=== PATIENT | female | born 1995 | race African-American/Black ===

== ENCOUNTER 2018-03-06 06:06 | Emergency (ER) | payer BC, OTHER ==
[2018-03-06 07:27] LABS: Absolute Lymphocytes (CBC) 2.3 K/uL (0.7-4.9); Absolute Monocytes 0.4 K/uL (0.1-1.3); Absolute Neutrophil 5.1 K/uL (1.8-8.0); Basophils % 0.4 % (0-1.3); Bicarbonate 25 mEq/L (21-31); Eosinophils % 1.9 % (0-4.4); Glucose Level 116 mg/dL (65-120); Hematocrit 36.4 % (36.0-45.0); Lipase 24 U/L (22-51); Lymphocytes % 28.7 % (15.3-44.8); MCV 80.5 fL (80-100); MPV 8.4 fL (7.6-11.3); Monocytes % 5.1 % (3.3-12.3); Potassium 3.6 mEq/L (3.6-5.0); RBC Red Blood Cell Count 4.53 M/uL (3.86-4.86); Sodium Level 135 mEq/L (135-145)
[2018-03-06 07:30] LABS: ALT/SGPT 15 IU/L (10-60); AST/SGOT 18 IU/L (10-42); Albumin 3.9 g/dL (3.2-5.5); Alkaline Phosphatase 69 IU/L (42-121); BUN Blood Urea Nitrogen 6 mg/dL (6-20); Bilirubin Total 0.3 mg/dL (0.3-1.2); Protein, Total 7.5 g/dL (6.0-8.3)
--- NOTE | 2018-03-06 07:58 | EKG ---
Test Date: 2018-03-06 Test Time: 07:39:20 American History Teacher: MESERET MEASUREMENT RESULTS: Intervals: Rate: 67 ME: 146 QRSD: 78 QT: 414 QTc: 437 [place]: P: 7 ME: 146 QRS: 47 T: 11 INTERPRETIVE STATEMENTS: Sinus rhythm with marked sinus arrhythmia Otherwise normal ECG No previous ECG available for comparison Electronically Signed On 03-06-18 07:57:58 CDT by Johnny Villanueva
--- NOTE | 2018-03-06 08:54 | RAD REPORT ---
EXAM DESCRIPTION: RAD - Chest Single View - 03/06/2018 6:53 am CLINICAL HISTORY: Chest pain. COMPARISON: None. FINDINGS: Portable technique limits examination quality. The lungs are grossly clear. The heart is normal in size. No displaced fractures. IMPRESSION: No acute intrathoracic process suspected.
--- NOTE | 2018-03-06 09:06 | EDPHYS ---
Physician Documentation [facility] Name: Pablito Irwin Age: 22 yrs Sex: Female : 1995 Arrival Date: 03/06/2018 Time: 06:10 Bed 15 Private MD: ED Physician Duane Morgan HPI: 03/06 06:54 This 22 yrs old Black Female presents to ER via Ambulatory with complaints of Chest pm1 Pain. 06:54 The patient or guardian reports chest pain that is located primarily in the substernal pm1 area. The pain does not radiate. Associated signs and symptoms: Pertinent negatives: cough, nausea, palpitations, shortness of breath, vomiting. Duration: The patient or guardian reports a single episode, that is now resolved. Modifying factors: the symptoms are aggravated by deep breath, emotionally stressful situations. Severity of pain: in the emergency department the pain has resolved. Patient had an argument with her sister and it caused her chest pain. Chest pain increased with deep breathing and palpation. Chest pain is now resolved. Patient with abdominal pain on and off for the past three weeks. Patient without current abdominal pain. No nausea, vomiting, diarrhea, or fever. 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 - Social history:: Smoking status: Patient/guardian denies using tobacco. ROS: 06:54 Constitutional: Negative for fever, chills, and weight loss, Eyes: Negative for injury, pm1 pain, redness, and discharge, ENT: Negative for injury, pain, and discharge, Neck: Negative for injury, pain, and swelling, Respiratory: Negative for shortness of breath, cough, wheezing, and pleuritic chest pain. 06:54 Back: Negative for injury and pain, : Negative for injury, bleeding, discharge, and swelling, MS/Extremity: Negative for injury and deformity, Skin: Negative for injury, rash, and discoloration, Neuro: Negative for headache, weakness, numbness, tingling, and seizure. 06:54 Cardiovascular: Positive for chest pain, Negative for edema, orthopnea, palpitations, paroxysmal nocturnal dyspnea. 06:54 Abdomen/GI: Positive for Abdominal pain on and off for the past three weeks that is not present now, Negative for nausea, vomiting, and diarrhea. Exam: 06:54 Constitutional: This is a well developed, well nourished patient who is awake, alert, pm1 and in no acute distress. Head/Face: Normocephalic, atraumatic. Eyes: Pupils equal round and reactive to light, extra-ocular motions intact. Lids and lashes normal. Conjunctiva and sclera are non-icteric and not injected. Cornea within normal limits. Periorbital areas with no swelling, redness, or edema. ENT: Nares patent. No nasal discharge, no septal abnormalities noted. Tympanic membranes are normal and external auditory canals are clear. Oropharynx with no redness, swelling, or masses, exudates, or evidence of obstruction, uvula midline. Mucous membranes moist. Neck: Trachea midline, no thyromegaly or masses palpated, and no cervical lymphadenopathy. Supple, full range of motion without nuchal rigidity, or vertebral point tenderness. No Meningismus. Chest/axilla: Normal chest wall appearance and motion. Nontender with no deformity. No lesions are appreciated. Cardiovascular: Regular rate and rhythm with a normal S1 and S2. No gallops, murmurs, or rubs. Normal PMI, no JVD. No pulse deficits. Respiratory: Lungs have equal breath sounds bilaterally, clear to auscultation and percussion. No rales, rhonchi or wheezes noted. No increased work of breathing, no retractions or nasal flaring. Abdomen/GI: Soft, non-tender, with normal bowel sounds. No distension or tympany. No guarding or rebound. No evidence of tenderness throughout. Back: No spinal tenderness. No costovertebral tenderness. Full range of motion. Skin: Warm, dry with normal turgor. Normal color with no rashes, no lesions, and no evidence of cellulitis. MS/ Extremity: Pulses equal, no cyanosis. Neurovascular intact. Full, normal range of motion. 06:54 Neuro: Orientation: is normal, Motor: moves all fours, Sensation: is normal, Gait: is steady, at a normal pace, without difficulty. Vital Signs: 06:29 BP 123 / 80; Pulse 86; Resp 18 S; Temp 98(O); Pulse Ox 99% on R/A; Weight 97.52 kg (R); bb Height 5 ft. 11 in. (180.34 cm) (R); Pain 8/10; 06:46 BP 138 / 78; Pulse 88; Resp 18; Pulse Ox 100% ; wh 09:34 BP 128 / 75; Pulse 86; Resp 18; Pulse Ox 100% on R/A; hj 06:29 Body Mass Index 29.99 (97.52 kg, 180.34 cm) bb MDM: 06:24 Patient medically screened. pm1 07:01 Data reviewed: vital signs. Data interpreted: Pulse oximetry: on room air is 100 %. pm1 Interpretation: normal. 09:05 Counseling: I had a detailed discussion with the patient and/or guardian regarding: the pm1 historical points, exam findings, and any diagnostic results supporting the discharge/admit diagnosis, lab results, radiology results, the need for outpatient follow up, to return to the emergency department if symptoms worsen or persist or if there are any questions or concerns that arise at home. 03/06 06:39 Order name: CBC with Diff; Complete Time: 08:31 pm03/06 06:39 Order name: Troponin (emerg Dept Use Only); Complete Time: 08:31 pm03/06 06:39 Order name: CMP; Complete Time: 08:31 pm03/06 06:40 Order name: Lipase; Complete Time: 08:31 pm1 03/06 06:55 Order name: Urine Dipstick--Ancillary (enter results) oe 03/06 06:56 Order name: Urine Dipstick-Ancillary EDFL 03/06 06:39 Order name: Urine Test (obtain specimen); Complete Time: 06:53 pm03/06 06:39 Order name: XRAY Chest (1 view); Complete Time: 09:04 pm03/06 06:39 Order name: EKG; Complete Time: 06:39 pm03/06 06:39 Order name: Cardiac monitoring; Complete Time: 06:54 pm03/06 06:39 Order name: EKG - Nurse/Tech; Complete Time: 06:57 pm1 03/06 06:39 Order name: IV Saline Lock; Complete Time: 06:54 pm03/06 06:39 Order name: Labs collected and sent; Complete Time: 06:57 pm1 03/06 06:56 Order name: Urine --Ancillary (enter results) oe 03/06 06:39 Order name: O2 Per Protocol; Complete Time: 06:54 pm1 03/06 06:39 Order name: O2 Sat Monitoring; Complete Time: 06:54 pm1 03/06 06:39 Order name: Urine Dipstick-Ancillary (obtain specimen); Complete Time: 06:53 pm1 Administered Medications: No medications were administered Disposition: 03/06/18 09:05 Discharged to Home. Impression: Chest pain, unspecified. - Condition is Stable. - Discharge Instructions: Nonspecific Chest Pain. - Medication Reconciliation Form, Thank You Letter form. - Follow up: Emergency Department; When: As needed; Reason: Worsening of condition. Follow up: Private Physician; When: 2 - 3 days; Reason: Recheck today's complaints, Continuance of care, Re-evaluation by your physician. - Problem is new. - Symptoms are resolved. Addendum: 03/11/2018 06:21 Co-signature as Attending Physician, Duane Morgan MD. g s Signatures: Dispatcher [employer] EDDaniella Wells RN RN Valentín Traore RN RN hj Seun Amin, PRICE CHECKER PRICE CHECKER pm1 Penelope Bautista Gregory, MD MD
--- NOTE | 2018-03-06 09:06 | ER ---
Nurse's Notes [facility] Name: Pablito Irwin Age: 22 yrs Sex: Female : 1995 Arrival Date: 03/06/2018 Time: 06:10 Bed 15 Private MD: Diagnosis: Chest pain, unspecified Presentation: 03/06 06:27 Presenting complaint: Patient states: she has had abdominal pain x 3 weeks did have bb diarrhea but not now, denies vomiting, cough, congestion states her feet have been swelling off and on x 3 weeks and she has frequent headaches. Transition of care: patient was not received from another setting of care. Onset of symptoms is unknown. Care prior to arrival: None. 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 - Social history:: Smoking status: Patient/guardian denies using tobacco. Screenin:44 Abuse screen: Denies threats or abuse. Denies injuries from another. Nutritional wh screening: No deficits noted. Tuberculosis screening: No symptoms or risk factors identified. Fall Risk None identified. Assessment: 06:41 General: Appears in no apparent distress. comfortable, Behavior is calm, cooperative, wh appropriate for age. Pain: Complains of pain in chest pain that started a few days ago and stomach pain that started a few weeks ago Pain does not radiate. Pain currently is 8 out of 10 on a pain scale. Neuro: Level of Consciousness is awake, alert, obeys commands, Oriented to person, place, time, situation. Cardiovascular: Reports chest pain, since a few days ago on and off Heart tones S1 S2 Capillary refill < 3 seconds. Respiratory: Reports shortness of breath Airway is patent Respiratory effort is even, unlabored, Respiratory pattern is regular, symmetrical, Breath sounds are clear bilaterally. GI: Abdomen is round non-distended, Bowel sounds present X 4 quads. Abd is soft and non tender X 4 quads. Reports upper abdominal pain, since a couple of weeks ago. : No signs and/or symptoms were reported regarding the genitourinary system. EENT: No signs and/or symptoms were reported regarding the EENT system. Derm: Skin is intact, is healthy with good turgor, Skin is pink, warm \T\ dry. normal. Musculoskeletal: Range of motion: intact in all extremities. 07:10 General: Appears in no apparent distress. comfortable, Behavior is calm, cooperative, hj appropriate for age. Pain: Complains of pain in chest Pain does not radiate. Pain currently is 8 out of 10 on a pain scale. Neuro: Level of Consciousness is awake, alert, obeys commands, Oriented to person, place, time, situation. Cardiovascular: Heart tones S1 S2 present Capillary refill is > 3 seconds Patient's skin is warm and dry. Respiratory: Reports shortness of breath Airway is patent Respiratory effort is even, unlabored, Respiratory pattern is regular, symmetrical, Breath sounds are clear. GI: Abdomen is non-distended, Bowel sounds present X 4 quads. Abd is soft and non tender Reports upper abdominal pain. : No signs and/or symptoms were reported regarding the genitourinary system. EENT: No signs and/or symptoms were reported regarding the EENT system. Derm: No signs and/or symptoms reported regarding the dermatologic system. Musculoskeletal: No signs and/or symptoms reported regarding the musculoskeletal system. Vital Signs: 06:29 BP 123 / 80; Pulse 86; Resp 18 S; Temp 98(O); Pulse Ox 99% on R/A; Weight 97.52 kg (R); bb Height 5 ft. 11 in. (180.34 cm) (R); Pain 8/10; 06:46 BP 138 / 78; Pulse 88; Resp 18; Pulse Ox 100% ; wh 09:34 BP 128 / 75; Pulse 86; Resp 18; Pulse Ox 100% on R/A; hj 06:29 Body Mass Index 29.99 (97.52 kg, 180.34 cm) bb ED Course: 06:10 Patient arrived in ED. al2 06:21 Seun Amin NP is PHCP. pm1 06:21 Duane Morgan MD is Attending Physician. pm1 06:29 Triage completed. bb 06:29 Arm band placed on Patient placed in an exam room, on a stretcher, on pulse oximetry. bb Family accompanied patient. 06:40 Penelope Bautista is Primary Nurse. 06:44 Patient has correct armband on for positive identification. Bed in low position. Call light in reach. Side rails up X 1. radiation monitor on. Pulse ox on. NIBP on. 06:53 X-ray completed. Portable x-ray completed in exam room. Patient tolerated procedure jb2 well. 06:53 XRAY Chest (1 view) In Process Unspecified. EDMS 06:57 Inserted saline lock: 22 gauge in right antecubital area, using aseptic technique. Blood collected. 07:45 EKG done, by flight data technician. reviewed by Babak Winter MD. tc 09:32 No provider procedures requiring assistance completed. IV discontinued, intact, hj bleeding controlled, No redness/swelling at site. Pressure dressing applied. Administered Medications: No medications were administered Outcome: 09:05 Discharge ordered by . pm1 09:34 Discharged to home ambulatory. hj 09:34 Condition: stable 09:34 Discharge instructions given to patient, Instructed on discharge instructions, follow up and referral plans. Demonstrated understanding of instructions, follow-up care. 09:35 Patient left the ED. Signatures: Dispatcher [employer] EDMO Guy Dial2 Daniella Contreras, RN RN Patsy Bates, neurology epilepsy physician EKG Ttc Valentín Dalton RN RN hj Seun Amin, SHIPPING LEAD SHIPPING LEAD pm1 Penelope Bautista Dyana Castaneda2
[2018-03-06 10:44] LABS: Urine Blood NEGATIVE (NEG); Urine Glucose NEGATIVE (NEG); Urine Protein NEGATIVE (NEG); Urine Specific Gravity >1.030 (1.005-1.030)
[2018-03-06 10:44] LABS: Urine Specific Gravity >1.030 (1.005-1.030)
== END 2018-03-06 09:35 | disposition home or self-care (01) ==
LOC: ER 06:06
DX: R07.9 Chest pain, unspecified (principal)
CPT/HCPCS: 36415; 71045; 80053; 81003; 81025; 83690; 84484; 85025; 93005; 99284

== ENCOUNTER 2018-04-16 19:14 | Emergency (ER) | payer BC ==
[2018-04-16] MEDS ORDERED: IBUPROFEN 200 MG TAB PO ONE (19:53)
--- NOTE | 2018-04-16 20:34 | ER ---
Nurse's Notes [facility] Name: Pablito Irwin Age: 23 yrs Sex: Female : 1995 Arrival Date: 04/16/2018 Time: 19:16 Bed 9 Private MD: Diagnosis: Pain in left shoulder Presentation: 04/16 19:19 Presenting complaint: Patient states: Sunday I was reaching for something and I just aj1 got this pain in my shoulder and then today when I was laying in bed I picked my daughter up and I had a sharp pain and its just gotten worse and worse after that. Limited ROM to left shoulder. 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 Transition of care: patient was not received from another setting of care. Onset of symptoms was April 14, 2018. Risk Assessment: Do you want to hurt yourself or someone else? Patient reports no desire to harm self or others. Initial Sepsis Screen: Does the patient meet any 2 criteria? No. Patient's initial sepsis screen is negative. Does the patient have a suspected source of infection? No. Patient's initial sepsis screen is negative. Care prior to arrival: None. 19:19 Method Of Arrival: Ambulatory [facility] 19:19 Acuity: ADONIS 4 aj1 Triage Assessment: 19:21 General: Appears in no apparent distress. uncomfortable, Behavior is calm, cooperative, aj1 appropriate for age. Pain: Complains of pain in anterior aspect of left shoulder and posterior aspect of left shoulder Pain does not radiate. Pain currently is 8 out of 10 on a pain scale. Quality of pain is described as sharp, Pain began 2-3 days ago. Is continuous, Alleviated by nothing. Aggravated by increased activity, repositioning. Musculoskeletal: Capillary refill < 3 seconds, in left fingers. Range of motion: intact in left shoulder. 20:00 Neuro: Level of Consciousness is alert, obeys commands, Oriented to person, place, rk2 time, situation. 20:00 Respiratory: Airway is patent Respiratory effort is even, unlabored, Respiratory rk2 pattern is regular, symmetrical. 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 - Social history:: Smoking status: Patient/guardian denies using tobacco. - Ebola Screening: : No symptoms or risks identified at this time. - Family history:: not pertinent. Screenin:00 Abuse screen: Denies threats or abuse. rk2 20:00 Nutritional screening: No deficits noted. Tuberculosis screening: No symptoms or risk rk2 factors identified. Fall Risk None identified. Vital Signs: 19:21 BP 123 / 75; Pulse 110; Resp 20; Temp 98.0; Pulse Ox 100% on R/A; Weight 97.52 kg (R); aj1 Height 5 ft. 11 in. (180.34 cm) (R); Pain 8/10; 19:21 Body Mass Index 29.99 (97.52 kg, 180.34 cm) aj1 ED Course: 19:16 Patient arrived in ED. am2 19:21 Triage completed. aj1 19:21 Arm band placed on Patient placed in an exam room. aj1 19:27 Armando Flores MD is Attending Physician. [facility] 19:32 Giulia Call, GAY is Primary Nurse. rk2 20:00 Patient has correct armband on for positive identification. Bed in low position. Call rk2 light in reach. 20:23 Shoulder Left (2 View) XRAY Sent. rk2 20:28 X-ray completed. Portable x-ray completed in exam room. Patient tolerated procedure kc2 well. 20:30 Shoulder Left (2 View) XRAY In Process Unspecified. EDMS 20:33 Venu Smith MD is Referral Physician. [facility] 20:54 No provider procedures requiring assistance completed. Patient did not have IV access rk2 during this emergency room visit. Administered Medications: 19:58 Drug: Motrin 600 mg Route: PO; rk2 20:52 Follow up: Response: No adverse reaction rk2 Outcome: 20:33 Discharge ordered by . erika 20:54 Discharged to home ambulatory. rk2 20:54 Condition: good 20:54 Discharge instructions given to patient, Prescriptions given X 2. 20:55 Patient left the ED. rk2 Signatures: Dispatcher [employer] EDME Martha Arriaga RN RN aj1 Armando Flores MD MD cha Carr, Kelsie 2 Keena Valadez am2 Giulia Call, RN RN rk2
--- NOTE | 2018-04-16 20:34 | EDPHYS ---
Physician Documentation [facility] Name: Pablito Irwin Age: 23 yrs Sex: Female : 1995 Arrival Date: 04/16/2018 Time: 19:16 Bed 9 Private MD: ED Physician Armando Flores HPI: 04/16 19:47 This 23 yrs old Black Female presents to ER via Ambulatory with complaints of Shoulder erika Pain. 19:47 The patient or guardian complains of decreased range of motion, pain. left shoulder. erika Context: resulted from an unknown reason, The patient experiences decreased range of motion. Onset: The symptoms/episode began/occurred 3 day(s) ago. Modifying factors: the symptoms are alleviated by remaining still, The symptoms are aggravated by movement, rotation of arm. Associated signs and symptoms: The patient has no apparent associated signs or symptoms. Severity of symptoms: At their worst the symptoms were mild, moderate, in the emergency department the symptoms are unchanged. The patient has not experienced similar symptoms in the past. 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 - Social history:: Smoking status: Patient/guardian denies using tobacco. - Ebola Screening: : No symptoms or risks identified at this time. - Family history:: not pertinent. ROS: 19:47 Constitutional: Negative for fever, chills, and weight loss, Eyes: Negative for injury, erika pain, redness, and discharge, ENT: Negative for injury, pain, and discharge, Neck: Negative for injury, pain, and swelling, Cardiovascular: Negative for chest pain, palpitations, and edema, Respiratory: Negative for shortness of breath, cough, wheezing, and pleuritic chest pain, Abdomen/GI: Negative for abdominal pain, nausea, vomiting, diarrhea, and constipation, Back: Negative for injury and pain, : Negative for injury, bleeding, discharge, and swelling, Skin: Negative for injury, rash, and discoloration, Neuro: Negative for headache, weakness, numbness, tingling, and seizure, Psych: Negative for depression, anxiety, suicide ideation, homicidal ideation, and hallucinations, Allergy/Immunology: Negative for hives, rash, and allergies, Endocrine: Negative for neck swelling, polydipsia, polyuria, polyphagia, and marked weight changes, Hematologic/Lymphatic: Negative for swollen nodes, abnormal bleeding, and unusual bruising. 19:47 MS/extremity: Positive for decreased range of motion, pain, tenderness, of the anterior aspect of left shoulder and posterior aspect of left shoulder. Exam: 19:47 Constitutional: This is a well developed, well nourished patient who is awake, alert, erika and in no acute distress. Head/Face: Normocephalic, atraumatic. Eyes: Pupils equal round and reactive to light, extra-ocular motions intact. Lids and lashes normal. Conjunctiva and sclera are non-icteric and not injected. Cornea within normal limits. Periorbital areas with no swelling, redness, or edema. ENT: Nares patent. No nasal discharge, no septal abnormalities noted. Tympanic membranes are normal and external auditory canals are clear. Oropharynx with no redness, swelling, or masses, exudates, or evidence of obstruction, uvula midline. Mucous membranes moist. Neck: Trachea midline, no thyromegaly or masses palpated, and no cervical lymphadenopathy. Supple, full range of motion without nuchal rigidity, or vertebral point tenderness. No Meningismus. Chest/axilla: Normal chest wall appearance and motion. Nontender with no deformity. No lesions are appreciated. Respiratory: Lungs have equal breath sounds bilaterally, clear to auscultation and percussion. No rales, rhonchi or wheezes noted. No increased work of breathing, no retractions or nasal flaring. Abdomen/GI: Soft, non-tender, with normal bowel sounds. No distension or tympany. No guarding or rebound. No evidence of tenderness throughout. Back: No spinal tenderness. No costovertebral tenderness. Full range of motion. Female : Normal external genitalia. Skin: Warm, dry with normal turgor. Normal color with no rashes, no lesions, and no evidence of cellulitis. Neuro: Awake and alert, GCS 15, oriented to person, place, time, and situation. Cranial nerves II-XII grossly intact. Motor strength 5/5 in all extremities. Sensory grossly intact. Cerebellar exam normal. Normal gait. 19:47 Cardiovascular: Rate: tachycardic, Rhythm: regular, Pulses: Pulses are 4+ in bilateral radial, brachial, femoral, popliteal, posterior tibial and and dorsalis pedis arteries.. Heart sounds: normal, Edema: is not appreciated, JVD: is not appreciated. Vital Signs: 19:21 BP 123 / 75; Pulse 110; Resp 20; Temp 98.0; Pulse Ox 100% on R/A; Weight 97.52 kg (R); aj1 Height 5 ft. 11 in. (180.34 cm) (R); Pain 8/10; 19:21 Body Mass Index 29.99 (97.52 kg, 180.34 cm) aj1 MDM: 19:27 Patient medically screened. [facility] 19:47 Data reviewed: vital signs, nurses notes, radiologic studies. [facility] 04/16 20:10 Order name: Urine Dipstick--Ancillary (enter results) [facility] 04/16 20:10 Order name: Urine --Ancillary (enter results) [facility] 04/16 19:46 Order name: Urine Dipstick-Ancillary (obtain specimen); Complete Time: 20:03 [facility] 04/16 19:46 Order name: Urine Test (obtain specimen); Complete Time: 20:03 [facility] 04/16 19:46 Order name: Shoulder Left (2 View) XRAY [facility] 04/16 19:47 Order name: Sling; Complete Time: 20:21 [facility] 04/16 19:47 Order name: Ice pack; Complete Time: 19:58 [facility] Administered Medications: 19:58 Drug: Motrin 600 mg Route: PO; rk2 20:52 Follow up: Response: No adverse reaction rk2 Disposition: 04/16/18 20:33 Discharged to Home. Impression: Pain in left shoulder. - Condition is Stable. - Discharge Instructions: Shoulder Pain, Shoulder Pain, [id number]. - Prescriptions for Naprosyn 500 mg Oral Tablet - take 1 tablet by ORAL route 2 times per day take with food; 20 tablet. Tylenol- Codeine #3 300-30 mg Oral Tablet - take 2 tablet by ORAL route every 6 hours As needed; 30 tablet. - Medication Reconciliation Form, Thank You Letter, Antibiotic Education, Prescription Opioid Use form. - Follow up: Private Physician; When: 5 - 6 days; Reason: Recheck today's complaints, Continuance of care, Re-evaluation by your physician. Follow up: Dr. Venu Smith; When: 2 - 3 days; Reason: Recheck today's complaints, Re-evaluation by your physician. - Problem is new. - Symptoms have improved. Signatures: Dispatcher [employer] EDMartha Jaramillo RN RN aj1 Armando Flores MD MD cha Kidder, Rhonda, RN RN rk2 Corrections: (The following items were deleted from the chart) 20:55 20:33 04/16/2018 20:33 Discharged to Home. Impression: Pain in left shoulder. Condition rk2 is Stable. Discharge Instructions: Shoulder Pain, Shoulder Pain, [id number]. Prescriptions for Naprosyn 500 mg Oral Tablet - take 1 tablet by ORAL route 2 times per day take with food; 20 tablet, Tylenol-Codeine #3 300-30 mg Oral Tablet - take 2 tablet by ORAL route every 6 hours As needed; 30 tablet. and Forms are Medication Reconciliation Form, Thank You Letter, Antibiotic Education, Prescription Opioid Use. Follow up: Private Physician; When: 5 - 6 days; Reason: Recheck today's complaints, Continuance of care, Re-evaluation by your physician. Follow up: Dr. Venu Smith; When: 2 - 3 days; Reason: Recheck today's complaints, Re-evaluation by your physician. Problem is new. Symptoms have improved. erika
--- NOTE | 2018-04-16 20:47 | RAD REPORT ---
EXAM DESCRIPTION: RAD - Shoulder Left 2 View - 04/16/2018 8:34 pm CLINICAL HISTORY: Left shoulder pain FINDINGS: No fracture or dislocation is seen. No bone or joint abnormality seen
[2018-04-16 22:23] LABS: Urine Blood NEGATIVE (NEG); Urine Glucose NEGATIVE (NEG); Urine Protein 1+ (NEG); Urine pH 7.5 (5.0-7.0)
== END 2018-04-16 20:55 | disposition home or self-care (01) ==
LOC: ER 19:14
DX: M25.512 Pain in left shoulder (principal)
CPT/HCPCS: 81003; 81025; 99283

== ENCOUNTER 2018-06-25 00:55 | Emergency (ER) | payer BC, OTHER, SELFPAY ==
--- NOTE | 2018-06-25 01:05 | EDPHYS ---
Physician Documentation [facility] Name: Pablito Irwin Age: 23 yrs Sex: Female : 1995 Arrival Date: 06/25/2018 Time: 00:55 Bed Waiting Private MD: ED Physician Babak Winter HPI: 06/25 01:30 This 23 yrs old Black Female presents to ER via Ambulatory with complaints of jr8 Toothache, Facial Pain. 01:30 The patient presents with pain. The problem is located in the right jaw. Onset: The jr8 symptoms/episode began/occurred acutely, 2 week(s) ago. Duration: The symptoms are continuous. Modifying factors: The symptoms are alleviated by nothing, the symptoms are aggravated by air, chewing, talking. Associated signs and symptoms: The patient has no apparent associated signs or symptoms. Severity of symptoms: At their worst the symptoms were moderate, in the emergency department the symptoms are unchanged. The patient has not experienced similar symptoms in the past. The patient has not recently seen a physician. 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 - Social history:: Smoking status: Patient/guardian denies using tobacco. - Ebola Screening: : No symptoms or risks identified at this time. ROS: 01:30 Eyes: Negative for injury, pain, redness, and discharge, Neck: Negative for injury, jr8 pain, and swelling, Cardiovascular: Negative for chest pain, palpitations, and edema, Respiratory: Negative for shortness of breath, cough, wheezing, and pleuritic chest pain, Abdomen/GI: Negative for abdominal pain, nausea, vomiting, diarrhea, and constipation, Back: Negative for injury and pain, MS/Extremity: Negative for injury and deformity, Skin: Negative for injury, rash, and discoloration, Neuro: Negative for headache, weakness, numbness, tingling, and seizure. 01:30 ENT: Positive for dental pain, Negative for drainage from ear(s), ear pain, tinnitus, nasal discharge, rhinorrhea, sinus congestion, sinus pain, sore throat, difficulty swallowing, difficulty handling secretions, hoarseness. Exam: 01:30 Eyes: Pupils equal round and reactive to light, extra-ocular motions intact. Lids and jr8 lashes normal. Conjunctiva and sclera are non-icteric and not injected. Cornea within normal limits. Periorbital areas with no swelling, redness, or edema. Neck: Trachea midline, no thyromegaly or masses palpated, and no cervical lymphadenopathy. Supple, full range of motion without nuchal rigidity, or vertebral point tenderness. No Meningismus. Cardiovascular: Regular rate and rhythm with a normal S1 and S2. No gallops, murmurs, or rubs. Normal PMI, no JVD. No pulse deficits. Respiratory: Lungs have equal breath sounds bilaterally, clear to auscultation and percussion. No rales, rhonchi or wheezes noted. No increased work of breathing, no retractions or nasal flaring. Abdomen/GI: Soft, non-tender, with normal bowel sounds. No distension or tympany. No guarding or rebound. No evidence of tenderness throughout. Back: No spinal tenderness. No costovertebral tenderness. Full range of motion. Skin: Warm, dry with normal turgor. Normal color with no rashes, no lesions, and no evidence of cellulitis. MS/ Extremity: Pulses equal, no cyanosis. Neurovascular intact. Full, normal range of motion. Neuro: Awake and alert, GCS 15, oriented to person, place, time, and situation. Cranial nerves II-XII grossly intact. Motor strength 5/5 in all extremities. Sensory grossly intact. Cerebellar exam normal. Normal gait. 01:30 ENT: Exam is negative for earache, ear discharge, hemotympanum, TM abnormalities, sinus tenderness, enlarged tonsils, pharyngitis, dysphagia, exudate, Dental exam: dental caries, that is moderate, specifically in the lower right second molar (#31), pain, that is moderate, specifically in the lower right second molar (#31). Vital Signs: 01:07 BP 112 / 81; Pulse 92; Resp 16 S; Temp 98.7(O); Pulse Ox 98% on R/A; Weight 93.44 kg bb (R); Height 5 ft. 11 in. (180.34 cm) (R); Pain 9/10; 01:07 Body Mass Index 28.73 (93.44 kg, 180.34 cm) bb MDM: 01:04 Patient medically screened. jr8 01:04 Data reviewed: vital signs, nurses notes, and as a result, I will discharge patient. jr8 Data interpreted: Pulse oximetry: on room air is 100 %. Interpretation: normal. Counseling: I had a detailed discussion with the patient and/or guardian regarding: the historical points, exam findings, and any diagnostic results supporting the discharge/admit diagnosis, the need for outpatient follow up, a dentist, to return to the emergency department if symptoms worsen or persist or if there are any questions or concerns that arise at home. Administered Medications: No medications were administered Disposition: 20:31 Co-signature as Attending Physician, Babak Winter MD I agree with the assessment and wv plan of care. Disposition: 06/25/18 01:05 Discharged to Home. Impression: Dental caries, Dentalgia . - Condition is Stable. - Prescriptions for Clindamycin HCl 300 mg Oral Capsule - take 1 capsule by ORAL route every 6 hours for 10 days; 40 capsule. Ibuprofen 800 mg Oral Tablet - take 1 tablet by ORAL route every 12 hours As needed take with food; 20 tablet. Tylenol- Codeine #3 300-30 mg Oral Tablet - take 2 tablets by ORAL route every 6 hours As needed; 12 tablet. - Medication Reconciliation Form, Thank You Letter, Antibiotic Education, Prescription Opioid Use form. - Follow up: Private Physician; When: 5 - 6 days; Reason: Recheck today's complaints, Continuance of care, Re-evaluation by your physician. - Problem is new. - Symptoms have improved. Signatures: Daniella Contreras RN RN bb Aditya Louis PA PA jr8 Babak Winter MD MD wv Corrections: (The following items were deleted from the chart) 01:14 01:05 06/25/2018 01:05 Discharged to Home. Impression: Dental caries; Dentalgia . bb Condition is Stable. Forms are Medication Reconciliation Form, Thank You Letter, Antibiotic Education, Prescription Opioid Use. Follow up: Private Physician; When: 5 - 6 days; Reason: Recheck today's complaints, Continuance of care, Re-evaluation by your physician. Problem is new. Symptoms have improved. jr8
--- NOTE | 2018-06-25 01:14 | ER ---
Nurse's Notes [facility] Name: Pablito Irwin Age: 23 yrs Sex: Female : 1995 Arrival Date: 06/25/2018 Time: 00:55 Bed Waiting Private MD: Diagnosis: Dental caries;Dentalgia Presentation: 06/25 01:08 Presenting complaint: Patient states: she has been having a toothache which started bb several months ago but has worsened over the last two weeks pt unable to sleep tonight. Transition of care: patient was not received from another setting of care. Onset of symptoms is unknown. Risk Assessment: Do you want to hurt yourself or someone else? Patient reports no desire to harm self or others. Initial Sepsis Screen: Does the patient meet any 2 criteria? No. Patient's initial sepsis screen is negative. Does the patient have a suspected source of infection? No. Patient's initial sepsis screen is negative. Care prior to arrival: None. 01:08 Method Of Arrival: Ambulatory bb 01:08 Acuity: ADONIS 5 bb Triage Assessment: 01:11 General: Appears in no apparent distress. uncomfortable, Behavior is calm, cooperative. bb Pain: Complains of pain in right jaw Pain currently is 9 out of 10 on a pain scale. EENT: Reports pain in right jaw. Neuro: Level of Consciousness is awake, alert, obeys commands, Oriented to person, place, time, situation. Cardiovascular: No deficits noted. Respiratory: Respiratory effort is even, unlabored. GI: No signs and/or symptoms were reported involving the gastrointestinal system. Derm: No deficits noted. No signs and/or symptoms reported regarding the dermatologic system. Musculoskeletal: Circulation, motion, and sensation intact. 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 - Social history:: Smoking status: Patient/guardian denies using tobacco. - Ebola Screening: : No symptoms or risks identified at this time. Screenin:13 Abuse screen: Denies threats or abuse. Nutritional screening: No deficits noted. bb Tuberculosis screening: No symptoms or risk factors identified. Fall Risk None identified. Assessment: 01:13 Reassessment: pt discharged from triage. bb Vital Signs: 01:07 BP 112 / 81; Pulse 92; Resp 16 S; Temp 98.7(O); Pulse Ox 98% on R/A; Weight 93.44 kg bb (R); Height 5 ft. 11 in. (180.34 cm) (R); Pain 9/10; 01:07 Body Mass Index 28.73 (93.44 kg, 180.34 cm) bb ED Course: 00:55 Patient arrived in ED. ds1 01:04 Aditya Louis PA is PHCP. jr8 01:04 Babak Winter MD is Attending Physician. jr8 01:09 Triage completed. bb 01:11 Arm band placed on Miguel BARNEY in triage for pt evaluation and recommendations pt to be bb given RXs and discharged home pt verbalized understanding of and agrees to plan of care.. 01:13 Patient has correct armband on for positive identification. bb 01:13 No provider procedures requiring assistance completed. Patient did not have IV access bb during this emergency room visit. Administered Medications: No medications were administered Outcome: 01:05 Discharge ordered by . jr8 01:14 Discharged to home ambulatory. bb 01:14 Condition: stable 01:14 Discharge instructions given to patient, Instructed on discharge instructions, follow up and referral plans. medication usage, Demonstrated understanding of instructions, follow-up care, medications, Prescriptions given X 3. 01:14 Patient left the ED. bb Signatures: Wilma Bangura ds1 Daniella Contreras, RN RN bb Aditya Louis PA PA jr8
== END 2018-06-25 01:14 | disposition home or self-care (01) ==
LOC: ER 00:55
DX: K02.9 Dental caries, unspecified (principal)
CPT/HCPCS: 99282

== ENCOUNTER 2019-05-10 17:52 | Emergency (ER) | payer SELFPAY ==
--- OUTSIDE RECORDS SUMMARY | 2019-05-10 17:55 | XMS REPORT ---
:1995 [facility] Address [address] [place] [address] Care Team Providers Name Role Phone Unavailable Unavailable Unavailable Problems This patient has no known problems. Allergies, Adverse Reactions, Alerts This patient has no known allergies or adverse reactions. Medications This patient has no known medications.
--- NOTE | 2019-05-10 18:55 | EDPHYS ---
Physician Documentation [facility] Name: Pablito Irwin Age: 24 yrs Sex: Female : 1995 Arrival Date: 05/10/2019 Time: 17:55 Bed 23 Private MD: Unknown, Unknown ED Physician Duane Morgan HPI: 05/10 18:51 This 24 yrs old Black Female presents to ER via Carried with complaints of Wrist Pain. snw 18:51 The patient or guardian reports decreased range of motion, pain. The complaints affect snw the left wrist diffusely. Context: The problem was sustained at work, resulted from lifting or pulling. Onset: The symptoms/episode began/occurred suddenly, yesterday. Associated signs and symptoms: Pertinent positives: edema, tenderness. Compartment Syndrome negative for numbness. The patient has not experienced similar symptoms in the past. It is unknown whether or not the patient has recently seen a physician. 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 - Social history:: Smoking status: Patient/guardian denies using tobacco. - Ebola Screening: : No symptoms or risks identified at this time. ROS: 18:51 Constitutional: Negative for fever, chills, and weight loss, Eyes: Negative for injury, snw pain, redness, and discharge, ENT: Negative for injury, pain, and discharge, Neck: Negative for injury, pain, and swelling, Cardiovascular: Negative for chest pain, palpitations, and edema, Respiratory: Negative for shortness of breath, cough, wheezing, and pleuritic chest pain, Abdomen/GI: Negative for abdominal pain, nausea, vomiting, diarrhea, and constipation, Back: Negative for injury and pain, : Negative for injury, bleeding, discharge, and swelling, Skin: Negative for injury, rash, and discoloration, Neuro: Negative for headache, weakness, numbness, tingling, and seizure. 18:51 MS/extremity: Positive for injury or acute deformity, pain, swelling, tenderness, of the dorsal aspect of left wrist. Exam: 18:41 Constitutional: This is a well developed, well nourished patient who is awake, alert, snw and in no acute distress. Head/Face: Normocephalic, atraumatic. Eyes: Pupils equal round and reactive to light, extra-ocular motions intact. Lids and lashes normal. Conjunctiva and sclera are non-icteric and not injected. Cornea within normal limits. Periorbital areas with no swelling, redness, or edema. ENT: Nares patent. No nasal discharge, no septal abnormalities noted. Tympanic membranes are normal and external auditory canals are clear. Oropharynx with no redness, swelling, or masses, exudates, or evidence of obstruction, uvula midline. Mucous membranes moist. Neck: Trachea midline, no thyromegaly or masses palpated, and no cervical lymphadenopathy. Supple, full range of motion without nuchal rigidity, or vertebral point tenderness. No Meningismus. Chest/axilla: Normal chest wall appearance and motion. Nontender with no deformity. No lesions are appreciated. Cardiovascular: Regular rate and rhythm with a normal S1 and S2. No gallops, murmurs, or rubs. Normal PMI, no JVD. No pulse deficits. Respiratory: Lungs have equal breath sounds bilaterally, clear to auscultation and percussion. No rales, rhonchi or wheezes noted. No increased work of breathing, no retractions or nasal flaring. Abdomen/GI: Soft, non-tender, with normal bowel sounds. No distension or tympany. No guarding or rebound. No evidence of tenderness throughout. Back: No spinal tenderness. No costovertebral tenderness. Full range of motion. Skin: Warm, dry with normal turgor. Normal color with no rashes, no lesions, and no evidence of cellulitis. Neuro: Awake and alert, GCS 15, oriented to person, place, time, and situation. Cranial nerves II-XII grossly intact. Motor strength 5/5 in all extremities. Sensory grossly intact. Cerebellar exam normal. Normal gait. Psych: Awake, alert, with orientation to person, place and time. Behavior, mood, and affect are within normal limits. 18:41 Musculoskeletal/extremity: Extremities: grossly normal except: noted in the dorsal left wrist with edema, tenderness with movement, pressure: ROM: intact in all extremities, Circulation is intact in all extremities. Sensation intact. Vital Signs: 17:58 Resp 16; Temp 97.3; Weight 104.33 kg; Height 5 ft. 4 in. (162.56 cm); la1 17:58 BP 130 / 73; Pulse 105; la1 19:30 BP 128 / 70; Pulse 100; Resp 18; Temp 97.5; Pulse Ox 100% on R/A; Pain 2/10; mg2 17:58 Body Mass Index 39.48 (104.33 kg, 162.56 cm) la1 MDM: 18:08 Patient medically screened. snw 18:55 Data reviewed: vital signs, nurses notes. Data interpreted: Pulse oximetry: on room air snw is 100 %. Interpretation: normal. Counseling: I had a detailed discussion with the patient and/or guardian regarding: the historical points, exam findings, and any diagnostic results supporting the discharge/admit diagnosis, the need for outpatient follow up, to return to the emergency department if symptoms worsen or persist or if there are any questions or concerns that arise at home. Special discussion: Based on the history and exam findings, there is no indication for further emergent testing or inpatient evaluation. I discussed with the patient/guardian the need to see the orthopedic surgeon for further evaluation of the symptoms. I discussed with the patient/guardian the need to see the primary care provider for further evaluation of the symptoms. 05/10 18:02 Order name: Wrist Left (3 View) XRAY; Complete Time: 19:02 snw 05/10 19:12 Order name: Wrist Splint; Complete Time: 19:29 snw Administered Medications: 19:30 Drug: TORadol 30 mg Route: IM; Site: left gluteus; mg2 19:30 Follow up: Response: No adverse reaction; Medication administered at discharge. mg2 Disposition: 05/11 12:51 Co-signature as Attending Physician, Duane Morgan MD. gs Disposition: 05/10/19 18:54 Discharged to Home. Impression: Pain in left wrist, Ganglion, left wrist. - Condition is Stable. - Discharge Instructions: Ganglion Cyst, Musculoskeletal Pain, Wrist Pain, Wrist Splint, Cryotherapy, Heat Therapy. - Prescriptions for Diclofenac Sodium 75 mg Oral Tablet Sustained Release - take 1 tablet by ORAL route 2 times per day; 30 tablet. - Medication Reconciliation Form, Thank You Letter, Antibiotic Education, Prescription Opioid Use form. - Follow up: Private Physician; When: 2 - 3 days; Reason: Recheck today's complaints, Continuance of care, Re-evaluation by your physician. Follow up: Emergency Department; When: As needed; Reason: Worsening of condition. Signatures: Dispatcher [employer] EDMS Celine Nieto, SPORTS MARKETING COORDINATOR-C SPORTS MARKETING COORDINATOR-Csnw Delroy Corrales RN RN la1 Duane Morgan MD MD gs Howie Lagos, GAY RN mg2 Corrections: (The following items were deleted from the chart) 05/10 19:32 18:54 05/10/2019 18:54 Discharged to Home. Impression: Pain in left wrist; Ganglion, mg2 left wrist. Condition is Stable. Forms are Medication Reconciliation Form, Thank You Letter, Antibiotic Education, Prescription Opioid Use. Follow up: Private Physician; When: 2 - 3 days; Reason: Recheck today's complaints, Continuance of care, Re-evaluation by your physician. Follow up: Emergency Department; When: As needed; Reason: Worsening of condition. snw
--- NOTE | 2019-05-10 18:55 | ER ---
Nurse's Notes [facility] Name: Pablito Irwin Age: 24 yrs Sex: Female : 1995 Arrival Date: 05/10/2019 Time: 17:55 Bed 23 Private MD: Unknown, Unknown Diagnosis: Pain in left wrist;Ganglion, left wrist Presentation: 05/10 17:57 Presenting complaint: Patient states: I picked up something at work on Sunday and my la1 left wrist has been hurting since then. Transition of care: patient was not received from another setting of care. Onset of symptoms was May 10, 2019. Risk Assessment: Do you want to hurt yourself or someone else? Patient reports no desire to harm self or others. Initial Sepsis Screen: Does the patient meet any 2 criteria? No. Patient's initial sepsis screen is negative. Does the patient have a suspected source of infection? No. Patient's initial sepsis screen is negative. Care prior to arrival: None. 17:57 Method Of Arrival: Carried la1 17:57 Acuity: ADONIS 4 la1 [place]: 19:31 lmp unknown mg2 Historical: - Allergies: 17:56 No Known Allergies; la1 - PMHx: 17:56 None; la1 - Immunization history:: Adult Immunizations up to date. - Social history:: Smoking status: Patient/guardian denies using tobacco. - Ebola Screening: : No symptoms or risks identified at this time. Screenin:59 Abuse screen: Denies threats or abuse. Nutritional screening: No deficits noted. la1 Tuberculosis screening: No symptoms or risk factors identified. Fall Risk None identified. Assessment: 17:58 General: Appears in no apparent distress. Behavior is calm, cooperative. Pain: la1 Complains of pain in palmar aspect of left wrist. Neuro: Level of Consciousness is awake, alert, obeys commands, Oriented to person, place, time, situation. Cardiovascular: Capillary refill < 3 seconds Patient's skin is warm and dry. Respiratory: Airway is patent Respiratory effort is even, unlabored. GI: No signs and/or symptoms were reported involving the gastrointestinal system. : No signs and/or symptoms were reported regarding the genitourinary system. Musculoskeletal: Circulation, motion, and sensation intact. Capillary refill < 3 seconds, is brisk, in bilateral fingers. Range of motion: limited in left wrist. Vital Signs: 17:58 Resp 16; Temp 97.3; Weight 104.33 kg; Height 5 ft. 4 in. (162.56 cm); la1 17:58 BP 130 / 73; Pulse 105; la1 19:30 BP 128 / 70; Pulse 100; Resp 18; Temp 97.5; Pulse Ox 100% on R/A; Pain 2/10; mg2 17:58 Body Mass Index 39.48 (104.33 kg, 162.56 cm) la1 ED Course: 17:55 Patient arrived in ED. ag5 17:56 Unknown, Unknown is Private Physician. ag5 17:57 Triage completed. la1 17:57 Arm band placed on left wrist. la1 17:59 Call light in reach. la1 17:59 No provider procedures requiring assistance completed. la1 18:02 Celine Nieto FNP-C is [facility]. snw 18:02 Duane Morgan MD is Attending Physician. snw 18:24 Wrist Left (3 View) XRAY In Process Unspecified. EDMS 18:48 Howie Lagos, RN is Primary Nurse. mg2 19:30 Patient did not have IV access during this emergency room visit. mg2 Administered Medications: 19:30 Drug: TORadol 30 mg Route: IM; Site: left gluteus; mg2 19:30 Follow up: Response: No adverse reaction; Medication administered at discharge. mg2 Outcome: 18:54 Discharge ordered by . snw 19:31 Discharged to home ambulatory. mg2 19:31 Condition: stable 19:31 Discharge instructions given to patient, Instructed on discharge instructions, follow up and referral plans. medication usage, Demonstrated understanding of instructions, follow-up care, medications, Prescriptions given X 1. 19:32 Patient left the ED. mg2 Signatures: Dispatcher [employer] EDMS Celine Nieto FNP-C SPORTS PSYCHOLOGIST-CsnDelroy Bunn RN RN la Howie Lagos RN RN mg2 Christin nIgram ag5
--- NOTE | 2019-05-10 18:56 | RAD REPORT ---
EXAM DESCRIPTION: RAD - Wrist Left 3 View - 05/10/2019 6:25 pm CLINICAL HISTORY: PAIN Pain COMPARISON: <Comparisons> FINDINGS: No fracture or dislocation seen. No foreign body or other soft tissue abnormality. IMPRESSION: Negative examination.
[2019-05-10] MEDS ORDERED: KETOROLAC 30 MG/ML INJ ONE (19:35)
== END 2019-05-10 19:32 | disposition home or self-care (01) ==
LOC: ER 17:52
DX: M67.432 Ganglion, left wrist (principal)
CPT/HCPCS: 96372; 99283

== ENCOUNTER 2019-05-18 17:19 | Emergency (ER) | payer SELFPAY ==
--- OUTSIDE RECORDS SUMMARY | 2019-05-18 17:21 | XMS REPORT ---
:1995 [facility] Address [address] [place] [address] Care Team Providers Name Role Phone Unavailable Unavailable Unavailable Problems This patient has no known problems. Allergies, Adverse Reactions, Alerts This patient has no known allergies or adverse reactions. Medications This patient has no known medications.
[2019-05-18] MEDS ORDERED: NA CHLORIDE 0.9% 1,000 ML ONE (18:21)
[2019-05-18] MEDS ORDERED: ACETAMINOPHEN 325 MG TABLET ONE (18:21)
[2019-05-18 18:29] LABS: Absolute Lymphocytes (CBC) 1.3 K/uL (0.7-4.9); Basophils % 0.2 % (0-1.3); Eosinophils % 0.2 % (0-4.4); Hematocrit 35.8 % (36.0-45.0); Lymphocytes % 10.5 % (15.3-44.8); MPV 8.5 fL (7.6-11.3); Monocytes % 5.4 % (3.3-12.3); RBC Red Blood Cell Count 4.29 M/uL (3.86-4.86)
[2019-05-18 18:42] LABS: ALT/SGPT 15 U/L (12-78); AST/SGOT 12 U/L (15-37); Albumin 3.5 g/dL (3.4-5.0); Alkaline Phosphatase 66 U/L (45-117); BUN Blood Urea Nitrogen 6 mg/dL (7-18); Bicarbonate 24 mmol/L (21-32); Bilirubin Total 0.4 mg/dL (0.2-1.0); Glucose Level 90 mg/dL (74-106); Potassium 3.8 mmol/L (3.5-5.1); Protein, Total 7.4 g/dL (6.4-8.2); Sodium Level 140 mmol/L (136-145); Troponin (Emerg Dept Use Only) < 0.02 ng/mL (0.0-0.045)
[2019-05-18 19:22] LABS: Urine Amorphous Sediment 1+ /HPF (NONE SEEN); Urine Bacteria 20-50 /HPF (<20); Urine Culture Reflex Order REFLEXED; Urine Mucus 1+ /HPF (NONE SEEN); Urine RBC <5 /HPF (NONE SEEN)
[2019-05-18 19:24] LABS: Urine Blood NEGATIVE (NEG); Urine Glucose NEGATIVE (NEG); Urine Protein NEGATIVE (NEG)
--- NOTE | 2019-05-18 19:51 | ER ---
Nurse's Notes [facility] Name: Pablito Irwin Age: 24 yrs Sex: Female : 1995 Arrival Date: 05/18/2019 Time: 17:22 Bed 28 Private MD: Diagnosis: Streptococcal pharyngitis;Urinary tract infection, site not specified Presentation: 05/18 17:27 Presenting complaint: Patient states: sore throat and mid-sternal chest pain. Pt denies aa5 cough. Transition of care: patient was not received from another setting of care. Onset of symptoms was April 2019. Risk Assessment: Do you want to hurt yourself or someone else? Patient reports no desire to harm self or others. Care prior to arrival: None. 17:27 Acuity: ADONIS 3 aa5 17:27 Method Of Arrival: Ambulatory aa5 18:20 Initial Sepsis Screen: Does the patient meet any 2 criteria? Temp <36.0*C (96.8*F)) or ls4 > 38.3*C (100.9*F). HR > 90 bpm. Yes Does the patient have a suspected source of infection? No. Patient's initial sepsis screen is negative. Triage Assessment: 18:19 General: Appears in no apparent distress. comfortable, Behavior is calm, cooperative. ls4 Pain: Complains of pain in uvula, left aspect of posterior pharynx and right aspect of posterior pharynx Pain currently is 9 out of 10 on a pain scale. Quality of pain is described as burning, tender. Neuro: No deficits noted. Cardiovascular: Reports chest pain, Denies diaphoresis, fatigue, lightheadedness, nausea, palpitations, shortness of breath, syncope, vomiting, Capillary refill < 3 seconds Patient's skin is warm and dry. Rhythm is regular. Respiratory: Airway is patent Respiratory effort is even, unlabored, Respiratory pattern is regular, Breath sounds are clear bilaterally. GI: No signs and/or symptoms were reported involving the gastrointestinal system. : No signs and/or symptoms were reported regarding the genitourinary system. Derm: No deficits noted. Musculoskeletal: No deficits noted. 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 - Social history:: Smoking status: Patient/guardian denies using tobacco. - Ebola Screening: : No symptoms or risks identified at this time. Screenin:18 Abuse screen: Denies threats or abuse. Denies injuries from another. Nutritional ls4 screening: No deficits noted. Tuberculosis screening: No symptoms or risk factors identified. Fall Risk None identified. Assessment: 18:22 Pain: Pain does not radiate. Pain began 1 day ago. ls4 19:38 Reassessment: Patient and/or family updated on plan of care and expected duration. Pain ls4 level reassessed. Patient is alert, oriented x 3, equal unlabored respirations, skin warm/dry/pink. Patient states symptoms have improved. 20:26 Reassessment: Patient and/or family updated on plan of care and expected duration. Pain ls4 level reassessed. Patient is alert, oriented x 3, equal unlabored respirations, skin warm/dry/pink. Patient states feeling better. Vital Signs: 17:28 BP 128 / 74; Pulse 117; Resp 18 S; Temp 102.6(O); Pulse Ox 100% on R/A; Weight 104.33 aa5 kg (R); Height 5 ft. 11 in. (180.34 cm) (R); Pain 9/10; 19:06 BP 100 / 69 RA (auto/lg); Pulse 97; Temp 101.2(O); Pulse Ox 88% on R/A; jp3 19:37 BP 104 / 75; Pulse 99; Resp 22; Temp 101.2; Pulse Ox 99% on R/A; Pain 6/10; ls4 20:27 BP 102 / 78; Pulse 98; Resp 20; Temp 100.2; Pulse Ox 99% on R/A; Pain 5/10; ls4 17:28 Body Mass Index 32.08 (104.33 kg, 180.34 cm) aa5 ED Course: 17:22 Patient arrived in ED. mr 17:27 Arm band placed on. aa5 17:28 [facility]. [facility] 17:34 Shlomo Gray PA is PHCP. [facility] 17:34 Armando Flores MD is Attending Physician. [facility] 17:39 Mayi Fabian, RN is Primary Nurse. ls4 17:50 EKG done, by ED staff, reviewed by Shlomo BARNEY. jp3 18:18 Patient has correct armband on for positive identification. Placed in gown. Bed in low ls4 position. Call light in reach. Side rails up X 1. Pulse ox on. NIBP on. child monitor on. Pillow given. Verbal reassurance given. 18:18 No provider procedures requiring assistance completed. Initial lab(s) drawn, by me, ls4 sent to lab. Inserted saline lock: 20 gauge in left antecubital area, using aseptic technique. Patient maintains SpO2 saturation greater than 95% on room air. 18:49 Chest Single View XRAY In Process Unspecified. EDMS 19:37 Urine Culture Sent. ls4 20:18 IV discontinued, intact, bleeding controlled, No redness/swelling at site. Pressure ls4 dressing applied. Administered Medications: 18:16 Drug: NS 0.9% 1000 ml Route: IV; Rate: 1 bolus; Site: left antecubital; ls4 19:16 Follow up: IV Status: Completed infusion; IV Intake: 1000ml ls4 18:16 Drug: Tylenol 650 mg Route: PO; ls4 19:02 Follow up: Response: No adverse reaction; Marked relief of symptoms ls4 19:38 Drug: Rocephin - (cefTRIAXone) 1 grams Route: IVPB; Infused Over: 10 mins; Site: left ls4 antecubital; 19:48 Follow up: Response: No adverse reaction; IV Status: Completed infusion; IV Intake: [id number] 19:45 Drug: Decadron - Dexamethasone 10 mg Route: IVP; Site: left antecubital; ls4 20:10 Follow up: Response: No adverse reaction; Marked relief of symptoms ls4 Intake: 19:16 IV: 1000ml; Total: 1000ml. ls4 19:48 IV: 10ml; Total: 1010ml. ls4 Outcome: 19:50 Discharge ordered by MD. gonzalez 20:27 Discharged to home ambulatory. ls4 20:27 Condition: stable 20:27 Discharge instructions given to patient, Instructed on discharge instructions, follow up and referral plans. medication usage, Demonstrated understanding of instructions, follow-up care, medications, Prescriptions given X 1. 20:28 Patient left the ED. ls4 Signatures: Dispatcher [employer] EDMS Marina Shlomo, PA PA jmm Hughes, Marya mr LakeSelam morrell, RN RN aa5 Julian Heath jp3 Mayi Fabian RN RN ls4 Corrections: (The following items were deleted from the chart) 19:45 19:38 Rocephin - (cefTRIAXone) 1 grams IVPB in left antecubital over 30 mins ls4 ls4
--- NOTE | 2019-05-18 19:51 | EDPHYS ---
Physician Documentation [facility] Name: Pablito Irwin Age: 24 yrs Sex: Female : 1995 Arrival Date: 05/18/2019 Time: 17:22 Bed 28 Private MD: ED Physician Armando Flores HPI: 05/18 17:45 This 24 yrs old Black Female presents to ER via Ambulatory with complaints of Chest jmm Pain, Sore Throat. 17:45 The patient presents with sore throat. Onset: The symptoms/episode began/occurred last jmm night. Modifying factors: The symptoms are alleviated by nothing, the symptoms are aggravated by nothing. Associated signs and symptoms: Pertinent positives: chest pain, fever, Sore throat Pertinent negatives shortness of breath. This is a 24 year old female with no chronic medical conditions that presents to the ED with complaints of sore throat and chest pain beginning last night. Patient denies cough or shortness of breath. . 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 - Social history:: Smoking status: Patient/guardian denies using tobacco. - Ebola Screening: : No symptoms or risks identified at this time. ROS: 17:45 Constitutional: Positive for fever. jmm 17:45 ENT: Positive for sore throat. 17:45 Cardiovascular: Positive for chest pain. 17:45 Neuro: Positive for headache. 17:45 All other systems are negative. Exam: 17:45 Constitutional: This is a well developed, well nourished patient who is awake, alert, jmm and in no acute distress. Head/Face: atraumatic. Eyes: EOMI, no conjunctival erythema appreciated 17:45 Respiratory: Normal respirations, no respiratory distress appreciated Abdomen/GI: Non distended, soft Back: Normal ROM Skin: General appearance color normal MS/ Extremity: Moves all extremities, no obvious deformities appreciated, no edema noted to the lower extremities Neuro: Awake and alert, normal gait Psych: Behavior is normal, Mood is normal, Patient is cooperative and pleasant 17:45 ENT: Posterior pharynx: Uvula: midline, erythema, that is moderate, peritonsillar mass, is not appreciated. 17:45 Neck: ROM/movement: is normal. 17:45 Cardiovascular: Rate: tachycardic, Rhythm: regular, Pulses: no pulse deficits are appreciated. 17:45 ECG was reviewed by the Attending Physician. Vital Signs: 17:28 BP 128 / 74; Pulse 117; Resp 18 S; Temp 102.6(O); Pulse Ox 100% on R/A; Weight 104.33 aa5 kg (R); Height 5 ft. 11 in. (180.34 cm) (R); Pain 9/10; 19:06 BP 100 / 69 RA (auto/lg); Pulse 97; Temp 101.2(O); Pulse Ox 88% on R/A; jp3 19:37 BP 104 / 75; Pulse 99; Resp 22; Temp 101.2; Pulse Ox 99% on R/A; Pain 6/10; ls4 20:27 BP 102 / 78; Pulse 98; Resp 20; Temp 100.2; Pulse Ox 99% on R/A; Pain 5/10; ls4 17:28 Body Mass Index 32.08 (104.33 kg, 180.34 cm) aa5 MDM: 17:45 Patient medically screened. [facility] 19:34 Data reviewed: vital signs, nurses notes. Counseling: I had a detailed discussion with [facility] the patient and/or guardian regarding: the historical points, exam findings, and any diagnostic results supporting the discharge/admit diagnosis, lab results, radiology results, the need for outpatient follow up, to return to the emergency department if symptoms worsen or persist or if there are any questions or concerns that arise at home. 19:34 ED course: Decreased pain in the ED. Wells score = 1.5. Patient is advised to follow up jm with pcp and otherwise given strict return precautions. Patient understood and agrees with the plan of care. . 05/18 17:53 Order name: Strep; Complete Time: 18:37 [facility] 05/18 17:53 Order name: CBC with Diff; Complete Time: 18:36 [facility] 05/18 17:53 Order name: CMP; Complete Time: 18:43 [facility] 05/18 17:53 Order name: Troponin (emerg Dept Use Only); Complete Time: 18:43 [facility] 05/18 18:41 Order name: Urine Microscopic Only; Complete Time: 19:23 [facility] 05/18 18:53 Order name: Urine Dipstick--Ancillary (enter results); Complete Time: 19:25 05/18 17:53 Order name: Saline Lock; Complete Time: 18:17 [facility] 05/18 17:53 Order name: Urine Dipstick-Ancillary (obtain specimen); Complete Time: 19:01 [facility] 05/18 17:53 Order name: Chest Single View XRAY [facility] 05/18 19:24 Order name: Urine Culture EDMS EC:45 Rate is 107 beats/min. Rhythm is regular. QRS Bivalve is Normal. HI interval is normal. [facility] QRS interval is normal. QT interval is normal. No Q waves. T waves are Normal. No ST changes noted. Administered Medications: 18:16 Drug: NS 0.9% 1000 ml Route: IV; Rate: 1 bolus; Site: left antecubital; ls4 19:16 Follow up: IV Status: Completed infusion; IV Intake: 1000ml ls4 18:16 Drug: Tylenol 650 mg Route: PO; ls4 19:02 Follow up: Response: No adverse reaction; Marked relief of symptoms ls4 19:38 Drug: Rocephin - (cefTRIAXone) 1 grams Route: IVPB; Infused Over: 10 mins; Site: left ls4 antecubital; 19:48 Follow up: Response: No adverse reaction; IV Status: Completed infusion; IV Intake: 70hcis9 19:45 Drug: Decadron - Dexamethasone 10 mg Route: IVP; Site: left antecubital; ls4 20:10 Follow up: Response: No adverse reaction; Marked relief of symptoms ls4 Disposition: 05/19 09:59 Co-signature as Attending Physician, Armando Flores MD I agree with the assessment and erika plan of care. Disposition: 05/18/19 19:50 Discharged to Home. Impression: Streptococcal pharyngitis, Urinary tract infection, site not specified. - Condition is Stable. - Discharge Instructions: Strep Throat, Urinary Tract Infection, Adult. - Prescriptions for cefdinir 300 mg Oral capsule - take 1 capsule by ORAL route every 12 hours for 10 days; 20 capsule. - Medication Reconciliation Form, Thank You Letter, Antibiotic Education, Prescription Opioid Use, Work release form form. - Follow up: Private Physician; When: 2 - 3 days; Reason: Recheck today's complaints, Continuance of care, Re-evaluation by your physician. Signatures: Dispatcher [employer] EDArmando Arteaga MD MD cha Mickail, Joel, PA PA jmm Calderon, Audri, RN RN aa5 Mayi Fabian RN RN ls4 Corrections: (The following items were deleted from the chart) 05/18 20:28 19:50 05/18/2019 19:50 Discharged to Home. Impression: Streptococcal pharyngitis; ls4 Urinary tract infection, site not specified. Condition is Stable. Forms are Medication Reconciliation Form, Thank You Letter, Antibiotic Education, Prescription Opioid Use. Follow up: Private Physician; When: 2 - 3 days; Reason: Recheck today's complaints, Continuance of care, Re-evaluation by your physician. carlos
[2019-05-18] MEDS ORDERED: DEXAMETHASONE 10 MG/ML VIAL ONE (19:55)
[2019-05-18] MEDS ORDERED: CEFTRIAXONE/SWI 1gm 1 GM/10 ML SYR ONE (19:55)
--- NOTE | 2019-05-18 21:02 | RAD REPORT ---
EXAM DESCRIPTION: RAD - Chest Single View - 05/18/2019 6:49 pm CLINICAL HISTORY: Chest pain COMPARISON: February 2018 TECHNIQUE: AP portable chest image was obtained 1843 hours . FINDINGS: Lungs are clear. Heart and vasculature are normal. No measurable pleural effusion and no p neumothorax. No acute bony abnormality seen. No acute aortic findings suspected. IMPRESSION: No acute cardiopulmonary process.
--- NOTE | 2019-05-20 14:54 | EKG ---
Test Date: 2019-05-18 Test Time: 17:47:12 Wire Inserter: FILOMENA MEASUREMENT RESULTS: Intervals: Rate: 107 RI: 146 QRSD: 70 QT: 328 QTc: 437 [place]: P: 22 RI: 146 QRS: 25 T: 4 INTERPRETIVE STATEMENTS: Sinus tachycardia Otherwise normal ECG Compared to ECG 03/06/2018 07:39:20 Sinus rhythm no longer present Sinus arrhythmia no longer present Electronically Signed On 05-20-19 14:47:54 CDT by Rivera Chino
== END 2019-05-18 20:28 | disposition home or self-care (01) ==
LOC: ER 17:19
DX: J02.0 Streptococcal pharyngitis (principal); N39.0 Urinary tract infection, site not specified
CPT/HCPCS: 36415; 71045; 80053; 81003; 81015; 84484; 85025; 87081; 87086; 87088; 93005; 96361; 96374; 96375; 99285; J0696; J1100; J7030

== ENCOUNTER 2019-09-22 23:26 | Emergency (ER) | payer SELFPAY ==
[2019-09-22] MEDS ORDERED: NA CHLORIDE 0.9% 1,000 ML ONE (23:51)
[2019-09-23 00:07] LABS: Urine Blood NEGATIVE (NEG); Urine Glucose NEGATIVE (NEG); Urine Protein TRACE (NEG); Urine Specific Gravity >1.030 (1.005-1.030)
[2019-09-23 00:29] LABS: Absolute Lymphocytes (CBC) 1.3 K/uL (0.7-4.9); Basophils % 0.4 % (0-1.3); Hematocrit 37.6 % (36.0-45.0); Lymphocytes % 23.3 % (15.3-44.8); MPV 7.8 fL (7.6-11.3); RBC Red Blood Cell Count 4.54 M/uL (3.86-4.86)
[2019-09-23 00:39] LABS: Potassium 3.5 mmol/L (3.5-5.1)
[2019-09-23] MEDS ORDERED: ACETAMINOPHEN 500 MG TAB ONE (00:58)
[2019-09-23] MEDS ORDERED: dexAMETHasone 10 MG/ML VIAL ONE (01:11)
[2019-09-23] MEDS ORDERED: CEFTRIAXONE/SWI 1gm 1 GM/10 ML SYR ONE (01:11)
--- NOTE | 2019-09-23 01:25 | ER ---
Nurse's Notes [facility] Name: Pablito Irwin Age: 24 yrs Sex: Female : 1995 Arrival Date: 09/22/2019 Time: 23:27 Bed 17 Private MD: Diagnosis: Streptococcal tonsillitis Presentation: 09/22 23:38 Presenting complaint: Patient states: fever, sore throat \T\ chills x 3 days. Transition aa1 of care: patient was not received from another setting of care. Onset of symptoms was September 20, 2019. Risk Assessment: Do you want to hurt yourself or someone else? Patient reports no desire to harm self or others. Initial Sepsis Screen: Does the patient meet any 2 criteria? Temp <36.0*C (96.8*F)) or > 38.3*C (100.9*F). HR > 90 bpm. Yes Does the patient have a suspected source of infection? No. Patient's initial sepsis screen is negative. Care prior to arrival: None. 23:38 Method Of Arrival: Ambulatory aa1 23:38 Acuity: ADONIS 4 aa1 Triage Assessment: 23:39 General: Appears in no apparent distress. uncomfortable, Behavior is calm, cooperative, aa1 appropriate for age. 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 - Social history:: Smoking status: Patient/guardian denies using tobacco. - Ebola Screening: : Patient denies exposure to infectious person Patient denies travel to an Ebola-affected area in the 21 days before illness onset. Screenin:43 Abuse screen: Denies threats or abuse. Denies injuries from another. Nutritional wh screening: No deficits noted. Tuberculosis screening: No symptoms or risk factors identified. Fall Risk None identified. Assessment: 23:47 General: Appears in no apparent distress. Behavior is calm, cooperative, appropriate wh for age. Pain: Complains of pain in Throat Pain does not radiate. Pain currently is 5 out of 10 on a pain scale. Quality of pain is described as aching, Pain began 2-3 days ago. Neuro: Level of Consciousness is awake, alert, obeys commands, Oriented to person, place, time, situation, Appropriate for age. Cardiovascular: Heart tones S1 S2. Respiratory: Airway is patent Respiratory effort is even, unlabored, Respiratory pattern is regular, symmetrical. GI: Abdomen is flat, non-distended. : No signs and/or symptoms were reported regarding the genitourinary system. EENT: Throat is pink. Derm: Skin is intact, is healthy with good turgor, Skin is pink, warm \T\ dry. normal. Musculoskeletal: Circulation, motion, and sensation intact. 09/23 01:00 Reassessment: Patient appears in no apparent distress at this time. No changes from previously documented assessment. Patient and/or family updated on plan of care and expected duration. Pain level reassessed. Patient is alert, oriented x 3, equal unlabored respirations, skin warm/dry/pink. 01:46 Reassessment: Patient appears in no apparent distress at this time. No changes from previously documented assessment. Patient and/or family updated on plan of care and expected duration. Pain level reassessed. Patient is alert, oriented x 3, equal unlabored respirations, skin warm/dry/pink. Patient states feeling better. Patient states symptoms have improved. Vital Signs: 09/22 23:39 BP 129 / 88; Pulse 106; Resp 18; Temp 102.5(O); Pulse Ox 100% on R/A; Weight 89.81 kg; aa1 Height 5 ft. 11 in. (180.34 cm); Pain 8/10; 09/23 01:00 BP 121 / 52; Pulse 96; Resp 18; Temp 101; Pulse Ox 100% ; wh 01:46 BP 124 / 74; Pulse 94; Resp 18; Temp 100.4; Pulse Ox 99% on R/A; 09/22 23:39 Body Mass Index 27.62 (89.81 kg, 180.34 cm) aa1 ED Course: 09/22 23:27 Patient arrived in ED. ds1 23:34 Armando Murillo PA is PHCP. cp 23:34 Chalo Hdez MD is Attending Physician. cp 23:35 Peneloep Bautista is Primary Nurse. wh 23:39 Triage completed. aa1 23:39 Arm band placed on right wrist. Patient placed in an exam room, on a stretcher. aa1 23:47 Patient has correct armband on for positive identification. Bed in low position. Call light in reach. Side rails up X 1. Pulse ox on. NIBP on. 23:50 Inserted saline lock: 20 gauge in right antecubital area, using aseptic technique. Blood collected. By [facility] tech. 09/23 01:47 No provider procedures requiring assistance completed. IV discontinued, intact, bleeding controlled, No redness/swelling at site. Administered Medications: 00:09 Drug: NS 0.9% 1000 ml Route: IV; Rate: 1 bolus; Site: right antecubital; 01:00 Follow up: Response: No adverse reaction; IV Status: Completed infusion 01:00 Drug: Tylenol 1000 mg Route: PO; 01:49 Follow up: Response: No adverse reaction; Temperature is decreased 01:14 Drug: Decadron - Dexamethasone 10 mg Route: IVP; Site: right antecubital; 01:49 Follow up: Response: No adverse reaction 01:16 Drug: Rocephin 1 grams Route: IV; Rate: calculated rate; Site: right antecubital; 01:49 Follow up: Response: No adverse reaction; IV Status: Completed infusion 01:46 Drug: Motrin 600 mg Route: PO; 01:49 Follow up: Response: No adverse reaction Outcome: 01:24 Discharge ordered by . prasanna 01:48 Discharged to home ambulatory. 01:48 Condition: stable 01:48 Discharge instructions given to patient, Instructed on discharge instructions, follow up and referral plans. medication usage, POC Strep Tonsillitis Demonstrated understanding of instructions, follow-up care, medications, POC Prescriptions given X 2. 01:49 Patient left the ED. Signatures: Coleen Shoemaker RN RN aa1 Wilma Bangura ds1 Armando Murillo PA PA cp Habalo, Winsy
--- NOTE | 2019-09-23 01:25 | EDPHYS ---
Physician Documentation [facility] Name: Pablito Irwin Age: 24 yrs Sex: Female : 1995 Arrival Date: 09/22/2019 Time: 23:27 Bed 17 Private MD: ED Physician Chalo Hdez HPI: 09/22 23:50 This 24 yrs old Black Female presents to ER via Ambulatory with complaints of Cough, cp Unable to swallow. 23:50 The patient presents with sore throat, dysphagia, of both solids and liquids. cp 23:50 The patient describes throat pain as constant. Onset: The symptoms/episode cp began/occurred 3 day(s) ago. Severity of symptoms: in the emergency department the symptoms are unchanged, despite home interventions. Associated signs and symptoms: Pertinent positives: dysphagia, fever, Sore throat slight cough, Pertinent negatives diarrhea, flu-like symptoms, headache, vomiting, neck pain, neck stiffness. 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 - Social history:: Smoking status: Patient/guardian denies using tobacco. - Ebola Screening: : Patient denies exposure to infectious person Patient denies travel to an Ebola-affected area in the 21 days before illness onset. ROS: 23:55 Eyes: Negative for injury, pain, redness, and discharge. cp 23:55 Constitutional: Positive for chills, fever, Negative for body aches, poor PO intake. 23:55 ENT: Positive for difficulty swallowing, sore throat, Negative for drainage from ear(s), ear pain, difficulty handling secretions. 23:55 Respiratory: Negative for cough, shortness of breath, wheezing. 23:55 Abdomen/GI: Negative for vomiting, diarrhea, constipation. 23:55 Skin: Negative for rash. 23:55 Neuro: Negative for headache, weakness. 23:55 All other systems are negative. Exam: 09/23 00:05 Constitutional: The patient appears in no acute distress, alert, awake, non-toxic, well cp developed, well nourished. 00:05 Head/Face: Normocephalic, atraumatic. cp 00:05 Eyes: Periorbital structures: appear normal, Conjunctiva: normal, no exudate, no injection, Lids and lashes: appear normal, bilaterally. 00:05 ENT: External ear(s): are unremarkable, Ear canal(s): are normal, clear, TM's: bulging, is not appreciated, bilaterally, dullness, bilaterally, erythema, is not appreciated, bilaterally, Nose: is normal, Mouth: Lips: moist, Oral mucosa: moist, abscess, is not appreciated, Posterior pharynx: Airway: no evidence of obstruction, patent, Tonsils: bilaterally enlarged, with erythema, Uvula: midline, erythema, that is moderate, exudate, is not appreciated. 00:05 Neck: ROM/movement: is normal, is supple, without pain, no range of motions limitations, no meningismus, no nuchal rigidity. 00:05 Chest/axilla: Inspection: normal, Palpation: is normal, no crepitus, no tenderness. 00:05 Cardiovascular: Rate: tachycardic, Rhythm: regular. 00:05 Respiratory: the patient does not display signs of respiratory distress, Respirations: normal, no use of accessory muscles, no retractions, no splinting, no tachypnea, labored breathing, is not present, Breath sounds: are clear throughout, no decreased breath sounds, no stridor, no wheezing. 00:05 Abdomen/GI: Inspection: abdomen appears normal, Palpation: abdomen is soft and non-tender, in all quadrants. 00:05 Back: pain, is absent, ROM is normal. 00:05 Skin: no rash present. 00:05 Neuro: Orientation: to person, place \T\ time. Mentation: is normal, Motor: moves all fours, strength is normal. Vital Signs: 09/22 23:39 BP 129 / 88; Pulse 106; Resp 18; Temp 102.5(O); Pulse Ox 100% on R/A; Weight 89.81 kg; aa1 Height 5 ft. 11 in. (180.34 cm); Pain 8/10; 09/23 01:00 BP 121 / 52; Pulse 96; Resp 18; Temp 101; Pulse Ox 100% ; wh 01:46 BP 124 / 74; Pulse 94; Resp 18; Temp 100.4; Pulse Ox 99% on R/A; wh 09/22 23:39 Body Mass Index 27.62 (89.81 kg, 180.34 cm) aa1 MDM: 09/22 23:39 Patient medically screened. cp 09/23 00:00 Differential diagnosis: apthous stomatitis, epiglottitis, tiffany-mcnally virus, group A cp strep tonsillitis, marielos's angina, peritonsillar abscess pharyngitis, retropharyngeal abcess. 01:24 Data reviewed: vital signs, nurses notes, lab test result(s). cp 01:24 Counseling: I had a detailed discussion with the patient and/or guardian regarding: the cp historical points, exam findings, and any diagnostic results supporting the discharge/admit diagnosis, lab results, the need for outpatient follow up, a family practitioner, to return to the emergency department if symptoms worsen or persist or if there are any questions or concerns that arise at home. Response to treatment: the patient's symptoms have markedly improved after treatment, patient is well hydrated. and as a result, I will discharge patient. 09/22 23:44 Order name: CBC with Diff; Complete Time: 00:46 cp 09/22 23:44 Order name: BMP; Complete Time: 00:46 cp 09/23 00:46 Interpretation: Normal except: GFR 82; CA 8.0. cp 09/22 23:44 Order name: Strep; Complete Time: 01:05 cp 09/23 01:05 Interpretation: Abnormal: GP A STREP SC \T\nbsp; GROUP A STREP SCREEN-- \T\nbsp; \T\nbsp; cp POSITIVE. 09/22 23:44 Order name: Influenza Screen (a \T\ B) cp 09/22 23:44 Order name: [place] Screen Profile; Complete Time: 00:46 cp 09/23 00:03 Order name: Urine Dipstick--Ancillary (enter results) 2 09/23 00:03 Order name: Urine --Ancillary (enter results) 2 09/23 00:07 Order name: Urine --Ancillary; Complete Time: 00:46 EDMS 09/23 00:07 Order name: Urine Dipstick-Ancillary; Complete Time: 00:46 EDMS 09/22 23:44 Order name: Urine Dipstick-Ancillary (obtain specimen); Complete Time: 00:01 cp 09/22 23:44 Order name: Urine Test (obtain specimen); Complete Time: 00: cp 09/22 23:44 Order name: IV; Complete Time: 00: cp 09/23 01:06 Order name: PO challenge; Complete Time: 01:16 cp Administered Medications: 00:09 Drug: NS 0.9% 1000 ml Route: IV; Rate: 1 bolus; Site: right antecubital; 01:00 Follow up: Response: No adverse reaction; IV Status: Completed infusion 01:00 Drug: Tylenol 1000 mg Route: PO; :49 Follow up: Response: No adverse reaction; Temperature is decreased 01:14 Drug: Decadron - Dexamethasone 10 mg Route: IVP; Site: right antecubital; :49 Follow up: Response: No adverse reaction 01:16 Drug: Rocephin 1 grams Route: IV; Rate: calculated rate; Site: right antecubital; :49 Follow up: Response: No adverse reaction; IV Status: Completed infusion :46 Drug: Motrin 600 mg Route: PO; :49 Follow up: Response: No adverse reaction Disposition: 05:54 Co-signature as Attending Physician, Chalo Hdez MD I agree with the assessment and tw4 plan of care. Disposition: 09/23/19 01:24 Discharged to Home. Impression: Streptococcal tonsillitis. - Condition is Stable. - Discharge Instructions: Tonsillitis. - Prescriptions for Augmentin 875- 125 mg Oral Tablet - take 1 tablet by ORAL route every 12 hours for 10 days; 20 tablet. Ibuprofen 800 mg Oral Tablet - take 1 tablet by ORAL route every 8 hours As needed take with food; 30 tablet. - Medication Reconciliation Form, Thank You Letter, Antibiotic Education, Prescription Opioid Use form. - Follow up: Private Physician; When: 2 - 3 days; Reason: Worsening of condition. - Problem is new. - Symptoms have improved. Signatures: Dispatcher [employer] Coleen Monsalve RN RN aa1 Armando Murillo PA PA cp Habalo, Winsy wh Wadley, Terrence, MD MD tw4 Corrections: (The following items were deleted from the chart) 00:46 00:46 Normal except: GFR 82. cp cp 01:49 01:24 09/23/2019 01:24 Discharged to Home. Impression: Streptococcal tonsillitis. wh Condition is Stable. Forms are Medication Reconciliation Form, Thank You Letter, Antibiotic Education, Prescription Opioid Use. Follow up: Private Physician; When: 2 - 3 days; Reason: Worsening of condition. Problem is new. Symptoms have improved. cp
[2019-09-23] MEDS ORDERED: IBUPROFEN 400 MG TAB ONE (01:43)
[2019-09-23] MEDS ORDERED: IBUPROFEN 200 MG TAB PO ONE (01:43)
[2019-09-23 02:05] VITALS: BP 124/74; TEMP 100.4; O2SAT 99
== END 2019-09-23 01:49 | disposition home or self-care (01) ==
LOC: ER 23:26
DX: J03.00 Acute streptococcal tonsillitis, unspecified (principal)
CPT/HCPCS: 36415; 80048; 81003; 81025; 85025; 86308; 87081; 87804; 96361; 96365; 96375; 99284; J0696; J1100; J7030

== ENCOUNTER 2020-02-03 18:30 | Emergency (ER) | payer BC, SELFPAY ==
--- OUTSIDE RECORDS SUMMARY | 2020-02-03 18:32 | XMS REPORT ---
:1995 [facility] Ronak Quach. [address] [place] [address] Care Team Providers Name Role Phone Unavailable Unavailable Unavailable Problems This patient has no known problems. Allergies, Adverse Reactions, Alerts This patient has no known allergies or adverse reactions. Medications This patient has no known medications.
--- NOTE | 2020-02-03 21:39 | ER ---
Nurse's Notes [facility] Name: Pablito Irwin Age: 24 yrs Sex: Female : 1995 Arrival Date: 02/03/2020 Time: 18:33 Bed 5 Private MD: Diagnosis: Acute upper respiratory infection, unspecified Presentation: 02/02 18:35 Chief complaint: Patient states: sore throat x 2 days. Coronavirus screen: The patient ss has NOT traveled to a country currently being monitored by the [facility] within the last 14 days. Proceed with normal triage procedures. Ebola Screen: Patient denies exposure to infectious person. Patient denies travel to an Ebola-affected area in the 21 days before illness onset. Initial Sepsis Screen: Does the patient meet any 2 criteria? No. Patient's initial sepsis screen is negative. Does the patient have a suspected source of infection? No. Patient's initial sepsis screen is negative. Risk Assessment: Do you want to hurt yourself or someone else? Patient reports no desire to harm self or others. 18:35 Method Of Arrival: Ambulatory ss 18:35 Acuity: ADONIS 4 ss Historical: - Allergies: 18:43 No Known Allergies; ss - Home Meds: 18:43 None [Active]; ss - PMHx: 18:43 None; ss - PSHx: 18:43 None; ss - Immunization history:: Adult Immunizations up to date. - Social history:: Smoking status: Patient denies any tobacco usage or history of. Screenin:33 Abuse screen: Denies threats or abuse. Nutritional screening: No deficits noted. ea Tuberculosis screening: No symptoms or risk factors identified. Fall Risk None identified. Assessment: 20:39 General: Appears uncomfortable, Behavior is appropriate for age. Pain: Complains of ea pain in sore throat. Neuro: Level of Consciousness is awake, alert, obeys commands, Oriented to person, place, time, situation. Cardiovascular: Patient's skin is warm and dry. Respiratory: Airway is patent Respiratory effort is even, unlabored, Parent/caregiver reports the patient having cough that is. EENT: Throat is reddened. Derm: Skin is pink, warm \T\ dry. 21:54 Reassessment: Patient and/or family updated on plan of care and expected duration. Pain ea level reassessed. Patient is alert, oriented x 3, equal unlabored respirations, skin warm/dry/pink. Discharge instruction given to patient, verbalized the understanding of instruction. pt left ED ambulatory accompanied by family. Pt tolerating well. Vital Signs: 18:35 BP 127 / 82; Pulse 103; Resp 15; Temp 98.1(TE); Pulse Ox 100% on R/A; Weight 102.06 kg; ss Height 5 ft. 11 in. (180.34 cm); Pain 8/10; 21:12 BP 104 / 78; Pulse 89; Resp 18; Temp 98.6; Pulse Ox 98% ; ea 18:35 Body Mass Index 31.38 (102.06 kg, 180.34 cm) ED Course: 18:33 Patient arrived in ED. ag5 18:42 Triage completed. ss 18:43 Arm band placed on right wrist. 20:18 Armando Murillo PA is PHCP. cp 20:18 Armando Flores MD is Attending Physician. prasanna 20:33 Sena Hodges, RN is Primary Nurse. ea 20:40 Patient has correct armband on for positive identification. Bed in low position. Call ea light in reach. Side rails up X 1. 21:55 No provider procedures requiring assistance completed. Patient did not have IV access ea during this emergency room visit. Administered Medications: No medications were administered Outcome: 21:38 Discharge ordered by . cp 21:55 Discharged to home ambulatory, with family. ea 21:55 Condition: stable 21:55 Discharge instructions given to patient, Instructed on discharge instructions, follow up and referral plans. medication usage, Demonstrated understanding of instructions, follow-up care, medications, Prescriptions given X 1. 21:55 Patient left the ED. ea Signatures: Tiara Jesus, RN RN Armando Murillo PA PA cp Antunez, Elena, GAY RN Christin Colin ag5
--- NOTE | 2020-02-03 21:39 | EDPHYS ---
Physician Documentation [facility] Name: Pablito Irwin Age: 24 yrs Sex: Female : 1995 Arrival Date: 02/03/2020 Time: 18:33 Bed 5 Private MD: ED Physician Armando Flores HPI: 02/02 20:40 This 24 yrs old Black Female presents to ER via Ambulatory with complaints of Sore cp Throat. 20:40 The patient presents with sore throat. Onset: The symptoms/episode began/occurred 2 cp day(s) ago. Associated signs and symptoms: Pertinent positives: cough, fever, Pertinent negatives diarrhea, dysphagia, vomiting. Historical: - Allergies: 18:43 No Known Allergies; ss - Home Meds: 18:43 None [Active]; ss - PMHx: 18:43 None; ss - PSHx: 18:43 None; ss - Immunization history:: Adult Immunizations up to date. - Social history:: Smoking status: Patient denies any tobacco usage or history of. ROS: 20:45 Constitutional: Negative for body aches, chills, fever, poor PO intake. cp 20:45 Eyes: Negative for injury, pain, redness, and discharge. cp 20:45 ENT: Positive for sore throat, Negative for drainage from ear(s), ear pain, difficulty cp swallowing, difficulty handling secretions. 20:45 Neck: Negative for pain with movement, pain at rest, stiffness. 20:45 Cardiovascular: Negative for chest pain, edema, palpitations. 20:45 Respiratory: Positive for cough, Negative for shortness of breath, wheezing. 20:45 Abdomen/GI: Negative for abdominal pain, nausea, vomiting, and diarrhea. 20:45 Skin: Negative for rash. 20:45 Neuro: Negative for altered mental status, headache. 20:45 All other systems are negative. cp Exam: 20:50 Constitutional: The patient appears in no acute distress, alert, awake, non-toxic, well cp developed, well nourished. 20:50 Head/Face: Normocephalic, atraumatic. cp 20:50 Eyes: Periorbital structures: appear normal, Conjunctiva: normal, no exudate, no injection, Lids and lashes: appear normal, bilaterally. 20:50 ENT: External ear(s): are unremarkable, Ear canal(s): are normal, clear, TM's: bulging, is not appreciated, bilaterally, dullness, bilaterally, erythema, is not appreciated, bilaterally, Nose: is normal, Mouth: Lips: moist, Oral mucosa: moist, Posterior pharynx: Airway: no evidence of obstruction, patent, Tonsils: no enlargement, no exudate, Uvula: midline, swelling, is not appreciated, erythema, is not appreciated, exudate, is not appreciated. 20:50 Neck: ROM/movement: Meningeal signs: are not present, Lymph nodes: no appreciated lymphadenopathy. 20:50 Chest/axilla: Inspection: normal. 20:50 Cardiovascular: Rate: tachycardic. 20:50 Respiratory: the patient does not display signs of respiratory distress, Respirations: normal, no use of accessory muscles, no retractions, labored breathing, is not present, Breath sounds: are clear throughout, no decreased breath sounds, no stridor, no wheezing. 20:50 Abdomen/GI: Exam negative for discomfort, distension, guarding, Inspection: abdomen appears normal. 20:50 Skin: no rash present. cp Vital Signs: 18:35 BP 127 / 82; Pulse 103; Resp 15; Temp 98.1(TE); Pulse Ox 100% on R/A; Weight 102.06 kg; ss Height 5 ft. 11 in. (180.34 cm); Pain 8/10; 21:12 BP 104 / 78; Pulse 89; Resp 18; Temp 98.6; Pulse Ox 98% ; ea 18:35 Body Mass Index 31.38 (102.06 kg, 180.34 cm) MDM: 20:29 Patient medically screened. erika 21:00 Differential diagnosis: group A strep tonsillitis, laryngitis, peritonsillar abscess cp pharyngitis, retropharyngeal abcess tonsillitis, upper respiratory infection, uvulitis, influenza. 21:37 Data reviewed: vital signs, nurses notes, lab test result(s), and as a result, I will cp discharge patient. 21:37 Counseling: I had a detailed discussion with the patient and/or guardian regarding: the cp historical points, exam findings, and any diagnostic results supporting the discharge/admit diagnosis, lab results, to return to the emergency department if symptoms worsen or persist or if there are any questions or concerns that arise at home. 02/02 18:45 Order name: Strep ss 02/02 19:39 Order name: Throat Culture EDOH 02/02 20:37 Order name: Influenza Screen (a \T\ B) cp Administered Medications: No medications were administered Disposition: 02/03 12:43 Co-signature as Attending Physician, Armando Flores MD I agree with the assessment and erika plan of care. Disposition: 02/03/20 21:38 Discharged to Home. Impression: Acute upper respiratory infection, unspecified. - Condition is Stable. - Discharge Instructions: Upper Respiratory Infection, Adult. - Prescriptions for Tessalon Perles 100 mg Oral Capsule - take 2 capsule by ORAL route every 8 hours As needed; 30 capsule. - Medication Reconciliation Form, Thank You Letter, Antibiotic Education, Prescription Opioid Use, Work release form form. - Follow up: Private Physician; When: 2 - 3 days; Reason: Worsening of condition. - Problem is new. - Symptoms are unchanged. Signatures: Dispatcher [employer] [facility] Armando Flores MD MD cha Smirch, Shelby, RN RN Armando Wu PA PA cp Antunez, Elena, RN RN matthew Corrections: (The following items were deleted from the chart) 02/02 21:55 21:38 02/03/2020 21:38 Discharged to Home. Impression: Acute upper respiratory ea infection, unspecified. Condition is Stable. Forms are Medication Reconciliation Form, Thank You Letter, Antibiotic Education, Prescription Opioid Use. Follow up: Private Physician; When: 2 - 3 days; Reason: Worsening of condition. Problem is new. Symptoms are unchanged. cp 02/03 03:20 02/02 20:25 Constitutional: Negative for body aches, chills, fever, poor PO intake, cp cp 02/03 03:20 02/02 20:25 Eyes: Negative for injury, pain, redness, and discharge, cp cp 02/03 03:20 02/02 20:25 ENT: Positive for sore throat, Negative for drainage from ear(s), ear pain, cp difficulty swallowing, difficulty handling secretions, cp 02/03 03:20 02/02 20:25 Respiratory: Positive for cough, Negative for wheezing, cp cp 02/03 03:20 02/02 20:25 Abdomen/GI: Negative for abdominal pain, vomiting, diarrhea, constipation, cp cp 02/03 03:02/02 20:25 Cardiovascular: Negative for chest pain, cp cp 02/03 03:02/02 20:25 Skin: Negative for rash, cp cp 02/03 20:25 Neuro: Negative for altered mental status, headache, cp cp 02/03 03:02/02 20:25 All other systems are negative, cp cp 02/03 15:26 03 20:00 Differential diagnosis: group A strep tonsillitis, influenza, peritonsillar cp abscess pharyngitis, retropharyngeal abcess cp
[2020-02-03 22:33] VITALS: BP 104/78; TEMP 98.6; O2SAT 98
== END 2020-02-03 21:55 | disposition home or self-care (01) ==
LOC: ER 18:30
DX: J06.9 Acute upper respiratory infection, unspecified (principal)
CPT/HCPCS: 87070; 87081; 87804; 99282

== ENCOUNTER 2020-03-16 21:56 | Emergency (ER) | payer BC ==
--- OUTSIDE RECORDS SUMMARY | 2020-03-16 21:58 | XMS REPORT ---
:1995 Author Organization [facility] t Address [address] [place] [address] Care Team Providers Name Role Phone Unavailable Unavailable Unavailable Problems This patient has no known problems. Allergies, Adverse Reactions, Alerts This patient has no known allergies or adverse reactions. Medications This patient has no known medications.
--- NOTE | 2020-03-16 22:44 | RAD REPORT ---
EXAM DESCRIPTION: RAD - Wrist Left 3 View - 03/16/2020 10:39 pm CLINICAL HISTORY: PAIN Pain COMPARISON: Wrist Left 3 View dated 05/10/2019 FINDINGS: No fracture or dislocation seen. No foreign body or other soft tissue abnormality. IMPRESSION: Negative examination.
--- NOTE | 2020-03-16 23:00 | EDPHYS ---
Physician Documentation [facility] Name: Pablito Irwin Age: 25 yrs Sex: Female : 1995 Arrival Date: 03/16/2020 Time: 21:58 Bed 6 Private MD: ED Physician Corinne Rodriguez HPI: 03/16 22:57 This 25 yrs old Black Female presents to ER via Ambulatory with complaints of Wrist ma2 Injury. 22:57 The patient or guardian reports pain. Onset: The symptoms/episode began/occurred ma2 gradually, 3 week(s) ago. Associated signs and symptoms: Pertinent negatives: nausea, vomiting. The patient has experienced similar episodes in the past. 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 - Social history:: Smoking status: Patient denies any tobacco usage or history of. Patient/guardian denies using alcohol, street drugs, The patient lives alone, with family. - Family history:: not pertinent. ROS: 22:57 Constitutional: Negative for fever, chills, and weight loss. ma2 22:57 All other systems are negative. Exam: 22:57 Hand exam: is negative for abrasion, decreased range of motion, edema, Finklestein's, ma2 perfusion abnormalities, pulse abnormalities, puncture, tenderness. 22:57 Skin: Exam negative for abscess, cyanosis, flushing, poor turgor. 22:57 Constitutional: This is a well developed, well nourished patient who is awake, alert, and in no acute distress. Cardiovascular: Regular rate and rhythm with a normal S1 and S2. No gallops, murmurs, or rubs. Normal PMI, no JVD. No pulse deficits. Respiratory: Lungs have equal breath sounds bilaterally, clear to auscultation and percussion. No rales, rhonchi or wheezes noted. No increased work of breathing, no retractions or nasal flaring. Abdomen/GI: Soft, non-tender, with normal bowel sounds. No distension or tympany. No guarding or rebound. No evidence of tenderness throughout. Back: No spinal tenderness. No costovertebral tenderness. Full range of motion. Skin: Warm, dry with normal turgor. Normal color with no rashes, no lesions, and no evidence of cellulitis. MS/ Extremity: Pulses equal, no cyanosis. Neurovascular intact. Full, normal range of motion. Neuro: Awake and alert, GCS 15, oriented to person, place, time, and situation. Cranial nerves II-XII grossly intact. Motor strength 5/5 in all extremities. Sensory grossly intact. Cerebellar exam normal. Normal gait. Vital Signs: 22:10 BP 112 / 76; Pulse 89; Resp 17 S; Temp 98.2(TE); Pulse Ox 100% on R/A; Weight 94.8 kg jd3 (R); Height 5 ft. 11 in. (180.34 cm) (R); Pain 9/10; 22:10 Body Mass Index 29.15 (94.80 kg, 180.34 cm) jd3 MDM: 22:16 Patient medically screened. ma2 22:57 Differential diagnosis: dislocation, closed fracture, contusion, tendonitis. Data ma2 reviewed: vital signs, nurses notes. Counseling: I had a detailed discussion with the patient and/or guardian regarding: the historical points, exam findings, and any diagnostic results supporting the discharge/admit diagnosis, the presence of at least one elevated blood pressure reading (>120/80) during this emergency department visit, the need for outpatient follow up. Response to treatment: There is no appreciated change of the patient's symptoms at this time, she declined pain rx . 03/16 22:17 Order name: Wrist Left (3 View) XRAY ma2 Administered Medications: No medications were administered Disposition: 03/16/20 22:59 Discharged to Home. Impression: Sprain of other part of left wrist and hand. - Condition is Stable. - Discharge Instructions: Wrist Sprain. - Prescriptions for Diclofenac Sodium 75 mg Oral Tablet Sustained Release - take 1 tablet by ORAL route 2 times per day; 30 tablet. - Work release form, Medication Reconciliation Form, Thank You Letter, Antibiotic Education, Prescription Opioid Use form. - Follow up: Private Physician; When: Tomorrow; Reason: If symptoms return, Continuance of care. Signatures: Dispatcher [employer] EDMS Luis May RN RN Antonio Schuler RN RN jd3 Corinne Rodriguez MD MD ma2 Corrections: (The following items were deleted from the chart) 23:11 22:59 03/16/2020 22:59 Discharged to Home. Impression: Sprain of other part of left sg wrist and hand. Condition is Stable. Forms are Medication Reconciliation Form, Thank You Letter, Antibiotic Education, Prescription Opioid Use. Follow up: Private Physician; When: Tomorrow; Reason: If symptoms return, Continuance of care. ma2
--- NOTE | 2020-03-16 23:00 | ER ---
Nurse's Notes [facility] Name: Pablito Irwin Age: 25 yrs Sex: Female : 1995 Arrival Date: 03/16/2020 Time: 21:58 Bed 6 Private MD: Diagnosis: Sprain of other part of left wrist and hand Presentation: 03/16 22:07 Chief complaint: Patient states: "I hurt my left wrist about a couple of weeks ago and jd3 it really is hurting today. I hurt it with lifting a heavy object at work with just that hand. since then it has been sore, but today I used that hand and wrist to get up off the ground and it started to hurt more.". Coronavirus screen: Proceed with normal triage. Ebola Screen: Patient negative for fever greater than or equal to 101.5 degrees Fahrenheit, and additional compatible Ebola Virus Disease symptoms. Initial Sepsis Screen: Does the patient meet any 2 criteria? No. Patient's initial sepsis screen is negative. Does the patient have a suspected source of infection? No. Patient's initial sepsis screen is negative. Risk Assessment: Do you want to hurt yourself or someone else? Patient reports no desire to harm self or others. Onset of symptoms was March 05, 2020. 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 - Social history:: Smoking status: Patient denies any tobacco usage or history of. Patient/guardian denies using alcohol, street drugs, The patient lives alone, with family. - Family history:: not pertinent. Assessment: 22:20 General: Appears in no apparent distress. well groomed, well developed, well nourished, sg Behavior is calm, cooperative, appropriate for age. Pain: Complains of pain in left wrist Quality of pain is described as tender. Neuro: Level of Consciousness is awake, alert, obeys commands, Oriented to person, place, time, Automatic Vulcanizing Lead Operator are equal bilaterally Gait is steady, Speech is normal, Facial symmetry appears normal. Cardiovascular: Capillary refill is brisk in bilateral fingers Patient's skin is warm and dry. Chest pain is denied. Respiratory: Airway is patent Respiratory effort is even, unlabored, Respiratory pattern is regular, symmetrical. GI: No signs and/or symptoms were reported involving the gastrointestinal system. : No signs and/or symptoms were reported regarding the genitourinary system. EENT: No signs and/or symptoms were reported regarding the EENT system. Derm: Skin is pink, warm \\T\\ dry. Musculoskeletal: Circulation, motion, and sensation intact. Range of motion: intact in all extremities, Reports pain in left wrist. 23:10 Reassessment: Patient appears in no apparent distress at this time. pt requesting a sg wrist splint for comfort, notified, V/O received for velcro wrist splint to LUE. Vital Signs: 22:10 BP 112 / 76; Pulse 89; Resp 17 S; Temp 98.2(TE); Pulse Ox 100% on R/A; Weight 94.8 kg jd3 (R); Height 5 ft. 11 in. (180.34 cm) (R); Pain 9/10; 22:10 Body Mass Index 29.15 (94.80 kg, 180.34 cm) jd3 ED Course: 21:58 Patient arrived in ED. cl3 22:02 Corinne Rodriguez MD is Attending Physician. ma2 22:10 Triage completed. jd3 22:11 Arm band placed on. jd3 22:39 Wrist Left (3 View) XRAY In Process Unspecified. EDMS 23:00 Luis May, RN is Primary Nurse. sg 23:10 Patient has correct armband on for positive identification. Pulse ox on. NIBP on. sg 23:10 Velcro wrist splint applied to left wrist. sg 23:10 No provider procedures requiring assistance completed. Patient did not have IV access sg during this emergency room visit. Administered Medications: No medications were administered Outcome: 22:59 Discharge ordered by . ma2 23:10 Discharged to home ambulatory, with family. sg 23:10 Condition: good 23:10 Discharge instructions given to patient, Instructed on discharge instructions, follow up and referral plans. no drinking with medication, no driving heavy equipment, medication usage, safety practices, Demonstrated understanding of instructions, follow-up care, medications, splint care, Prescriptions given X 1. 23:11 Patient left the ED. sg Signatures: Dispatcher [employer] EDLuis Giraldo RN RN sg Davies, Jonathon, RN RN jd3 Corinne Rodriguez MD MD ma2 Pati Streeter3
[2020-03-16 23:16] VITALS: BP 112/76; TEMP 98.2; O2SAT 100
== END 2020-03-16 23:11 | disposition home or self-care (01) ==
LOC: ER 21:56
DX: S63.592A Other specified sprain of left wrist, initial encounter (principal); X50.0XXA Overexertion from strenuous movement or load, initial encounter; Y93.9 Activity, unspecified; Y92.89 Other specified places as the place of occurrence of the external cause; Y99.8 Other external cause status

== ENCOUNTER 2020-05-15 15:32 | Emergency (ER) | payer BC ==
--- OUTSIDE RECORDS SUMMARY | 2020-05-15 15:34 | XMS REPORT | Continuity of Care Document ---
:1995 Author Organization [facility] t Address [address] [place] [address] Care Team Providers Name Role Phone Unavailable Unavailable Unavailable Problems This patient has no known problems. Allergies, Adverse Reactions, Alerts This patient has no known allergies or adverse reactions. Medications This patient has no known medications. Procedures This patient has no known procedures. Results This patient has no known results.
[2020-05-15 16:13] LABS: Absolute Lymphocytes (CBC) 0.5 K/uL (0.7-4.9); RBC Red Blood Cell Count 4.34 M/uL (3.86-4.86)
[2020-05-15 16:15] LABS: Basophils % 0.7 % (0-1.3); Hematocrit 37.5 % (36.0-45.0); MPV 8.3 fL (7.6-11.3)
[2020-05-15 16:26] LABS: ALT/SGPT 66 U/L (12-78); AST/SGOT 56 U/L (15-37); Alkaline Phosphatase 63 U/L (45-117); BUN Blood Urea Nitrogen 4 mg/dL (7-18); Bicarbonate 25 mmol/L (21-32); Bilirubin Direct < 0.1 mg/dL (0-0.2); Bilirubin Total 0.3 mg/dL (0.2-1.0); Glucose Level 92 mg/dL (74-106); Potassium 3.3 mmol/L (3.5-5.1); Protein, Total 7.8 g/dL (6.4-8.2); Sodium Level 138 mmol/L (136-145); Troponin (Emerg Dept Use Only) < 0.02 ng/mL (0.0-0.045)
--- NOTE | 2020-05-15 16:38 | RAD REPORT ---
EXAM DESCRIPTION: RAD - Chest Single View - 05/15/2020 4:19 pm CLINICAL HISTORY: CHEST PAIN COMPARISON: April 2019 TECHNIQUE: AP portable chest image was obtained 05/15/2020 4:19 pm . FINDINGS: No focal lung parenchymal process. Prominent overlying soft tissues accentuate lung markin gs over each base. Heart and vasculature are normal. No measurable pleural effusion and no pneumothor ax. No acute bony abnormality seen. No acute aortic findings suspected. IMPRESSION: No acute cardiopulmonary process. No significant interval change.
[2020-05-15 16:44] LABS: Platelet Estimate ADEQ
[2020-05-15 16:45] LABS: Blood Morphology Comment NOT SEEN (NOT SEEN)
--- NOTE | 2020-05-15 16:54 | EDPHYS ---
Physician Documentation [facility] Name: Pablito Irwin Age: 25 yrs Sex: Female : 1995 Arrival Date: 05/15/2020 Time: 15:38 Bed 8 Private MD: ED Physician Rodriguez Pierce HPI: 05/15 15:50 This 25 yrs old Black Female presents to ER via Ambulatory with complaints of Chest pm1 Pain. 15:50 The patient or guardian reports chest pain that is located primarily in the mid-sternal pm1 area. The pain does not radiate. Associated signs and symptoms: Pertinent positives: cough, Sore throat, diarrhea/soft stool that is her baseline due to dietary fiber intake, Pertinent negatives: abdominal pain, nausea, palpitations, vomiting. The chest pain is described as sharp. Duration: The patient or guardian reports a single episode, that is still ongoing. Modifying factors: the symptoms are aggravated by deep breath. Severity of pain: in the emergency department the pain is actually worse. The patient has not recently seen a physician. Historical: - Allergies: 15:44 No Known Allergies; ll1 - PSHx: 15:44 None; ll1 - Social history:: Smoking status: Patient denies any tobacco usage or history of. Patient uses alcohol, only on a social basis. Patient/guardian denies using street drugs. ROS: 15:50 Eyes: Negative for injury, pain, redness, and discharge. pm1 15:50 Neck: Negative for injury, pain, and swelling. 15:50 Abdomen/GI: Negative for abdominal pain, nausea, vomiting, diarrhea, and constipation, Back: Negative for injury and pain, : Negative for injury, bleeding, discharge, and swelling, MS/Extremity: Negative for injury and deformity, Skin: Negative for injury, rash, and discoloration, Neuro: Negative for headache, weakness, numbness, tingling, and seizure. 15:50 Constitutional: Positive for chills, Negative for fever, poor PO intake. 15:50 ENT: Positive for sore throat, Negative for drainage from ear(s), ear pain, difficulty swallowing, difficulty handling secretions, hoarseness. 15:50 Cardiovascular: Positive for chest pain, Negative for edema, palpitations. 15:50 Respiratory: Positive for cough, Negative for shortness of breath, sputum production, wheezing. Exam: 16:03 Constitutional: This is a well developed, well nourished patient who is awake, alert, pm1 and in no acute distress. Head/Face: Normocephalic, atraumatic. Eyes: Pupils equal round and reactive to light, extra-ocular motions intact. Lids and lashes normal. Conjunctiva and sclera are non-icteric and not injected. Cornea within normal limits. Periorbital areas with no swelling, redness, or edema. 16:03 Neck: Trachea midline, no thyromegaly or masses palpated, and no cervical lymphadenopathy. Supple, full range of motion without nuchal rigidity, or vertebral point tenderness. No Meningismus. 16:03 Cardiovascular: Regular rate and rhythm with a normal S1 and S2. No gallops, murmurs, or rubs. Normal PMI, no JVD. No pulse deficits. Respiratory: Lungs have equal breath sounds bilaterally, clear to auscultation and percussion. No rales, rhonchi or wheezes noted. No increased work of breathing, no retractions or nasal flaring. Abdomen/GI: Soft, non-tender. No guarding or rebound. No evidence of tenderness throughout. Back: No spinal tenderness. No costovertebral tenderness. Full range of motion. Skin: Warm, dry with normal turgor. Normal color with no rashes, no lesions, and no evidence of cellulitis. MS/ Extremity: Pulses equal, no cyanosis. Neurovascular intact. Full, normal range of motion. 16:03 ENT: Mouth: is normal, no abscess, no drooling, no laceration, (-) trismus Posterior pharynx: Tonsils: bilaterally enlarged, with erythema, with exudate, no ulcerations, peritonsillar mass, is not appreciated, pooling of secretions, is not appreciated. 16:03 Chest/axilla: Inspection: normal, Palpation: tenderness, that is mild, of the mid-sternal area, that totally reproduces the patient's complaints. 16:03 Neuro: Exam negative for acute changes, Orientation: is normal, Mentation: is normal, Motor: is normal, moves all fours, Sensation: is normal, no obvious gross deficits. Vital Signs: 15:42 BP 134 / 80; Pulse 90; Resp 18; Temp 98.7; Pulse Ox 99% ; Pain 9/10; ll1 MDM: 15:40 Patient medically screened. pm1 16:40 Data reviewed: vital signs. Data interpreted: Pulse oximetry: on room air is 99 %. pm1 Interpretation: normal. 16:51 ED course: Asked the patient if she would like a COVID19 test. Patient refused. pm1 16:52 Counseling: I had a detailed discussion with the patient and/or guardian regarding: the pm1 historical points, exam findings, and any diagnostic results supporting the discharge/admit diagnosis, lab results, radiology results, the need for outpatient follow up, to return to the emergency department if symptoms worsen or persist or if there are any questions or concerns that arise at home. 05/15 15:48 Order name: Strep; Complete Time: 16:27 pm05/15 15:48 Order name: Flu; Complete Time: 16:27 pm05/15 15:48 Order name: Basic Metabolic Panel; Complete Time: 16:27 pm05/15 15:48 Order name: CBC with Diff; Complete Time: 16:47 pm05/15 15:48 Order name: LFT's; Complete Time: 16:27 pm05/15 15:48 Order name: Troponin (emerg Dept Use Only); Complete Time: 16:27 pm05/15 15:48 Order name: XRAY Chest (1 view); Complete Time: 16:40 pm1 05/15 15:48 Order name: EKG; Complete Time: 15:49 pm1 05/15 15:48 Order name: Cardiac monitoring; Complete Time: 16:03 pm05/15 15:48 Order name: EKG - Nurse/Tech; Complete Time: 16:12 pm05/15 15:48 Order name: IV Saline Lock; Complete Time: 16:12 pm05/15 15:48 Order name: Labs collected and sent; Complete Time: 16:12 pm05/15 16:17 Order name: Manual Differential; Complete Time: 16:47 EDMS 05/15 16:28 Order name: Throat Culture EDMS 05/15 15:48 Order name: O2 Per Protocol; Complete Time: 16:12 pm05/15 15:48 Order name: O2 Sat Monitoring; Complete Time: 16:12 pm1 EC:14 Rate is 91 beats/min. Rhythm is regular, Normal Sinus Rhythm with No ectopy. No Q pm1 waves. T waves are Normal. No ST changes noted. Clinical impression: Normal ECG. Administered Medications: No medications were administered Disposition: 05/16 04:29 Co-signature as Attending Physician, Rodriguez Pierce MD I agree with the assessment and kdr plan of care. Disposition: 05/15/20 16:54 Discharged to Home. Impression: Chest pain, unspecified, Acute pharyngitis. - Condition is Stable. - Discharge Instructions: Nonspecific Chest Pain, Pharyngitis. - Medication Reconciliation Form, Thank You Letter, Antibiotic Education, Prescription Opioid Use form. - Follow up: Emergency Department; When: As needed; Reason: Worsening of condition. Follow up: Private Physician; When: 2 - 3 days; Reason: Recheck today's complaints, Continuance of care, Re-evaluation by your physician. - Problem is new. - Symptoms have improved. Signatures: Dispatcher [employer] EDMS Rodriguez Pierce MD MD [facility] [address] Tiara Jesus RN RN ss Seun Amin, ARACELI MERCHANDISE FOR RES[employer] PURCHASING AGENT pm1 John Streeter RN RN ll1 Corrections: (The following items were deleted from the chart) 05/15 17:20 16:54 05/15/2020 16:54 Discharged to Home. Impression: Chest pain, unspecified; Acute ss pharyngitis. Condition is Stable. Forms are Medication Reconciliation Form, Thank You Letter, Antibiotic Education, Prescription Opioid Use. Follow up: Emergency Department; When: As needed; Reason: Worsening of condition. Follow up: Private Physician; When: 2 - 3 days; Reason: Recheck today's complaints, Continuance of care, Re-evaluation by your physician. Problem is new. Symptoms have improved. pm1
--- NOTE | 2020-05-15 16:54 | ER ---
Nurse's Notes [facility] Name: Pablito Irwin Age: 25 yrs Sex: Female : 1995 Arrival Date: 05/15/2020 Time: 15:38 Bed 8 Private MD: Diagnosis: Chest pain, unspecified;Acute pharyngitis Presentation: 05/15 15:42 Chief complaint: Patient states: Chest pain for 2 days. Throat is sore and voice sounds ll1 scratchy. Diarrhea yesterday, cough started today. Denies fever. Coronavirus screen: Proceed with normal triage. Patient reports a cough. Patient denies shortness of breath or difficulty breathing. Patient denies measured and/or subjective temperature greater than 100.4F prior to today's visit. Patient denies travel on a cruise ship or to a country the [facility] currently lists as an affected area. Patient denies contact with known and/or suspected case of COVID-19. Ebola Screen: Patient denies travel to an Ebola-affected area in the 21 days before illness onset. Initial Sepsis Screen: Does the patient meet any 2 criteria? No. Patient's initial sepsis screen is negative. Risk Assessment: Do you want to hurt yourself or someone else? Patient reports no desire to harm self or others. Onset of symptoms was May 14, 2020. 15:42 Method Of Arrival: Ambulatory ll1 15:42 Acuity: ADONIS 3 ll1 Historical: - Allergies: 15:44 No Known Allergies; ll1 - PSHx: 15:44 None; ll1 - Social history:: Smoking status: Patient denies any tobacco usage or history of. Patient uses alcohol, only on a social basis. Patient/guardian denies using street drugs. Screenin:00 Abuse screen: Denies threats or abuse. Nutritional screening: No deficits noted. em Tuberculosis screening: No symptoms or risk factors identified. Fall Risk None identified. Assessment: 16:00 General: Appears in no apparent distress. comfortable, Behavior is calm, cooperative, em appropriate for age. Pain: Complains of pain in mid-sternal area Pain does not radiate. Pain currently is 9 out of 10 on a pain scale. Pain began 1 day ago. Neuro: Level of Consciousness is awake, alert, obeys commands, Oriented to person, place, time, situation, Appropriate for age. Cardiovascular: Reports chest pain, Capillary refill < 3 seconds Patient's skin is warm and dry. Respiratory: Reports cough that is productive, Airway is patent Respiratory effort is even, unlabored, Respiratory pattern is regular, symmetrical. GI: Abdomen is flat. Derm: Skin is intact, is healthy with good turgor, Skin is pink, warm \T\ dry. Musculoskeletal: Capillary refill < 3 seconds, Range of motion: intact in all extremities. Vital Signs: 15:42 BP 134 / 80; Pulse 90; Resp 18; Temp 98.7; Pulse Ox 99% ; Pain 9/10; ll1 ED Course: 15:38 Patient arrived in ED. fj1 15:39 Seun Amin NP is PHCP. pm1 15:39 Rodriguez Pierce MD is Attending Physician. pm1 15:44 Triage completed. ll1 15:45 Arm band placed on Patient placed in an exam room, on a stretcher. ll1 15:58 Initial lab(s) drawn, by ga, sent to lab. EKG done, by ED staff, reviewed by Seun Amin BRIM WELT SEWING MACHINE OPERATOR X-ray(s) taken. Inserted saline lock: 20 gauge in right antecubital area, using aseptic technique. Blood collected. Patient maintains SpO2 saturation greater than 95% on room air. 15:58 Flu and/or RSV swab sent to lab. Strep swab sent to lab. jp3 16:01 Jerad Alicia, RN is Primary Nurse. 16:11 Bed in low position. Call light in reach. Side rails up X 1. Warm blanket given. Verbal jp3 reassurance given. Pulse ox on. NIBP on. 16:19 XRAY Chest (1 view) In Process Unspecified. EDUT 17:19 No provider procedures requiring assistance completed. IV discontinued, intact, ss bleeding controlled, No redness/swelling at site. Pressure dressing applied. Administered Medications: No medications were administered Outcome: 16:54 Discharge ordered by . pm1 17:19 Discharged to home ambulatory. 17:19 Condition: good 17:19 Discharge instructions given to patient, Instructed on discharge instructions, follow up and referral plans. Demonstrated understanding of instructions, follow-up care, medications. 17:20 Patient left the ED. ss Signatures: Dispatcher [employer] EDUT Jerad Alicia, RN RN em Tiara Jesus RN RN ss Seun Amin, BRIM WELT SEWING MACHINE OPERATOR BRIM WELT SEWING MACHINE OPERATOR pm1 Julian Heath jp3 Ariel Winkler fj1 John Streeter, RN RN ll1
[2020-05-15 17:28] VITALS: BP 134/80; TEMP 98.7; O2SAT 99
--- NOTE | 2020-05-16 06:22 | EKG ---
Test Date: 2020-05-15 Test Time: 16:08:04 Utility Bagger: FILOMENA MEASUREMENT RESULTS: Intervals: Rate: 91 IN: 150 QRSD: 78 QT: 366 QTc: 450 [facility]: P: 46 IN: 150 QRS: 68 T: 28 INTERPRETIVE STATEMENTS: Normal sinus rhythm Normal ECG Compared to ECG 05/18/2019 17:47:12 Sinus tachycardia no longer present Electronically Signed On 05-16-20 06:20:22 CDT by Rivera Chino
== END 2020-05-15 17:20 | disposition home or self-care (01) ==
LOC: ER 15:32
DX: J02.9 Acute pharyngitis, unspecified (principal); R05 Cough
CPT/HCPCS: 36415; 71045; 80048; 80076; 84484; 85025; 87070; 87081; 87804; 93005; 99284

== ENCOUNTER 2020-05-23 13:47 | Emergency (ER) | payer BC ==
--- OUTSIDE RECORDS SUMMARY | 2020-05-23 14:00 | XMS REPORT | Continuity of Care Document ---
:1995 Author Organization [facility] t Address [address] [place] [address] Care Team Providers Name Role Phone Unavailable Unavailable Unavailable Problems This patient has no known problems. Allergies, Adverse Reactions, Alerts This patient has no known allergies or adverse reactions. Medications This patient has no known medications. Procedures This patient has no known procedures. Results This patient has no known results.
--- NOTE | 2020-05-23 17:12 | EDPHYS ---
Physician Documentation [facility] Name: Pablito Irwin Age: 25 yrs Sex: Female : 1995 Arrival Date: 05/23/2020 Time: 13:49 Bed 13 Private MD: ED Physician Slade Augustine HPI: 05/23 17:11 This 25 yrs old Black Female presents to ER via Ambulatory with complaints of Sore pm1 Throat, Fever. 17:11 The patient presents with sore throat. The patient describes throat pain as scratchy. pm1 17:11 Onset: The symptoms/episode began/occurred 1 week(s) ago. Severity of symptoms: in the pm1 emergency department the symptoms are actually worse. Modifying factors: the symptoms are aggravated by foods, Food makes her nauseated. No voimting but makes her have poor appetite, The patient has had contact with sick daughter, she tested negative for covid yesterday. Associated signs and symptoms: Pertinent positives: chills, cough, fever, nausea, Pertinent negatives chest pain, dysphagia, earache, shortness of breath, vomiting. The patient has not experienced similar symptoms in the past. The patient has not recently seen a physician. 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 - Social history:: Smoking status: Patient denies any tobacco usage or history of. ROS: 17:11 Eyes: Negative for injury, pain, redness, and discharge. pm1 17:11 Neck: Negative for injury, pain, and swelling, Cardiovascular: Negative for chest pain, palpitations, and edema. 17:11 Back: Negative for injury and pain, : Negative for injury, bleeding, discharge, and swelling, MS/Extremity: Negative for injury and deformity, Skin: Negative for injury, rash, and discoloration, Neuro: Negative for headache, weakness, numbness, tingling, and seizure. 17:11 Constitutional: Positive for body aches, chills, fever. 17:11 Constitutional: Negative for poor PO intake. 17:11 ENT: Positive for rhinorrhea, sore throat, Negative for drainage from ear(s), ear pain, difficulty swallowing, difficulty handling secretions, hoarseness. 17:11 Respiratory: Positive for cough, Negative for shortness of breath, sputum production, wheezing. 17:11 Abdomen/GI: Positive for nausea, Negative for vomiting, diarrhea, constipation. Exam: 17:11 Constitutional: This is a well developed, well nourished patient who is awake, alert, pm1 and in no acute distress. Head/Face: Normocephalic, atraumatic. Eyes: Pupils equal round and reactive to light, extra-ocular motions intact. Lids and lashes normal. Conjunctiva and sclera are non-icteric and not injected. Cornea within normal limits. Periorbital areas with no swelling, redness, or edema. 17:11 Neck: Trachea midline, no thyromegaly or masses palpated, and no cervical lymphadenopathy. Supple, full range of motion without nuchal rigidity, or vertebral point tenderness. No Meningismus. Chest/axilla: Normal chest wall appearance and motion. Nontender with no deformity. No lesions are appreciated. Cardiovascular: Regular rate and rhythm with a normal S1 and S2. No gallops, murmurs, or rubs. Normal PMI, no JVD. No pulse deficits. Respiratory: Lungs have equal breath sounds bilaterally, clear to auscultation and percussion. No rales, rhonchi or wheezes noted. No increased work of breathing, no retractions or nasal flaring. Abdomen/GI: Soft, non-tender, with normal bowel sounds. No distension or tympany. No guarding or rebound. No evidence of tenderness throughout. Back: No spinal tenderness. No costovertebral tenderness. Full range of motion. Skin: Warm, dry with normal turgor. Normal color with no rashes, no lesions, and no evidence of cellulitis. MS/ Extremity: Pulses equal, no cyanosis. Neurovascular intact. Full, normal range of motion. 17:11 ENT: External ear(s): are unremarkable, Ear canal(s): are normal, TM's: are normal, Posterior pharynx: Tonsils: bilaterally enlarged, with erythema, no exudate, no ulcerations, erythema, that is mild, peritonsillar mass, is not appreciated. 17:11 Neuro: Exam negative for acute changes, Orientation: is normal, Mentation: is normal, Motor: is normal, moves all fours, Sensation: is normal, no obvious gross deficits. Vital Signs: 14:11 BP 103 / 74; Pulse 74; Resp 19; Temp 98.8; Pulse Ox 97% ; Weight 99.79 kg; Height 5 ft. jl7 11 in. (180.34 cm); Pain 9/10; 17:40 BP 108 / 64; Pulse 72; Resp 18; Temp 98.4(O); Pulse Ox 99% on R/A; Pain 0/10; ls4 14:11 Body Mass Index 30.68 (99.79 kg, 180.34 cm) jl7 17:40 FLACC ls4 MDM: 14:35 Patient medically screened. pm1 17:11 Data reviewed: vital signs. Data interpreted: Pulse oximetry: on room air is 97 %. pm1 Interpretation: normal. Counseling: I had a detailed discussion with the patient and/or guardian regarding: the historical points, exam findings, and any diagnostic results supporting the discharge/admit diagnosis, lab results, the need for outpatient follow up, to return to the emergency department if symptoms worsen or persist or if there are any questions or concerns that arise at home. 05/23 14:36 Order name: COVID-19 pm1 05/23 14:36 Order name: Flu; Complete Time: 17:00 pm1 05/23 14:36 Order name: Strep; Complete Time: 17:00 pm1 05/23 14:36 Order name: [facility] 05/23 17:01 Order name: Throat Culture [facility] 05/23 14:36 Order name: Droplet/Contact Precautions; Complete Time: 14:50 pm1 05/23 14:36 Order name: Labs collected and sent; Complete Time: 14:50 pm1 05/23 14:36 Order name: O2 Per Protocol; Complete Time: 14:50 pm1 Administered Medications: No medications were administered Disposition: 18:19 Co-signature as Attending Physician, Slade Augustine MD. rn Disposition: 05/23/20 17:11 Discharged to Home. Impression: Acute upper respiratory infection, unspecified. - Condition is Stable. - Discharge Instructions: Antibiotic Resistance, Upper Respiratory Infection, Adult, COVID-19. - Prescriptions for Zofran ODT 4 mg Oral tablet,disintegrating - place 1 tablet by TRANSLINGUAL route every 8 hours As needed; 12 tablet. Guaifenesin AC 10- 100 mg/5 mL Oral Liquid - take 10 milliliter by ORAL route every 4 hours As needed; 240 milliliter. - Work release form, Medication Reconciliation Form, Thank You Letter, Antibiotic Education, Prescription Opioid Use form. - Follow up: Emergency Department; When: As needed; Reason: Worsening of condition. Follow up: Private Physician; When: 2 - 3 days; Reason: Recheck today's complaints, Continuance of care, Re-evaluation by your physician. - Problem is new. - Symptoms have improved. Signatures: Dispatcher [employer] EDMS Slade Augustine MD MD rn Seun Amin NP LIP CUTTER pm1 Juan Santacruz RN RN jl7 Mayi Fabian RN RN ls4 Corrections: (The following items were deleted from the chart) 17:48 17:11 05/23/2020 17:11 Discharged to Home. Impression: Acute upper respiratory ls4 infection, unspecified. Condition is Stable. Forms are Medication Reconciliation Form, Thank You Letter, Antibiotic Education, Prescription Opioid Use. Follow up: Emergency Department; When: As needed; Reason: Worsening of condition. Follow up: Private Physician; When: 2 - 3 days; Reason: Recheck today's complaints, Continuance of care, Re-evaluation by your physician. Problem is new. Symptoms have improved. pm1
--- NOTE | 2020-05-23 17:12 | ER ---
Nurse's Notes [facility] Name: Pablito Irwin Age: 25 yrs Sex: Female : 1995 Arrival Date: 05/23/2020 Time: 13:49 Bed 13 Private MD: Diagnosis: Acute upper respiratory infection, unspecified Presentation: 05/23 14:11 Chief complaint: Patient states: Sore throat x 1 week, cough, body aches and chills, jl7 loss of taste and smell x 2 days, temp of 101 yesterday. Coronavirus screen: Surgical mask placed on patient. Patient moved to private room, placed in contact and droplet isolation with eye protection until further assessment. Patient reports a cough. Patient denies shortness of breath or difficulty breathing. Patient reports a measured and/or subjective temperature greater than 100.4F. Patient denies travel on a cruise ship or to a country the [facility] [place] 2[place] currently lists as an affected area. Patient denies contact with known and/or suspected case of COVID-19. Ebola Screen: No symptoms or risks identified at this time. Initial Sepsis Screen: Does the patient meet any 2 criteria? No. Patient's initial sepsis screen is negative. Does the patient have a suspected source of infection? No. Patient's initial sepsis screen is negative. Risk Assessment: Do you want to hurt yourself or someone else? Patient reports no desire to harm self or others. Onset of symptoms was May 15, 2020. Care prior to arrival: None. 14:11 Method Of Arrival: Ambulatory [facility] 14:11 Acuity: ADONIS 3 jl7 Triage Assessment: 14:14 General: Appears in no apparent distress. uncomfortable, Behavior is calm, cooperative, jl7 appropriate for age. Pain: Complains of pain in body aches Pain currently is 9 out of 10 on a pain scale. EENT: Reports pain when swallowing. UNITIZER: 14:14 LMP 05/09/2020 jl7 Historical: - Allergies: 14:14 No Known Allergies; jl7 - Home Meds: 14:14 None [Active]; jl7 - PMHx: 14:14 None; jl7 - PSHx: 14:14 None; jl7 - Immunization history:: Adult Immunizations up to date. - Social history:: Smoking status: Patient denies any tobacco usage or history of. Screenin:20 Abuse screen: Denies threats or abuse. Denies injuries from another. Nutritional ls4 screening: No deficits noted. Tuberculosis screening: No symptoms or risk factors identified. Fall Risk Total Smith Fall Scale indicates. Assessment: 14:23 General: Appears in no apparent distress. comfortable. Respiratory: Airway is patent ls4 Respiratory effort is even, unlabored, Respiratory pattern is regular, Breath sounds are clear bilaterally. EENT:. 14:23 EENT: Throat is clear. ls4 15:30 Reassessment: Patient appears in no apparent distress at this time. Patient and/or ls4 family updated on plan of care and expected duration. Pain level reassessed. Patient is alert, oriented x 3, equal unlabored respirations, skin warm/dry/pink. 16:30 Reassessment: Patient appears in no apparent distress at this time. Patient and/or ls4 family updated on plan of care and expected duration. Pain level reassessed. Patient is alert, oriented x 3, equal unlabored respirations, skin warm/dry/pink. 17:30 Reassessment: Patient appears in no apparent distress at this time. Patient and/or ls4 family updated on plan of care and expected duration. Pain level reassessed. Patient is alert, oriented x 3, equal unlabored respirations, skin warm/dry/pink. Vital Signs: 14:11 BP 103 / 74; Pulse 74; Resp 19; Temp 98.8; Pulse Ox 97% ; Weight 99.79 kg; Height 5 ft. jl7 11 in. (180.34 cm); Pain 9/10; 17:40 BP 108 / 64; Pulse 72; Resp 18; Temp 98.4(O); Pulse Ox 99% on R/A; Pain 0/10; ls4 14:11 Body Mass Index 30.68 (99.79 kg, 180.34 cm) jl7 [facility] Course: 13:49 Patient arrived in ED. as 14:14 Triage completed. jl7 14:14 Arm band placed on. jl7 14:20 Seun Amin NP is PHCP. pm1 14:20 Slade Augustine MD is Attending Physician. pm1 14:20 Mayi Fabian, GAY is Primary Nurse. ls4 14:20 No apparent distress. ls4 14:20 Patient has correct armband on for positive identification. Bed in low position. Call ls4 light in reach. Side rails up X 1. marketing support coordinator on. Pulse ox on. NIBP on. Droplet isolation initiated. 14:20 No provider procedures requiring assistance completed. ls4 14:50 COVID-19 Sent. ls4 17:40 Patient did not have IV access during this emergency room visit. ls4 17:45 Throat Culture Sent. ls4 Administered Medications: No medications were administered Outcome: 17:11 Discharge ordered by MD. pm1 17:40 Discharged to home ambulatory. ls4 17:40 Condition: good 17:40 Discharge instructions given to patient, Instructed on discharge instructions, follow up and referral plans. medication usage, Demonstrated understanding of instructions, follow-up care, medications. 17:42 Patient left the ED. ls4 Addendum: 05/25/2020 19:35 Addendum: Other Dr. Pierce notified patient of COVID positive results by phone. l p1 Signatures: Radha Casey Laura, RN RN lp1 Seun Amin NP FIRER BOILER pm1 Juan Santacruz RN RN jl7 Mayi Fabian RN RN ls4 Corrections: (The following items were deleted from the chart) 05/23 17:49 17:48 Patient left the ED. ls4 ls4
[2020-05-23 17:54] VITALS: BP 103/74; TEMP 98.8; O2SAT 97
== END 2020-05-23 17:48 | disposition home or self-care (01) ==
LOC: ER 13:47
DX: U07.1 COVID-19 (principal); J06.9 Acute upper respiratory infection, unspecified
CPT/HCPCS: 87070; 87081; 87804 ×2; 99285; U0002

== ENCOUNTER 2021-04-04 15:30 | Emergency (ER) | payer BC ==
--- OUTSIDE RECORDS SUMMARY | 2021-04-04 15:32 | XMS REPORT | Continuity of Care Document ---
:1995 Author Organization [facility] t Address [address] [place] [address] Care Team Providers Name Role Phone Shabbir NORTON Attending Clinician Lab, Fam Pob I Attending Clinician Unavailable Problems This patient has no known problems. Allergies, Adverse Reactions, Alerts This patient has no known allergies or adverse reactions. Medications This patient has no known medications. Procedures This patient has no known procedures. Encounters Start End Encounter Admission Attending Care Care Encounter Source Date/Time Date/Time Type Type Clinicians Facility Department ID 2020-06-08 2020-06-08 Telephone DIVINA Shea [id number] 00:00:00 00:00:00 Savitamiroslava MUNOZY [id number] [facility] [id number] 2020-06-06 2020-06-06 Laboratory Lab, [facility] [id number] 09:55:39 10:15:39 Only Fam Pob I Health [id number] [place] [id number] Professdominique [id number] [address] Results This patient has no known results.
[2021-04-04 17:01] LABS: Urine Blood Negative (Negative); Urine Glucose Negative (Negative); Urine Protein Negative (Negative)
[2021-04-04] MEDS ORDERED: NA CHLORIDE 0.9% 1,000 ML ONE (17:06)
[2021-04-04] MEDS ORDERED: MORPHINE 4 MG/ML SYR ONE (17:06)
[2021-04-04] MEDS ORDERED: ONDANSETRON 4 MG/2 ML VIAL ONE (17:06)
[2021-04-04 17:19] LABS: Urine Bacteria <20 /HPF (<20); Urine RBC <5 /HPF (NONE SEEN)
[2021-04-04 17:23] LABS: ALT/SGPT 23 U/L (12-78); AST/SGOT 14 U/L (15-37); Albumin 3.6 g/dL (3.4-5.0); Alkaline Phosphatase 67 U/L (45-117); BUN Blood Urea Nitrogen 8 mg/dL (7-18); Bicarbonate 28 mmol/L (21-32); Bilirubin Direct 0.1 mg/dL (0-0.2); Bilirubin Total 0.4 mg/dL (0.2-1.0); Glucose Level 77 mg/dL (74-106); Lipase 108 U/L (73-393); Potassium 3.9 mmol/L (3.5-5.1); Protein, Total 7.4 g/dL (6.4-8.2); Sodium Level 140 mmol/L (136-145)
[2021-04-04 17:28] LABS: Absolute Lymphocytes (CBC) 2.2 K/uL (0.7-4.9); Basophils % 0.6 % (0-1.3); Hematocrit 37.9 % (36.0-45.0); Lymphocytes % 29.5 % (15.3-44.8)
--- NOTE | 2021-04-04 17:47 | RAD REPORT ---
EXAM DESCRIPTION: CTAbdomen Pelvis W Contrast - 04/04/2021 5:36 pm CLINICAL HISTORY: Abdominal pain. FLANK PAIN COMPARISON: No comparisons TECHNIQUE: Biphasic CT imaging of the abdomen and pelvis was performed with 100 ml non-ionic IV cont rast. All CT scans are performed using dose optimization technique as appropriate and may include automated exposure control or mA/KV adjustment according to patient size. FINDINGS: The lung bases are clear. The liver, spleen, pancreas, adrenal glands and kidneys are within normal limits. No bowel obstruction, free air, free fluid or abscess. Moderate retained stool throughout the colon. The appendix is normal. No evidence of significant lymphadenopathy. Trace pelvic free fluid. No suspicious bony findings. IMPRESSION: No acute intra-abdominal or pelvic finding.
--- NOTE | 2021-04-04 18:14 | ER ---
Nurse's Notes [facility] Name: Pablito Irwin Age: 26 yrs Sex: Female : 1995 Arrival Date: 04/04/2021 Time: 15:35 Bed Treatment Private MD: Diagnosis: Low back pain;Muscle spasm of back Presentation: 04/04 16:01 Chief complaint: Patient states: "I have been having been vomiting, and back/stomach jd3 pain. and blood in my urine for about a week now.". Coronavirus screen: At this time, the client does not indicate any symptoms associated with coronavirus-19. Ebola Screen: Patient negative for fever greater than or equal to 101.5 degrees Fahrenheit, and additional compatible Ebola Virus Disease symptoms. Initial Sepsis Screen: Does the patient meet any 2 criteria? No. Patient's initial sepsis screen is negative. Does the patient have a suspected source of infection? No. Patient's initial sepsis screen is negative. Risk Assessment: Do you want to hurt yourself or someone else? Patient reports no desire to harm self or others. Onset of symptoms was March 28, 2021. 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 - Social history:: Smoking status: Patient denies any tobacco usage or history of. Screenin:18 Abuse screen: Denies threats or abuse. Denies injuries from another. Nutritional ca1 screening: No deficits noted. Tuberculosis screening: No symptoms or risk factors identified. Fall Risk None identified. Assessment: 16:18 General: Appears in no apparent distress. comfortable, Behavior is calm, cooperative, ca1 appropriate for age. Pain: Complains of pain in left lower quadrant Pain radiates to left low back Pain currently is 9 out of 10 on a pain scale. Pain began a week ago. Neuro: Level of Consciousness is awake, alert, obeys commands, Oriented to person, place, time, situation. Cardiovascular: Heart tones S1 S2 present Capillary refill < 3 seconds Patient's skin is warm and dry. GI: Abdomen is round non-distended, Bowel sounds present X 4 quads. Abd is soft X 4 quads Abdomen is tender to palpation in left lower quadrant Reports vomiting. : Reports bloody urine x 1 week. EENT: No signs and/or symptoms were reported regarding the EENT system. Derm: Skin is intact, is healthy with good turgor, Skin is pink, warm \\T\\ dry. Musculoskeletal: Circulation, motion, and sensation intact. Capillary refill < 3 seconds. 17:18 Reassessment: Patient appears in no apparent distress at this time. Patient and/or ca1 family updated on plan of care and expected duration. Pain level reassessed. Patient is alert, oriented x 3, equal unlabored respirations, skin warm/dry/pink. 18:23 Reassessment: Patient appears in no apparent distress at this time. Patient is alert, ca1 oriented x 3, equal unlabored respirations, skin warm/dry/pink. Patient states feeling better. Vital Signs: 16:03 BP 115 / 79; Pulse 61; Resp 16 S; Temp 97.5(TE); Pulse Ox 99% on R/A; Weight 90.72 kg jd3 (R); Height 5 ft. 11 in. (180.34 cm) (R); Pain 9/10; 17:18 BP 110 / 69; Pulse 65; Resp 16 S; Pulse Ox 100% on R/A; ca1 18:23 BP 119 / 76; Pulse 61; Resp 16 S; Pulse Ox 100% on R/A; ca1 16:03 Body Mass Index 27.89 (90.72 kg, 180.34 cm) jd3 ED Course: 15:35 Patient arrived in ED. am2 16:03 Triage completed. jd3 16:04 Arm band placed on. jd3 16:17 Sugar Juarez, GAY is Primary Nurse. ca1 16:18 Patient has correct armband on for positive identification. Bed in low position. Call ca1 light in reach. Side rails up X 1. Pulse ox on. NIBP on. Warm blanket given. 16:26 Seun Amin NP is PHCP. pm1 16:26 Slade Augustine MD is Attending Physician. pm1 16:59 No provider procedures requiring assistance completed. Initial lab(s) drawn, by me, ca1 sent to lab. Inserted saline lock: 20 gauge in left antecubital area, using aseptic technique. Blood collected. 17:36 CT Abd/Pelvis - IV Contrast Only In Process Unspecified. EDMS 18:23 IV discontinued, intact, bleeding controlled, No redness/swelling at site. Pressure ca1 dressing applied. Administered Medications: 16:53 Drug: NS 0.9% 1000 ml Route: IV; Rate: 1000 ml; Site: right antecubital; ca1 17:54 Follow up: Response: No adverse reaction; IV Status: Completed infusion; IV Intake: ca1 1000ml 16:55 Drug: Zofran (Ondansetron) 4 mg Route: IVP; Site: left antecubital; ca1 17:55 Follow up: Response: No adverse reaction; Nausea is decreased ca1 16:57 Drug: morphine 4 mg {Note: rass 0.} Route: IVP; Site: left antecubital; ca1 17:54 Follow up: Response: No adverse reaction; Pain is decreased; RASS: Alert and Calm (0) ca1 Intake: 17:54 IV: 1000ml; Total: 1000ml. ca1 Outcome: 18:13 Discharge ordered by MD. pm1 18:23 Discharged to home ambulatory, with family. ca1 18:23 Condition: stable 18:23 Discharge instructions given to patient, Instructed on discharge instructions, follow up and referral plans. no drinking with medication, no driving heavy equipment, medication usage, Demonstrated understanding of instructions, follow-up care, medications, Prescriptions given X 2. 18:24 Patient left the ED. ca1 Signatures: Dispatcher [employer] EDMS Seun Amin, ARACELI CREATIVE/ART DIRECTOR pm1 Keena Valadez am2 Antonio Laughlin RN RN jd3 Sugar Juarez RN RN ca1
--- NOTE | 2021-04-04 18:14 | EDPHYS ---
Physician Documentation [facility] Name: Pablito Irwin Age: 26 yrs Sex: Female : 1995 Arrival Date: 04/04/2021 Time: 15:35 Bed Treatment Private MD: ED Physician Slade Augustine HPI: 04/04 16:30 This 26 yrs old Black Female presents to ER via Ambulatory with complaints of Abdominal pm1 Pain, Back Pain, blood in urine, Vomiting. 16:30 The patient presents with abdominal pain in the left lower quadrant, Left flank pain. pm1 Onset: The symptoms/episode began/occurred 2 week(s) ago. Associated signs and symptoms: Pertinent positives: nausea and vomiting, hematuria, Pertinent negatives: chest pain, diarrhea, fever, shortness of breath. The symptoms are described as achy, constant. Modifying factors: The symptoms are alleviated by nothing, the symptoms are aggravated by nothing. Severity of pain: in the emergency department the pain is actually worse. The patient has not experienced similar symptoms in the past. The patient has not recently seen a physician. 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 - Social history:: Smoking status: Patient denies any tobacco usage or history of. ROS: 16:30 Constitutional: Negative for fever, chills, and weight loss, Neck: Negative for injury, pm1 pain, and swelling, Cardiovascular: Negative for chest pain, palpitations, and edema, Respiratory: Negative for shortness of breath, cough, wheezing, and pleuritic chest pain. 16:30 MS/Extremity: Negative for injury and deformity, Skin: Negative for injury, rash, and discoloration, Neuro: Negative for headache, weakness, numbness, tingling, and seizure. 16:30 Abdomen/GI: Positive for abdominal pain, nausea and vomiting, of the left lower quadrant, Negative for diarrhea, constipation. 16:30 Back: Positive for flank pain, on the left. 16:30 : Positive for hematuria, Negative for urinary frequency, burning with urination. Exam: 16:30 Constitutional: This is a well developed, well nourished patient who is awake, alert, pm1 and in no acute distress. Head/Face: Normocephalic, atraumatic. Eyes: Pupils equal round and reactive to light, extra-ocular motions intact. Lids and lashes normal. Conjunctiva and sclera are non-icteric and not injected. Cornea within normal limits. Periorbital areas with no swelling, redness, or edema. ENT: Nares patent. No nasal discharge, no septal abnormalities noted. Tympanic membranes are normal and external auditory canals are clear. Oropharynx with no redness, swelling, or masses, exudates, or evidence of obstruction, uvula midline. Mucous membranes moist. Neck: Trachea midline, no thyromegaly or masses palpated, and no cervical lymphadenopathy. Supple, full range of motion without nuchal rigidity, or vertebral point tenderness. No Meningismus. Chest/axilla: Normal chest wall appearance and motion. Nontender with no deformity. No lesions are appreciated. 16:30 Skin: Warm, dry with normal turgor. Normal color with no rashes, no lesions, and no evidence of cellulitis. MS/ Extremity: Pulses equal, no cyanosis. Neurovascular intact. Full, normal range of motion. 16:30 Cardiovascular: Exam negative for acute changes, Rate: normal, Rhythm: regular, Pulses: no pulse deficits are appreciated. 16:30 Respiratory: Exam negative for acute changes, respiratory distress, shortness of breath, Breath sounds: are clear throughout. 16:30 Abdomen/GI: Inspection: abdomen appears normal, Palpation: soft, in all quadrants, mild abdominal tenderness, in the left lower quadrant. 16:30 Back: pain, that is moderate, of the left low back, normal spinal alignment noted. 16:30 Neuro: Exam negative for acute changes, Orientation: is normal, Mentation: is normal, Motor: is normal, moves all fours. Vital Signs: 16:03 BP 115 / 79; Pulse 61; Resp 16 S; Temp 97.5(TE); Pulse Ox 99% on R/A; Weight 90.72 kg jd3 (R); Height 5 ft. 11 in. (180.34 cm) (R); Pain 9/10; 17:18 BP 110 / 69; Pulse 65; Resp 16 S; Pulse Ox 100% on R/A; ca1 18:23 BP 119 / 76; Pulse 61; Resp 16 S; Pulse Ox 100% on R/A; ca1 16:03 Body Mass Index 27.89 (90.72 kg, 180.34 cm) jd3 MDM: 16:33 Data reviewed: vital signs. Data interpreted: Pulse oximetry: on room air is 99 %. pm1 Interpretation: normal. 16:34 Patient medically screened. pm1 18:10 ED course: Patient does not feel that she has a urinary tract infection because her pm1 urine is normally cloudy when she has one. Urine micro and dip are negative. Possibly musculoskeletal due to patient doing gym exercises for her back and buttocks - squats and lifts. Therefore will discharge the patient home with pain medications and recommended rest from the gym at the moment . 04/04 16:30 Order name: Basic Metabolic Panel; Complete Time: 17:41 pm1 04/04 16:30 Order name: CBC with Diff; Complete Time: 17:41 pm1 04/04 16:30 Order name: Hepatic Function; Complete Time: 17:41 pm1 04/04 16:30 Order name: Lipase; Complete Time: 17:41 pm1 04/04 16:30 Order name: Urine Microscopic Only; Complete Time: 17:20 pm1 04/04 17:01 Order name: Urine Dipstick-Ancillary; Complete Time: 17:20 EDMS 04/04 16:30 Order name: IV Saline Lock; Complete Time: 16:59 pm1 04/04 16:30 Order name: Labs collected and sent; Complete Time: 16:59 pm1 04/04 16:30 Order name: Urine Dipstick-Ancillary (obtain specimen); Complete Time: 16:59 pm1 04/04 16:30 Order name: CT Abd/Pelvis - IV Contrast Only; Complete Time: 17:48 pm1 04/04 17:09 Order name: Urine --Ancillary (enter results); Complete Time: 17:20 bd 04/04 16:30 Order name: Urine Test (obtain specimen); Complete Time: 16:58 pm1 Administered Medications: 16:53 Drug: NS 0.9% 1000 ml Route: IV; Rate: 1000 ml; Site: right antecubital; ca1 17:54 Follow up: Response: No adverse reaction; IV Status: Completed infusion; IV Intake: ca1 1000ml 16:55 Drug: Zofran (Ondansetron) 4 mg Route: IVP; Site: left antecubital; ca1 17:55 Follow up: Response: No adverse reaction; Nausea is decreased ca1 16:57 Drug: morphine 4 mg {Note: rass 0.} Route: IVP; Site: left antecubital; ca1 17:54 Follow up: Response: No adverse reaction; Pain is decreased; RASS: Alert and Calm (0) ca1 Disposition: 18:39 Co-signature as Attending Physician, Slade Augustine MD. rn Disposition: 04/04/21 18:13 Discharged to Home. Impression: Low back pain, Muscle spasm of back. - Condition is Stable. - Discharge Instructions: Back Pain, Adult, Muscle Cramps and Spasms, Musculoskeletal Pain. - Prescriptions for Tylenol- Codeine #3 300-30 mg Oral Tablet - take 2 tablets by ORAL route every 4-6 hours As needed; 20 tablet. Cyclobenzaprine 10 mg Oral Tablet - take 1 tablet by ORAL route every 8 hours As needed; 30 tablet. - Medication Reconciliation Form, Thank You Letter, Antibiotic Education, Prescription Opioid Use, Work release form form. - Follow up: Emergency Department; When: As needed; Reason: Worsening of condition. Follow up: Private Physician; When: 2 - 3 days; Reason: Recheck today's complaints, Continuance of care, Re-evaluation by your physician. - Problem is new. - Symptoms have improved. Signatures: Dispatcher [employer] EDSlade Fraga MD MD rn Marinas, Patrick, ARACELI SERVICE SUPERINTENDENT pm1 Antonio Laughlin RN RN jd3 Sugar Juarez RN RN ca1 Corrections: (The following items were deleted from the chart) 18:24 18:13 04/04/2021 18:13 Discharged to Home. Impression: Low back pain; Muscle spasm of ca1 back. Condition is Stable. Forms are Medication Reconciliation Form, Thank You Letter, Antibiotic Education, Prescription Opioid Use. Follow up: Emergency Department; When: As needed; Reason: Worsening of condition. Follow up: Private Physician; When: 2 - 3 days; Reason: Recheck today's complaints, Continuance of care, Re-evaluation by your physician. Problem is new. Symptoms have improved. pm1
[2021-04-04 18:43] VITALS: TEMP 97.5
[2021-04-04 18:45] VITALS: O2SAT 100
[2021-04-04 18:46] VITALS: BP 119/76
== END 2021-04-04 18:24 | disposition home or self-care (01) ==
LOC: ER 15:30
DX: M62.830 Muscle spasm of back (principal); F32.9 Major depressive disorder, single episode, unspecified
CPT/HCPCS: 96361; 85025; 80048; 36415; 81025; 80076; 83690; 74177; 96375; 96374; 99284; Q9967; J7030; J2405; 81003; 81015

== ENCOUNTER 2021-11-28 10:36 | Emergency (ER) | payer BC ==
--- OUTSIDE RECORDS SUMMARY | 2021-11-28 10:39 | XMS REPORT | Continuity of Care Document ---
:1995 Author Organization [facility] t Address [address] [place] [address] Care Team Providers Name Role Phone Only, Db Test Attending Clinician Unavailable Ebrahim OPERATIONS SUPPORT PROFESSIONALS Attending Clinician EBRAHIM Attending Clinician Unavailable Omaghomi [employer] Attending Clinician Lab, Fam Pob I Attending Clinician Unavailable Anene [employer]ESSION[employer] Attending Clinician ANENE Attending Clinician Unavailable Payers Payer Name Policy Type Policy Number Effective Date Expiration Date S emelina [place] [id number] 2017 00:00:00 WOMEN Problems Condition Condition Condition Status Onset Resolution Last Treating Co mments Source Name Details Category Date Date Treatment Clinician Date First First Disease Active Univers degree degree 3 ity of lac[place] of of Medical perineum perineum Branch during during delivery, delivery, Varicella Varicella Disease Active Uni vers vaccinatio vaccinatio 01-24 it y of n status n status 00:00: [place] unknown unknown 00 Medical Branch Measles, Measles, Disease Active Unive rs mumps, mumps, 01-24 ity of rubella rubella 00:00: [place] (MMR) (MMR) 00 Medical vaccinatio vaccinatio Br anch n status n status unknown unknown Anemia Anemia Disease Active Univers 3 ity of 00:00: [place] 00 Medical Branch Group beta Group beta Disease Active Overview : Univers Strep Strep 2-28 Formattin ity of positive positive 00:00: g of this [place] as 00 note Medical might be Branch different from the original. +GBS early in urine from results from [place]- scanned into EMR, will need IP tx Disease Active Univers (normal (normal 2-28 ity of spontaneou spontaneou 00:[place] vaginal s vaginal 00 Medi elana delivery) delivery) Bran ch Normal Normal Disease Active Univers 2-28 ity of (single (single 00:00: [place] liveborn) liveborn) 00 [facility] Branch 39 weeks 39 weeks Disease Active Unive rs gestation gestation 2-27 ity of of of 00:00: [place] 00 [facility] Branch Labor and Labor and Disease Active Uni vers delivery delivery 2-27 ity of indication indication 00:00: [place] for care for care 00 Medica l or or Branch interventi interventi on on Anemia of Anemia of Disease Active Uni vers mother in mother in 2-14 ity of , , 00:00[place] antepartum antepartum 00 Me dical Branch Supervisio Supervisio Disease Active Overview : Univers n of high n of high 1-30 Formattin i ty of risk risk 00:00: g of this [place] , , 00 note Me dical antepartum antepartum might be Branch different from the original. See external records for records Allergies, Adverse Reactions, Alerts Allergy Allergy Status Severity Reaction(s) Onset Inactive Treating Comm ents Source Name Type Date Date Clinician NO KNOWN Drug Active Univers ALLERGIE Class ity of S [facility] Social History Social Habit Start Date Stop Date Quantity Comments Source Exposure to Yes [facility] SARS-CoV-2 (event) Medica l Branch Alcohol intake 2017-01-24 2017-01-24 0 /d [facility] 00:00:00 00:00:00 Medical Branch Tobacco use and 2016-12-25 2016-12-25 Never used [facility] exposure 00:00:00 00:00:00 [facility] Branch Sex Assigned At [birth year] [facility] 00:00:00 00:00:00 Medical Branch Smoking Status Start Date Stop Date Source Never smoker [facility] Medications Ordered Filled Start Stop Current Ordering Indication Dosage Frequency Signature Comments Components Source Medication Medication Date Date Medication? Clinician (SIG) Name Name Yes 1{tbl} Take 1 Unive rs vitamin 3-01 tablet by ity of w/FA tablet 00:00: mouth [place] 00 daily. Medical Branch docusate Yes 240mg Take 1 Univer s calcium 240 3-01 capsule by it y of mg capsule 00:00: mouth [place] 00 daily as Medical needed for Branch Constipati on. ferrous 20170 Yes 325mg Take 1 Univers sulfate 325 3-01 tablet by ity of mg (65 mg 00:00: mouth 2 [place] iron) 00 (two) Medical tablet times Branch daily. ibuprofen 0 Yes 600mg Take 1 Unive rs 600 mg 3-01 tablet by ity of tablet 00:00: mouth [place] 00 every 6 Medical (six) Branch hours as needed for Pain (scale 1-3) or Pain (scale 4-6). Take with food or milk. Yes 1{tbl} Take 1 Unive rs vitamin 3-01 tablet by ity of w/FA tablet 00:00: mouth [place] 00 daily. Medical Branch docusate Yes 240mg Take 1 Univer s calcium 240 3-01 capsule by it y of mg capsule 00:00: mouth once [place] 00 daily as Medical needed for Branch Constipati on. ferrous 0 Yes 325mg Take 1 Univers sulfate 325 3-01 tablet by ity of mg (65 mg 00:00: mouth 2 [place] iron) 00 (two) Medical tablet times Branch daily. ibuprofen 0 Yes 600mg Take 1 Unive rs 600 mg 3-01 tablet by ity of tablet 00:00: mouth [place] 00 every 6 Medical (six) Branch hours as needed for Pain (scale 1-3) or Pain (scale 4-6). Take with food or milk. 2016-0 Yes 1{tbl} Take 1 Unive rs vitamin 3-01 tablet by ity of w/FA tablet 00:00: mouth [place] 00 daily. Medical Branch docusate 0 Yes 240mg Take 1 Univer s calcium 240 3-01 capsule by it y of mg capsule 00:00: mouth once [place] 00 daily as Medical needed for Branch Constipati on. ferrous 2017-0 Yes 325mg Take 1 Univers sulfate 325 3-01 tablet by ity of mg (65 mg 00:00: mouth 2 [place] iron) 00 (two) Medical tablet times Branch daily. ibuprofen Yes 600mg Take 1 Unive rs 600 mg 3 tablet by ity of tablet 00:00: mouth [place] 00 every 6 Medical (six) Branch hours as needed for Pain (scale 1-3) or Pain (scale 4-6). Take with food or milk. Immunizations Ordered Filled Immunization Date Status Comments Sour e Immunization Name Name HPV9 2017-01-24 Completed University of 00:00:00 [facility] HPV9 2017-01-24 Completed University of 00:00:00 [facility] HPV9 2017-01-24 Completed University of 00:00:00 [facility] TDAP 2016-12-25 Completed University of 00:00:00 [facility] TDAP 2016-12-25 Completed University of 00:00:00 [facility] TDAP 2016-12-25 Completed University of 00:00:00 [facility] Influenza Virus 2016-09-26 Completed Universit y of Vaccine 00:00:00 [facility] Influenza Virus 2016-09-26 Completed Universit y of Vaccine 00:00:00 [facility] Influenza Virus 2016-09-26 Completed Universit y of Vaccine 00:00:00 [facility] Procedures This patient has no known procedures. Encounters Start End Encounter Admission Attending Care Care Encounter Source Date/Time Date/Time Type Type Clinicians Facility Department ID 2021-11-27 2021-11-27 Outpatient [facility] [id number] Univers 11:30:00 11:30:00 [id number] ity of [facility] 2021-08-18 2021-08-18 Laboratory Only, Ang Db Test [facility] 1.2.8 [id number] [id number] Univers 13:13:23 13:28:23 Only [facility] [id number] ity [facility] [id number] Tor as Teddy?Blea [phone] Az heladio [address] Medical Office Building 2021-08-18 2021-08-18 Outpatient R [facility] [id number] Univers 13:15:00 13:15:00 100000 ity of [facility] 2021-08-18 2021-08-18 Outpatient R KYRIE [facility] [id number] Univers 13:15:00 13:15:00 [place] ity [facility] 2020-06-08 2020-06-08 Telephone DIVINA Shea [id number] 00:00:00 00:00:00 Alfonzo HARDING [id number] [facility] [id number] [facility] 2020-06-08 2020-06-08 Telephone DIVINA Shea [id number] [facility] 00:00:00 00:00:00 Alfonzo MUNOZY [id number] it y of [facility] [id number] Otr as [phone] [address] 2020-06-06 2020-06-06 Laboratory Lab, [facility] Pob I [facility] 1.2. [id number] [id number] [facility] 09:55:39 10:15:39 Only [facility]ay[facility] [id number] ity of [place] [id number] Tor as Professio [phone] Az dical [address] Office [facility] 2020-06-06 2020-06-06 Laboratory Lab, [facility] [id number] 09:55:39 10:15:39 Only Fam Pob I Health [id number] [place] [id number] Professio [phone] [place] [address] Office [facility] 2020-06-06 2020-06-06 Outpatient R [facility] [id number] Univers 10:00:00 10:00:00 [id number] ity [facility] 2020-06-06 2020-06-06 Outpatient R [facility] [id number] Univers 10:00:00 10:00:00 ity [facility] 2020-05-26 2020-05-26 Outpatient R [facility] [id number] Univers 16:20:00 16:20:00 ity [facility] 2020-05-26 2020-05-26 [facility] [id number] Univers 16:20:00 16:20:00 MAKAYLA ity of [facility] Results This patient has no known results.
[2021-11-28 12:41] LABS: SARS-COV-2 RT PCR NEGATIVE (NEGATIVE)
--- NOTE | 2021-11-28 13:31 | RAD REPORT ---
EXAM DESCRIPTION: RAD - Chest Pa And Lat (2 Views) - 11/28/2021 1:14 pm CLINICAL HISTORY: COUGH Chest pain. COMPARISON: Chest Single View dated 05/15/2020; Chest Single View dated 05/18/2019; Chest Single View dated 03/06/2018 FINDINGS: The lungs are clear. The heart is normal in size. No displaced fractures. IMPRESSION: No acute or concerning finding suspected.
--- NOTE | 2021-11-28 13:33 | ER ---
Nurse's Notes [facility] Name: Pablito Irwin Age: 26 yrs Sex: Female : 1995 Arrival Date: 11/28/2021 Time: 10:42 Bed Waiting Private MD: Diagnosis: Acute upper respiratory infection, unspecified Presentation: 11/28 11:21 Chief complaint: Patient states: TORRES, cough, congestion, vomiting x 5 days. Coronavirus jl7 screen: Vaccine status: Patient reports being unvaccinated. congestion, cough unrelated to allergies, headache, vomiting. Client presents with at least one sign or symptom that may indicate coronavirus-19. Standard/surgical mask placed on the client. Ebola Screen: No symptoms or risks identified at this time. Initial Sepsis Screen: Does the patient meet any 2 criteria? No. Patient's initial sepsis screen is negative. Does the patient have a suspected source of infection? No. Patient's initial sepsis screen is negative. Risk Assessment: Do you want to hurt yourself or someone else? Patient reports no desire to harm self or others. Onset of symptoms was November 23, 2021. Care prior to arrival: None. 11:21 Method Of Arrival: Ambulatory 7 11:21 Acuity: ADONIS 4 jl7 Historical: - Allergies: 11:23 No Known Allergies; jl7 - Home Meds: 11:23 None [Active]; jl7 - PMHx: 11:23 Depression; jl7 - PSHx: 11:23 None; jl7 - Immunization history:: Client reports having NOT received the Covid vaccine. - Social history:: Smoking status: Patient denies any tobacco usage or history of. Vital Signs: 11:21 BP 118 / 80; Pulse 83; Resp 20; Temp 98.5; Pulse Ox 100% on R/A; Weight 91.17 kg; jl7 Height 5 ft. 11 in. (180.34 cm); 11:21 Body Mass Index 28.03 (91.17 kg, 180.34 cm) jl7 ED Course: 10:42 Patient arrived in ED. as 11:13 Lad[facility] Gillis [facility]-C [facility] kb 11:13 Armando Flores MD is Attending Physician. kb 11:23 Triage completed. jl7 11:23 Arm band placed on right wrist. jl7 11:24 COVID swab sent to lab. jl7 13:14 Chest Pa And Lat (2 Views) XRAY In Process Unspecified. EDMS 14:25 Lanie Purdy, RN is Primary Nurse. iw Administered Medications: No medications were administered Outcome: 13:32 Discharge ordered by . kb 14:25 Patient left the ED. iw Signatures: Dispatcher [employer] EDMS Ladonna Gillis, ICE SKATING INSTRUCTOR-C ICE SKATING INSTRUCTOR-Radha Lanier as Lanie Purdy, RN RN iw Juan Santacruz RN RN jl7
--- NOTE | 2021-11-28 13:33 | EDPHYS ---
Physician Documentation [facility] Name: Pablito Irwin Age: 26 yrs Sex: Female : 1995 Arrival Date: 11/28/2021 Time: 10:42 Bed Waiting Private MD: ED Physician Armando Flores HPI: 11/28 11:34 This 26 yrs old Black Female presents to ER via Ambulatory with complaints of Vomiting, kb Sore Throat. 11:33 Pt reports headache, sore throat, cough, congestion, fever, chills and sore throat for kb 5 days. . 11:34 The patient or guardian reports cough, that is intermittent, described as mild, flu kb symptoms, low-grade fever, myalgias. Onset: The symptoms/episode began/occurred 5 day(s) ago. Severity of symptoms: At their worst the symptoms were moderate, in the emergency department the symptoms are unchanged. Modifying factors: The symptoms are alleviated by nothing, the symptoms are aggravated by nothing. Associated signs and symptoms: Pertinent positives: fever, nausea, rhinorrhea, sore throat, vomiting, Pertinent negatives: chest pain, diarrhea, ear ache. The patient has not experienced similar symptoms in the past. The patient has not recently seen a physician. Historical: - Allergies: 11:23 No Known Allergies; jl7 - Home Meds: 11:23 None [Active]; jl7 - PMHx: 11:23 Depression; jl7 - PSHx: 11:23 None; jl7 - Immunization history:: Client reports having NOT received the Covid vaccine. - Social history:: Smoking status: Patient denies any tobacco usage or history of. ROS: 11:34 Cardiovascular: Negative for chest pain, palpitations, and edema. kb 11:34 Constitutional: Positive for body aches, chills, fatigue, fever, malaise. 11:34 ENT: Positive for sinus congestion, sore throat. 11:34 Respiratory: Positive for cough, Negative for dyspnea on exertion, hemoptysis, orthopnea, pleurisy, shortness of breath, sputum production, wheezing. 11:34 Neuro: Positive for headache. 11:34 All other systems are negative. Exam: 11:34 Constitutional: This is a well developed, well nourished patient who is awake, alert, kb and in no acute distress. Head/Face: Normocephalic, atraumatic. ENT: Moist Mucous membranes Cardiovascular: Regular rate and rhythm with a normal S1 and S2. No gallops, murmurs, or rubs. No pulse deficits. Respiratory: Respirations even and unlabored. No increased work of breathing. Talking in full sentences Skin: Warm, dry with normal turgor. Normal color. MS/ Extremity: Pulses equal, no cyanosis. Neurovascular intact. Full, normal range of motion. Neuro: Awake and alert, GCS 15, oriented to person, place, time, and situation. Moves all extremities. Normal gait. Psych: Awake, alert, with orientation to person, place and time. Behavior, mood, and affect are within normal limits. Vital Signs: 11:21 BP 118 / 80; Pulse 83; Resp 20; Temp 98.5; Pulse Ox 100% on R/A; Weight 91.17 kg; jl7 Height 5 ft. 11 in. (180.34 cm); 11:21 Body Mass Index 28.03 (91.17 kg, 180.34 cm) 7 MDM: 11:18 Patient medically screened. kb 11:34 Data reviewed: vital signs, nurses notes. Data interpreted: Pulse oximetry: on room air kb is 100 %. Interpretation: normal. 13:32 Counseling: I had a detailed discussion with the patient and/or guardian regarding: the kb historical points, exam findings, and any diagnostic results supporting the discharge/admit diagnosis, lab results, radiology results, the need for outpatient follow up, a family practitioner, to return to the emergency department if symptoms worsen or persist or if there are any questions or concerns that arise at home. 11/28 11:19 Order name: COVID-19/FLU A+B (Document "Date of Onset" if Symptomatic) 11/28 11:20 Order name: COVID-19/FLU A+B; Complete Time: 12:46 EDMS 11/28 11:19 Order name: PO challenge; Complete Time: 11:24 kb 11/28 12:49 Order name: Chest Pa And Lat (2 Views) XRAY; Complete Time: 13:31 kb Administered Medications: No medications were administered Disposition: 11/29 08:41 Co-signature as Attending Physician, Armando Flores MD I agree with the assessment and erika plan of care. Disposition Summary: 11/28/21 13:32 Discharge Ordered Location: Home kb Condition: Stable kb Diagnosis - Acute upper respiratory infection, unspecified kb Followup: kb - With: Emergency Department - When: As needed - Reason: Worsening of condition Followup: kb - With: Private Physician - When: 2 - 3 days - Reason: Recheck today's complaints, Continuance of care, Re-evaluation by your physician Discharge Instructions: - Discharge Summary Sheet kb - Upper Respiratory Infection, Adult, [id number] kb - Viral Respiratory Infection, [id number] kb Forms: - Medication Reconciliation Form kb - Thank You Letter kb - Antibiotic Education kb - Prescription Opioid Use kb Signatures: Dispatcher [employer] EDLadonna Cabello, SLIP FEEDER-C SLIP FEEDER-Armando Hyatt MD MD cha Leal, Jahala RN RN jl7
[2021-11-28 14:36] VITALS: BP 118/80; TEMP 98.5; O2SAT 100
== END 2021-11-28 14:25 | disposition home or self-care (01) ==
LOC: ER 10:36
DX: J06.9 Acute upper respiratory infection, unspecified (principal); Z20.822 Contact with and (suspected) exposure to COVID-19
CPT/HCPCS: 0240U; 71046; 99282

== ENCOUNTER 2022-03-22 18:47 | Emergency (ER) | payer BC ==
--- OUTSIDE RECORDS SUMMARY | 2022-03-22 18:50 | XMS REPORT | Continuity of Care Document ---
:1995 Author Organization [facility] t Address [address] [place] [address] Care Team Providers Name Role Phone Only, Db Test Attending Clinician Unavailable Ebrahim HYDRAULIC CONTROLS TECHNICIAN Attending Clinician EBRAHIM Attending Clinician Unavailable Omaghomi HYDRAULIC CONTROLS TECHNICIAN Attending Clinician Lab, Fam Pob I Attending Clinician Unavailable Anene HYDRAULIC CONTROLS TECHNICIAN Attending Clinician ANENE Attending Clinician Unavailable Payers Payer Name Policy Type Policy Number Effective Date Expiration Date S emelina [employer] [place] [id number] 2017 00:00:00 WOMEN Problems Condition Condition Condition [...] Measles, Disease Active Unive rs mumps, mumps, 3 ity of rubella rubella 00:00: [place] (MMR) [...] +GBS early in urine from results from [place]- scanned into EMR, will need IP tx Disease Active Univers (normal (normal 2-28 ity of spontaneou spontaneou [place] vaginal s vaginal 00 Medi [facility] delivery) delivery) Bran ch Normal Normal Disease Active Univers 2-28 ity of (single (single 00:00: [place] liveborn) liveborn) 00 Medi elana Branch 39 weeks 39 weeks Disease Active Unive rs gestation gestation 2-27 ity of of of 00:00: [place] 00 [facility] Branch Labor and Labor and [...] of risk risk 00:00: g of this [place] , , 00 note Me dical antepartum antepartum might be Branch different from the original. See external records for records Allergies, Adverse Reactions, Alerts Allergy Allergy Status Severity Reaction(s) Onset Inactive Treating Comm ents Source Name Type Date Date Clinician NO KNOWN Drug Active Univers ALLERGIE Class ity of S [facility] Social History Social Habit Start Date Stop Date Quantity Comments Source Exposure to Yes [facility] SARS-CoV-2 (event) Medica l Branch Alcohol intake 2017-01-24 2017-01-24 0 /d [facility] 00:00:00 00:00:00 [facility] Branch Tobacco use and 2016-12-25 2016-12-25 Never used [facility] exposure 00:00:00 00:00:00 [facility] Branch Sex Assigned At [birth year] [facility] 00:00:00 00:00:00 Medical Branch Smoking Status Start Date Stop Date Source Never smoker [facility] Medications Ordered Filled Start Stop Current Ordering Indication Dosage Frequency Signature Comments Components Source Medication Medication Date Date Medication? Clinician (SIG) Name Name 2017- Yes 1{tbl} Take 1 Unive rs vitamin [...] (scale 4-6). Take with food or milk. 0 Yes 1{tbl} Take 1 Unive rs vitamin [...] (scale 4-6). Take with food or milk. 2017-0 Yes 1{tbl} Take 1 Unive rs vitamin 3-01 tablet by ity of w/FA tablet 00:00: mouth [place] 00 daily. Medical Branch docusate 20170 Yes 240mg Take 1 Univer s calcium 240 3-01 capsule by it y of mg capsule 00:00: mouth once [place] 00 daily as Medical needed for Branch Constipati on. ferrous 2017-0 Yes 325mg Take 1 Univers sulfate 325 3-01 tablet by ity of mg (65 mg 00:00: mouth 2 [place] iron) 00 (two) Medical tablet times Branch daily. ibuprofen 2017- Yes 600mg Take 1 Unive rs 600 mg 3-01 tablet by ity of tablet 00:00: mouth [place] 00 every 6 Medical (six) Branch hours as needed for Pain (scale 1-3) or Pain (scale 4-6). Take with food or milk. Immunizations Ordered Filled Immunization Date Status Comments Sour e Immunization Name Name HPV9 2017-01-24 Completed University of 00:00:00 [facility] HPV9 2017-01-24 Completed University of 00:00:00 [facility] HPV9 2017-01-24 Completed University of 00:00:00 [facility] TDAP 2016-12-25 Completed University of 00:00:00 [facility] TDAP 2016-12-25 Completed University of 00:00:00 [facility] TDAP 2016-12-25 Completed University of 00:00:00 [facility] Influenza Virus 2016-09-26 Completed Universit y of Vaccine 00:00:00 [facility] Influenza Virus 2016-09-26 Completed Universit y of Vaccine 00:00:00 [facility] Influenza Virus 2016-09-26 Completed Universit y of Vaccine 00:00:00 [facility] Procedures This patient has no known procedures. Encounters Start End Encounter Admission Attending Care Care Encounter Source Date/Time Date/Time Type Type Clinicians Facility Department ID 2022-02-19 2022-02-19 Outpatient PRIV PRIV [id number] [facility] 10:13:00 10:13:00 [id number] Medica l 2022-02-19 2022-02-19 Outpatient PRIV PRIV [id number] [facility] 10:13:00 10:13:00 [id number] Medica l 2022-02-14 2022-02-14 Outpatient PRIV PRIV [id number] [facility] 05:49:00 05:49:00 [id number] Medica l 2021-11-27 2021-11-27 Outpatient [facility] [id number] Univers 11:30:00 11:30:00 [id number] ity of [facility] 2021-08-18 2021-08-18 Laboratory Only, Ang Db Test [facility] 1.2.8 40.114 [id number] Univers 13:13:23 13:28:23 Only Leann [facility] [id number] ity of [place] [id number] Tor as Teddy?Blea [phone] [facility] [address] 2021-08-18 2021-08-18 Outpatient R [facility] [id number] [facility] 13:15:00 13:15:00 [id number] ity of [facility] 2021-08-18 2021-08-18 Outpatient R MARY ANN [facility] [id number] [facility] 13:15:00 13:15:00 LEANN ity [facility] 2020-06-08 2020-06-08 Telephone DIVINA Shea [id number] [id number] [facility] 00:00:00 00:00:00 Alfonzo MEAGHAN [id number] it y of HOSPITAL [id number] Tor as [id number] [address] 2020-06-08 2020-06-08 Telephone DIVINA Shea [id number] 00:00:00 00:00:00 Omayemteresa MEAGHAN [id number] HOSPITAL [id number] [facility] 2020-06-06 2020-06-06 Laboratory Lab, [facility] Pob I [facility] 1.2. 840.114 [id number] [facility] 09:55:39 10:15:39 Only Anene, Makayla Health [id number] ity of [place] [id number] Tor as Professio [phone] [facility] [address] 2020-06-06 2020-06-06 Laboratory Lab, [facility] 1.2.840.114 [id number] 09:55:39 10:15:39 Only Fam Pob I Health [id number] [place] [id number] Professio [id number] nal [facility] Office [address] 2020-06-06 2020-06-06 Outpatient R [facility] [id number] Univers 10:00:00 10:00:00 [id number] [facility] 2020-06-06 Outpatient R [facility] [id number] Univers 10:00:00 10:00:00 ity [facility] 2020-05-26 2020-05-26 Outpatient R [facility] [id number] Univers 16:20:00 16:20:00 rudy [facility] 2020-05-26 2020-05-26 Outpatient R ELIANA [facility] [id number] Univers 16:20:00 16:20:00 MAKAYLA grant [facility] Results This patient has no known results.
[2022-03-22 21:57] LABS: Urine Blood Negative (Negative); Urine Glucose Negative (Negative); Urine Protein Negative (Negative)
--- NOTE | 2022-03-22 22:23 | EDPHYS ---
Physician Documentation [facility] Name: Pablito Irwin Age: 27 yrs Sex: Female : 1995 Arrival Date: 03/22/2022 Time: 18:49 Bed 11 Private MD: ED Physician Armando Flores HPI: 03/22 19:30 This 27 yrs old Black Female presents to ER via Ambulatory with complaints of STD cp Exposure. 19:30 The patient presents with a possible exposure to a sexually transmitted disease, and cp has been treated with nothing to date, Trichomonas, urinary symptoms, urinary odor, vaginal discharge, that is white discharge. Onset: The symptoms/episode began/occurred 2 week(s) ago. Associated signs and symptoms: The patient has no apparent associated signs or symptoms. Severity of symptoms: in the emergency department the symptoms are unchanged, despite home interventions. Patient reports sexual partner recently tested positive for Trichomonas. 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 Flu vaccine status is unknown. - Social history:: Smoking status: Patient denies any tobacco usage or history of. ROS: 19:35 Cardiovascular: Negative for chest pain, edema, palpitations. cp 19:35 Eyes: Negative for injury, pain, redness, and discharge. cp 19:35 Constitutional: Negative for body aches, chills, fever, poor PO intake. 19:35 ENT: Negative for drainage from ear(s), ear pain, sore throat, difficulty swallowing, difficulty handling secretions. 19:35 Respiratory: Negative for cough, shortness of breath, wheezing. 19:35 Abdomen/GI: Negative for abdominal pain, nausea, vomiting, and diarrhea. 19:35 : Positive for foul smelling urine, vaginal discharge, Negative for pelvic pain, vaginal bleeding. 19:35 Neuro: Negative for altered mental status, headache, weakness. 19:35 All other systems are negative. Exam: 19:40 Constitutional: The patient appears in no acute distress, alert, awake, comfortable, cp non-toxic, well developed, well nourished. 19:40 Head/Face: Normocephalic, atraumatic. cp 19:40 Eyes: Periorbital structures: appear normal, Conjunctiva: normal, no exudate, no injection, Lids and lashes: appear normal, bilaterally. 19:40 ENT: External ear(s): are unremarkable, Nose: is normal, Mouth: Lips: moist, Oral mucosa: moist, Posterior pharynx: Airway: no evidence of obstruction, patent. 19:40 Chest/axilla: Inspection: normal. 19:40 Cardiovascular: Rate: normal, Rhythm: regular. 19:40 Respiratory: the patient does not display signs of respiratory distress, Respirations: normal, no use of accessory muscles, no retractions, labored breathing, is not present. 19:40 Abdomen/GI: Inspection: abdomen appears normal, Bowel sounds: active, all quadrants, Palpation: abdomen is soft and non-tender, in all quadrants. 19:40 Back: CVA tenderness, is absent. 21:45 : Pelvic Exam: External exam: is normal, Speculum exam: no bleeding is noted, no cp cervicitis, os that is closed, no tissue in cervix is seen, no tissue in vagina is seen, bimanual exam reveals no cervical motion tenderness, no adnexa tenderness or masses bilaterally, discharge, white, the nurse was present for the exam. Vital Signs: 18:58 BP 126 / 77; Pulse 81; Resp 16; Temp 97.9; Pulse Ox 100% ; Weight 91.17 kg; Height 5 ll1 ft. 11 in. (180.34 cm); Pain 0/10; 22:54 BP 111 / 71; Pulse 80; Resp 16; Pulse Ox 100% on R/A; Pain 0/10; ag7 18:58 Body Mass Index 28.03 (91.17 kg, 180.34 cm) ll1 MDM: 19:19 Patient medically screened. erika 20:00 Differential diagnosis: miguel a infection, cervicitis, pelvic inflammatory disease, cp urinary tract infection, vaginosis. 22:21 Data reviewed: vital signs, nurses notes, lab test result(s). cp 22:21 Counseling: I had a detailed discussion with the patient and/or guardian regarding: the cp historical points, exam findings, and any diagnostic results supporting the discharge/admit diagnosis, lab results, to return to the emergency department if symptoms worsen or persist or if there are any questions or concerns that arise at home. Response to treatment: the patient's symptoms have mildly improved after treatment, and as a result, I will discharge patient. 03/22 19:26 Order name: Urine Microscopic Only; Complete Time: 23:18 cp 03/22 19:52 Order name: Wet Prep; Complete Time: 22:04 cp 03/22 19:52 Order name: GC (GONORR/CHLAMYDIA) Probe cp 03/22 21:58 Order name: Urine Dipstick-Ancillary; Complete Time: 22:04 EDKS 03/22 19:26 Order name: Urine Dipstick-Ancillary (obtain specimen) cp 03/22 19:26 Order name: Urine Test (obtain specimen) cp 03/22 19:52 Order name: Pelvic Exam Setup cp Administered Medications: 22:40 Drug: metroNIDAZOLE 2 grams Route: PO; ag7 22:40 Drug: Zithromax (azithromycin) 1 grams Route: PO; ag7 22:41 Drug: Rocephin (cefTRIAXone) 500 mg Route: IM; Site: left ventrogluteal; ag7 Disposition Summary: 03/22/22 22:22 Discharge Ordered Location: Home cp Problem: new cp Symptoms: have improved cp Condition: Stable cp Diagnosis - Unspecified sexually transmitted disease cp Followup: cp - With: Private Physician - When: 2 - 3 days - Reason: Worsening of condition Discharge Instructions: - Discharge Summary Sheet cp - Trichomoniasis cp - Chlamydia Test cp - Gonorrhea Test cp Forms: - Medication Reconciliation Form cp - Thank You Letter cp - Antibiotic Education cp - Prescription Opioid Use cp Signatures: Dispatcher [employer] EDArmando Arteaga MD MD cha Page, Corey, PA PA cp John Streeter RN RN ll1 Martha Foster, GAY RN ag7
--- NOTE | 2022-03-22 22:23 | ER ---
Nurse's Notes [facility] Name: Pablito Irwin Age: 27 yrs Sex: Female : 1995 Arrival Date: 03/22/2022 Time: 18:49 Bed 11 Private MD: Diagnosis: Unspecified sexually transmitted disease Presentation: 03/22 18:58 Chief complaint: Patient states: Exposed to trichomonas. Has been having "female ll1 issues" for 2 weeks. Vaginal discharge, itching, and foul odor. Coronavirus screen: Vaccine status: Patient reports being unvaccinated. Client denies travel out of the [place] in the last 14 days. At this time, the client does not indicate any symptoms associated with coronavirus-19. Ebola Screen: Patient denies travel to an Ebola-affected area in the 21 days before illness onset. Initial Sepsis Screen: Does the patient meet any 2 criteria? No. Patient's initial sepsis screen is negative. Does the patient have a suspected source of infection? Yes: Other: vaginal issues. Risk Assessment: Do you want to hurt yourself or someone else? Patient reports no desire to harm self or others. Onset of symptoms was March 08, 2022. 18:58 Method Of Arrival: Ambulatory ll1 18:58 Acuity: ADONIS 4 ll1 Triage Assessment: 19:00 General: Appears uncomfortable, Behavior is cooperative, appropriate for age. Pain: ll1 Denies pain. : Reports vaginal itching, discharge with foul odor. 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 Flu vaccine status is unknown. - Social history:: Smoking status: Patient denies any tobacco usage or history of. Screenin:36 Abuse screen: Denies threats or abuse. Nutritional screening: No deficits noted. ag7 Tuberculosis screening: No symptoms or risk factors identified. Fall Risk No fall in past 12 months (0 pts). No secondary diagnosis (0 pts). No IV (0 pts). Ambulatory Aid- None/Bed Rest/Nurse Assist (0 pts). Gait- Normal/Bed Rest/Wheelchair (0 pts) Mental Status- Oriented to own ability (0 pts). Total Smith Fall Scale indicates No Risk (0-24 pts). Assessment: 19:00 Neuro: Level of Consciousness is awake, alert, obeys commands, Oriented to person, ag7 place, time, situation, Appropriate for age. 20:33 General: Appears in no apparent distress. Behavior is calm, cooperative, appropriate ag7 for age. Pain: Denies pain. Cardiovascular: Denies chest pain, Patient's skin is warm and dry. Respiratory: Airway is patent Trachea midline Respiratory effort is even, unlabored, Respiratory pattern is regular, symmetrical. : Denies pain with urination c/o white creamy discharge with intermittent itching. 21:33 Reassessment: Patient and/or family updated on plan of care and expected duration. Pain ag7 level reassessed. Patient is alert, oriented x 3, equal unlabored respirations, skin warm/dry/pink. Patient denies pain at this time. 22:33 Reassessment: Patient and/or family updated on plan of care and expected duration. Pain ag7 level reassessed. Patient is alert, oriented x 3, equal unlabored respirations, skin warm/dry/pink. Patient denies pain at this time. Vital Signs: 18:58 BP 126 / 77; Pulse 81; Resp 16; Temp 97.9; Pulse Ox 100% ; Weight 91.17 kg; Height 5 ll1 ft. 11 in. (180.34 cm); Pain 0/10; 22:54 BP 111 / 71; Pulse 80; Resp 16; Pulse Ox 100% on R/A; Pain 0/10; ag7 18:58 Body Mass Index 28.03 (91.17 kg, 180.34 cm) ll1 ED Course: 18:49 Patient arrived in ED. mr 18:59 Triage completed. ll1 19:00 Arm band placed on. ll1 19:05 Armando Murillo PA is PHCP. cp 19:05 Rodriguez Pierce MD is Attending Physician. cp 19:19 Attending Physician role handed off by Rodriguez Pierce MD erika 19:19 Armando Flores MD is Attending Physician. erika 20:33 Martha Foster, GAY is Primary Nurse. ag7 20:37 Patient has correct armband on for positive identification. Placed in gown. Bed in low ag7 position. Call light in reach. 20:37 No provider procedures requiring assistance completed. Patient did not have IV access ag7 during this emergency room visit. 21:40 Assist provider with pelvic exam: Specimens sent to lab. Patient tolerated well. ag7 observation bedside. Administered Medications: 22:40 Drug: metroNIDAZOLE 2 grams Route: PO; ag7 22:40 Drug: Zithromax (azithromycin) 1 grams Route: PO; ag7 22:41 Drug: Rocephin (cefTRIAXone) 500 mg Route: IM; Site: left ventrogluteal; ag7 Outcome: 22:22 Discharge ordered by MD. cp 22:54 Discharged to home ambulatory. ag7 22:54 Condition: stable 22:54 Discharge instructions given to patient, Instructed on discharge instructions, follow up and referral plans. Demonstrated understanding of instructions, follow-up care. 23:20 Patient left the ED. tw5 Signatures: Armando Flores MD MD cha Rivera, Marya mr Armando Murillo PA PA cp Lewis, Lynsay, RN RN 1 Patsy Fairbanks tw5 Martha Foster RN RN ag7 Corrections: (The following items were deleted from the chart) 19:01 18:58 Chief complaint: Patient states: Exposed to trichomonas. Has been having "female ll1 issues" for 2 weeks. ll1 19:01 18:58 Acuity: ADONIS 3 ll1 ll1 20:36 20:33 General: Appears in no apparent distress. Behavior is calm, cooperative, ag7 appropriate for age, ag7 20:36 20:33 Neuro: Level of Consciousness is awake, alert, obeys commands, Oriented to ag7 person, place, time, situation, Appropriate for age ag7
[2022-03-22] MEDS ORDERED: metroNIDAZOLE 500 MG TABLET ONE (22:29)
[2022-03-22] MEDS ORDERED: CEFTRIAXONE 500 MG/VIAL ONE (22:29)
[2022-03-22] MEDS ORDERED: AZITHROMYCIN 250 MG TAB ONE (22:30)
[2022-03-22 23:06] LABS: Urine Bacteria <20 /HPF (<20); Urine RBC NONE SEEN /HPF (NONE SEEN)
[2022-03-23 00:50] VITALS: TEMP 97.9; O2SAT 100
[2022-03-23 00:51] VITALS: BP 111/71
[2022-03-26 17:38] LABS: C.trachomatis RNA,TMA Not Detected (Not Detected)
== END 2022-03-22 23:20 | disposition home or self-care (01) ==
LOC: ER 18:47
DX: A64 Unspecified sexually transmitted disease (principal)
CPT/HCPCS: 87210; 87590; 87490; 96372; 99283; J0696; 81003; 81015

== ENCOUNTER 2022-10-17 15:46 | Emergency (ER) | payer BC ==
--- OUTSIDE RECORDS SUMMARY | 2022-10-17 15:49 | XMS REPORT | Continuity of Care Document ---
:1995 Author Organization [facility] t Address [address] [place] [address] Care Team Providers Name Role Phone Pcp, Patient Does Not Have A Primary Care Physician [id number] AMBAR MILLER Attending Clinician Unavailable BECKI ZHAO Attending Clinician Unavailable [id number] Attending Clinician Unavailable Yeni SWEAT BAND SEPARATORVianney Stokes Attending Clinician ANTIONE BECERRA Attending Clinician Unavailable Ivan Chau MD Attending Clinician IVAN CHAU Attending Clinician Unavailable Doctor Unassigned, [place] Attending Clinician Unavailable Only, Ang Db Test Attending Clinician Unavailable EbrahiLeann Nowak Attending Clinician EBLEANN HEREDIA Attending Clinician Unavailable Omaghomi SWEAT BAND SEPARATOR Omayemi Attending Clinician Lab, Adc Fam Pob I Attending Clinician Unavailable Makayla Wright Attending Clinician MAKAYLA MONROY Attending Clinician Unavailable Payers Payer Name Policy Type Policy Number Effective Date Expiration Date Elie tarango BCBS 2 [id number] 2022 00:00:00 [place] [id number] 2017 00:00:00 WOMEN Problems Condition Condition Condition Status Onset Resolution Last Treating Co mments Source Name Details Category Date Date Treatment Clinician Date First First Disease Active Univers degree degree 3- [place] of [place] Medical perineum perineum Branch during during delivery, delivery, Varicella Varicella Disease Active Uni vers vaccinatio vaccinatio 3 it y of n status n status 00:00: [place] unknown unknown 00 Medical Branch Measles, Measles, Disease Active Unive rs mumps, mumps, 01-24 ity of rubella rubella 00:00: [place] (MMR) (MMR) 00 Medical vaccinatio vaccinatio Br anch n status n status unknown unknown Anemia Anemia Disease Active Univers 3 ity of 00:00: [place] 00 Medical Branch Disease Active Univers (normal (normal 2-28 ity of spontaneou spontaneou [place] s vaginal 00 [facility] delivery) delivery) Bran ch Normal Normal Disease Active Univers 2-28 ity of (single (single 00:00: [place] liveborn) liveborn) 00 [facility] Branch Group beta Group beta Disease Active Overview : Univers Strep Strep 2-28 Formattin ity of positive positive 00:00: g of this [place] as 00 note Medical might be Branch different from the original. +GBS early in urine from results from [place]- scanned into EMR, will need IP tx 39 weeks 39 weeks Disease Active Unive rs gestation gestation 2-27 ity of of of 00:00: [place] 00 [facility] Branch Labor and Labor and Disease Active Uni vers delivery delivery 2-27 [place] of indication [place] for care for care 00 Medica l or or Branch interventi interventi on on Labor and Labor and Disease Active Uni [...] of risk risk 00:00: g of this [place] , , 00 note Me dical antepartum antepartum might be Branch different from the original. See external records for records Allergies, Adverse Reactions, Alerts Allergy Allergy Status Severity Reaction(s) Onset Inactive Treating Comm ents Source Name Type Date Date Clinician NO KNOWN Drug Active Univers ALLERGIE Class ity of S [facility] Social History Social Habit Start Date Stop Date Quantity Comments Source Exposure to 2022-05-12 2022-05-22 Yes [facility] SARS-CoV-2 00:00:00 19:44:00 [facility] (event) [place] Alcohol intake 2022-05-22 2022-05-22 0 /d University of 00:00:00 00:00:00 [facility] Tobacco use and 2016-12-25 2016-12-25 Smokeless tobacco Un iversity of exposure 00:00:00 00:00:00 non-user [facility] Sex [birth year] Universit y of 00:00:00 00:00:00 [facility] Smoking Status Start Date Stop Date Source Never smoked tobacco [facility] Medications Ordered Filled Start Stop Current Ordering Indication Dosage Frequency Signature Comments Components Source Medication Medication Date Date Medication? Clinician (SIG) Name Name bromphenira Yes [id number] 5mL Take 5 mL Univers mine-pseudo 6-27 by mouth 4 it y of ephedrine-D 00:00: (four) Brianna Rush (BROMFED 00 times Medical DM) 2-30-10 daily as Bran ch mg/5 mL needed for syrup Congestion /Allergies or Cough. albuterol Yes [id number] 2{puff} Inhale 2 Univers 90 6-27 Puffs ity of mcg/actuati 00:00: every 6 [place] on inhaler 00 (six) Medical hours as Branch needed for Wheezing, Bronchospa sm or Chest tightness. bromphenira Yes [id number] 5mL Take 5 mL Univers mine-pseudo 6-27 by mouth 4 it y of ephedrine-D 00:00: (four) Brianna s M (BROMFED 00 times Medical DM) 2-30-10 daily as Bran ch mg/5 mL needed for syrup Congestion /Allergies or Cough. albuterol Yes [id number] 2{puff} Inhale 2 Univers 90 6-27 Puffs ity of mcg/actuati 00:00: every 6 [place] on inhaler 00 (six) Medical hours as Branch needed for Wheezing, Bronchospa sm or Chest tightness. 2017-0 Yes 1{tbl} Take 1 Unive rs [...] (two) Medical tablet times Branch daily. ibuprofen [id number] Yes 600mg Take 1 Unive rs 600 mg 3-01 tablet by ity of tablet 00:00: mouth [place] 00 every 6 Medical (six) Branch hours as needed for Pain (scale 1-3) or Pain (scale 4-6). Take with food or milk. 20170 Yes 1{tbl} Take 1 Unive rs vitamin [...] (two) Medical tablet times Branch daily. ibuprofen 20170 Yes 600mg Take 1 Unive rs 600 [...] (two) Medical tablet times Branch daily. ibuprofen 2017-0 Yes 600mg Take 1 Unive rs 600 [...] (two) Medical tablet times Branch daily. ibuprofen 2017-0 Yes 600mg Take 1 Unive rs 600 mg 3-01 tablet by ity of tablet 00:00: mouth [place] 00 every 6 Medical (six) Branch hours as needed for Pain (scale 1-3) or Pain (scale 4-6). Take with food or milk. 2017-0 Yes 1{tbl} Take 1 Unive rs vitamin 3-01 tablet by ity of w/FA tablet 00:00: mouth [place] 00 daily. Medical Branch docusate 2017-0 Yes 240mg Take 1 Univer s calcium 240 3-01 capsule by it y of mg capsule 00:00: mouth [place] 00 daily as Medical needed for Branch Constipati on. ferrous 2017-0 Yes 325mg Take 1 Univers sulfate 325 3-01 tablet by ity of mg (65 mg 00:00: mouth 2 [place] iron) 00 (two) Medical tablet times Branch daily. ibuprofen 2017-0 Yes 600mg Take 1 Unive rs 600 [...] 240mg Take 1 Univer s calcium 240 3- capsule by it y of mg capsule 00:00: mouth once [place] 00 daily as Medical needed for Branch Constipati on. ferrous 2016- Yes 325mg Take 1 Univers sulfate 325 3- tablet by ity of mg (65 mg 00:00: mouth 2 [place] iron) 00 (two) Medical tablet times Branch daily. ibuprofen Yes 600mg Take 1 Unive rs 600 mg 3- tablet by ity of tablet 00:00: mouth [place] 00 every 6 Medical (six) Branch hours as needed for Pain (scale 1-3) or Pain (scale 4-6). Take with food or milk. Immunizations Ordered Filled Immunization Date Status Comments [facility] e Immunization Name Name HPV9 2017-01-24 Completed University of 00:00:00 [facility] [place] 2017-01-24 Completed University of 00:00:00 [facility] HPV9 2017-01-24 Completed University of 00:00:00 [facility] HPV9 2017-01-24 Completed University of 00:00:00 [facility] HPV9 2017-01-24 Completed University of 00:00:00 [facility] HPV9 2017-01-24 Completed University of 00:00:00 [facility] TDAP 2016-12-25 Completed University of 00:00:00 [facility] TDAP 2016-12-25 Completed University of 00:00:00 [facility] TDAP 2016-12-25 Completed University of 00:00:00 [facility] TDAP 2016-12-25 Completed University of 00:00:00 [facility] TDAP 2016-12-25 Completed University of 00:00:00 [facility] TDAP 2016-12-25 Completed University of 00:00:00 [facility] Influenza Virus 2016-09-26 Completed Universit y of Vaccine 00:00:00 [facility] Influenza Virus 2016-09-26 Completed Universit y of Vaccine 00:00:00 [facility] Influenza Virus 2016-09-26 Completed Universit y of Vaccine 00:00:00 [facility] Influenza Virus 2016-09-26 Completed Universit y of Vaccine 00:00:00 [place] [facility] Influenza Virus 2016-09-26 Completed Universit y of Vaccine 00:00:00 [facility] Influenza Virus 2016-09-26 Completed Universit y of Vaccine 00:00:00 [facility] Vital Signs Vital Name Observation Time Observation Value Comments Source Systolic blood 2022-05-23 00:51:00 127 mm[Hg] Univer sity of pressure [facility] Diastolic blood 2022-05-23 00:51:00 87 mm[Hg] Unive rsity of [facility] Heart rate 2022-05-23 00:47:00 81 /min [facility] Body temperature 2022-05-23 00:47:[address] [facility] Respiratory rate 2022-05-23 00:47:00 18 /min [facility] Body height 2022-05-23 00:47:00 180.3 cm [facility] Body weight 2022-05-23 00:47:00 99.247 kg [facility] BMI 2022-05-23 00:47:00 30.52 kg/m2 [facility] Oxygen saturation in 2022-05-23 00:47:00 100 /min [facility] blood by [facility] Pulse oximetry Branch Procedures Procedure Date / Time Performed Performing Clinician [facility] e CONSENT/REFUSAL FOR 2022-05-23 00:43:43 Doctor Unassigned, No [facility] DIAGNOSIS AND Name Medical Branch TREATMENT ASSIGNMENT OF BENEFITS 2022-05-23 00:43:32 Doctor Unassigned, No [facility] Encounters Start End Encounter Admission Attending Care Care Encounter Source Date/Time Date/Time Type Type Clinicians Facility Department ID 2022-10-23 2022-10-23 Outpatient MELISSA MILLER [id number] [place] 15:15:00 15:15:00 HOMAYOSSI Bojorquezol fidencio 2022-09-18 2022-09-18 Outpatient MELISSA ZHAO [id number] Melissa 00:00:00 00:00:00 BECKI guidry 2022-09-15 2022-09-15 Outpatient MELISSA ZHAO [id number] Melissa 00:00:00 00:00:00 BECKI guidry 2022-09-14 2022-09-14 Outpatient MELISSA ZHAO MELISSA [id number] Melissa 00:00:00 00:00:00 BECKI Seyb old 2022-09-13 2022-09-13 Outpatient LAB47 MELISSA MELISSA [id number] Melissa 09:40:00 09:40:00 Seybol d 2022-09-13 2022-09-13 Outpatient MELISSA ZHAO MELISSA [id number] Melissa 08:30:00 08:30:00 BECKI Seyb old 2022-06-09 2022-06-09 [place] [id number] [facility] 00:00:00 00:00:00 [facility] [id number] i ty of [place] 4.2.7.2.686 [place] as TEDDY?BLEA [id number] [address] OFFICE [facility] 2022-05-30 2022-05-30 Outpatient HERNAN MELISSA TIWARI [id number] Melissa 10:45:00 10:45:00 ANTIONE Seybol d 2022-05-22 2022-05-22 [facility] 1.2.840. [id number] Univers 19:40:00 20:00:00 Corey Chau [facility] [id number] ity of [place] 4.2.7.2.686 [place] as TEDDY?BLEA [id number] [address] OFFICE [facility] 2022-05-22 2022-05-22 Outpatient [facility] [id number] Univers 19:40:00 19:40:00 IVAN ity [facility] 2022-05-22 2022-05-22 Orders Doctor MURCIA [id number] Univers 00:00:00 00:00:00 Only Unassigned, MEAGHAN [id number] [facility] 4.2.7.2.686 [place] as [id number] [address] 2022-02-19 2022-02-19 Outpatient PRIV PRIV [id number] [facility] 10:13:00 10:13:00 [id number] Medica l 2022-02-142022-02-14 Outpatient PRIV PRIV [id number] [facility] 05:49:00 05:49:00 [id number] Medica l 2021-08-18 2021-08-18 Laboratory Only, Ang Db Test [facility] 1.2.8 40.114 [id number] Univers 13:13:23 13:28:23 Only Leann [facility] [id number] ity of [place] 4.2.7.2.686 [place] as Teddy?Blea [id number] Hi dical kney [address] [place] [facility] 2021-08-18 2021-08-18 Outpatient R [facility] [id number] Univers 13:15:00 13:15:00 LEANN ity [facility] 2020-06-08 2020-06-08 Telephone Savitamarcoiza DIVINA [id number] Univers 00:00:00 00:00:00 zhannai MEAGHAN 350.1.13.10 it y of HOSPITAL 4.2.7.2.686 [place] as [id number] [address] 2020-06-08 2020-06-08 Telephone SavitamarcoDIVINA couch [id number] 00:00:00 00:00:00 Omzhannai MEAGHAN 350.1.13.10 HOSPITAL 4[address].7[id number] [facility] 2020-06-06 2020-06-06 Laboratory Lab, [facility] Fam Pob I [facility] 1.2. [id number] Univers 09:55:39 10:15:39 Only Anene, Makayla Health 350.1.13.10 ity of [place] 4.2.7.2.686 Tor as Professio [id number] Hi dical nal [address] [place] [facility] [address] 2020-06-06 2020-06-06 Laboratory Lab, [facility] [id number] 09:55:39 10:15:39 Only Fam Pob I Health 350.1.13.10 [place] 4.2.7.2.686 Professio [phone] nal [facility] 2020-06-06 2020-06-06 Outpatient R [facility] [id number] Univers 10:00:00 10:00:00 rudy [facility] 2020-05-26 2020-05-26 Outpatient R [facility] [id number] Univers 16:20:00 16:20:00 MAKAYLA grant [facility] Results This patient has no known results.
[2022-10-17] MEDS ORDERED: IBUPROFEN 400 MG TAB ONE (16:16)
[2022-10-17 17:23] LABS: SARS-COV-2 RT PCR NEGATIVE (NEGATIVE)
--- NOTE | 2022-10-17 17:50 | RAD REPORT ---
EXAM DESCRIPTION: RAD - Chest Pa And Lat (2 Views) - 10/17/2022 5:23 pm CLINICAL HISTORY: COUGH COMPARISON: Chest Pa And Lat (2 Views) dated 11/28/2021; Chest Single View dated 05/15/2020; Chest Sing le View dated 05/18/2019; Chest Single View dated 03/06/2018 FINDINGS: Lines: None. Lungs: No evidence of edema or pneumonia. Pleural: No significant pleural effusions or pneumothorax. Cardiac: The heart size is within normal limits. Mediastinum: Within normal limits. Bones: No acute fractures. Other: None IMPRESSION: No acute cardiopulmonary disease.
--- NOTE | 2022-10-17 17:56 | ER ---
Nurse's Notes [facility] Name: Pablito Irwin Age: 27 yrs Sex: Female : 1995 Arrival Date: 10/17/2022 Time: 15:48 Bed 10 Private MD: Diagnosis: Influenza due to identified novel influenza A virus with other respiratory manifestations Presentation: 10/17 15:54 Chief complaint: Patient states: Cough X 1 week. Fever, nausea, diarrhea, body aches, ld1 chills X 2 days. Coronavirus screen: At this time, the client does not indicate any symptoms associated with coronavirus-19. Ebola Screen: No symptoms or risks identified at this time. Initial Sepsis Screen: Does the patient meet any 2 criteria? No. Patient's initial sepsis screen is negative. Does the patient have a suspected source of infection? No. Patient's initial sepsis screen is negative. Risk Assessment: Do you want to hurt yourself or someone else? Patient reports no desire to harm self or others. Onset of symptoms was October 17, 2022 at 15:54. 15:54 Method Of Arrival: Ambulatory ld1 15:54 Acuity: ADONIS 4 ld1 Triage Assessment: 15:53 General: Appears in no apparent distress. comfortable, Behavior is calm, cooperative, ld1 appropriate for age. Pain: Denies pain. EENT: No signs and/or symptoms were reported regarding the EENT system. Neuro: Level of Consciousness is awake, alert, obeys commands, Oriented to person, place, time, situation. Cardiovascular: Capillary refill < 3 seconds Patient's skin is warm and dry. Respiratory: Airway is patent Respiratory effort is even, unlabored. GI: Abdomen is round non-distended, Reports diarrhea, nausea. : No signs and/or symptoms were reported regarding the genitourinary system. Derm: No signs and/or symptoms reported regarding the dermatologic system. Musculoskeletal: No signs and/or symptoms reported regarding the musculoskeletal system. 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 - Social history:: Smoking status: Patient denies any tobacco usage or history of. Patient uses alcohol, occasionally. Screenin:00 Abuse screen: Denies threats or abuse. Denies injuries from another. Nutritional kb3 screening: No deficits noted. Tuberculosis screening: No symptoms or risk factors identified. Fall Risk None identified. Assessment: 16:00 Reassessment: Patient appears in no apparent distress at this time. General: Appears in kb3 no apparent distress. ill, Behavior is calm, cooperative, appropriate for age, Received care of pt ambulatory from triage, AAO x4. Pt reports fever, cough, body aches, headache, sore throat, diarrhea x2 days.. 16:00 Pain: Complains of pain in head, chest, abdomen, right arm, left arm, right leg and kb3 left leg Pain does not radiate. Pain currently is 8 out of 10 on a pain scale. Quality of pain is described as aching, Pain began 2-3 days ago. GI: Reports diarrhea. Vital Signs: 15:53 Pulse 106; Resp 18; Temp 100.9(TE); Pulse Ox 99% on R/A; Weight 99.34 kg; Height 5 ft. ld1 11 in. (180.34 cm); Pain 0/10; 18:04 BP 116 / 80; Pulse 80; Resp 20; Temp 99; Pulse Ox 98% ; kb3 15:53 Body Mass Index 30.54 (99.34 kg, 180.34 cm) ld1 ED Course: 15:48 Patient arrived in ED. mr 15:50 Armando Murillo PA is PHCP. cp 15:50 Arthur Ace MD is Attending Physician. cp 15:53 Arm band placed on right wrist. ld1 15:54 Triage completed. ld1 15:56 Susan Franklin, GAY is Primary Nurse. kb3 16:00 Patient has correct armband on for positive identification. Bed in low position. Call kb3 light in reach. Warm blanket given. 16:00 No provider procedures requiring assistance completed. Patient did not have IV access kb3 during this emergency room visit. 16:10 COVID-19/FLU A+B Sent. kb3 16:22 Strep Sent. kb3 17:24 XRAY Chest Pa And Lat (2 Views) In Process Unspecified. EDMS Administered Medications: 16:22 Drug: Ibuprofen 800 mg Route: PO; kb3 18:05 Follow up: Response: No adverse reaction; Temperature is decreased kb3 Medication: 16:00 VIS not applicable for this client. kb3 Outcome: 17:55 Discharge ordered by . prasanna 18:04 Discharged to home ambulatory. kb3 18:04 Condition: stable 18:04 Discharge instructions given to patient, Instructed on discharge instructions, follow up and referral plans. medication usage, Demonstrated understanding of instructions, follow-up care, medications, Prescriptions given X 4. 18:05 Patient left the ED. kb3 Signatures: Dispatcher [employer] [facility] Saul Marya mr Armando Murillo, Brittanie Menon cp RN RN ld1 Susan Franklin, RN RN kb3
--- NOTE | 2022-10-17 17:56 | EDPHYS ---
Physician Documentation [facility] Name: Pablito Irwin Age: 27 yrs Sex: Female : 1995 Arrival Date: 10/17/2022 Time: 15:48 Bed 10 Private MD: ED Physician Arthur Ace HPI: 10/17 16:10 This 27 yrs old Black Female presents to ER via Ambulatory with complaints of Flu cp Symptoms. 16:10 The patient or guardian reports cough, that is intermittent, with productive sputum, cp that is green, with blood, flu symptoms, arthralgias, low-grade fever, myalgias. 16:10 Onset: The symptoms/episode began/occurred cough times 1 week with body aches, sore cp throat, fever starting 2 days ago. 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 - Social history:: Smoking status: Patient denies any tobacco usage or history of. Patient uses alcohol, occasionally. ROS: 16:15 Constitutional: Positive for body aches, fever, Negative for poor PO intake. cp 16:15 Eyes: Negative for injury, pain, redness, and discharge. cp 16:15 ENT: Positive for sore throat, Negative for drainage from ear(s), ear pain, difficulty swallowing, difficulty handling secretions. 16:15 Neck: Negative for pain with movement, pain at rest, stiffness. 16:15 Cardiovascular: Negative for chest pain. 16:15 Respiratory: Positive for cough, productive with blood, Negative for shortness of breath, wheezing. 16:15 Abdomen/GI: Negative for abdominal pain, vomiting, diarrhea, constipation. 16:15 Skin: Negative for rash. 16:15 Neuro: Positive for headache, Negative for altered mental status, weakness. 16:15 All other systems are negative. Exam: 16:20 Constitutional: The patient appears in no acute distress, alert, awake, non-toxic, well cp developed, well nourished. 16:20 Head/Face: Normocephalic, atraumatic. cp 16:20 Eyes: Periorbital structures: appear normal, Conjunctiva: normal, no exudate, no injection, Sclera: no appreciated abnormality, Lids and lashes: appear normal, bilaterally. 16:20 ENT: External ear(s): are unremarkable, Ear canal(s): are normal, clear, TM's: dullness, bilaterally, Nose: is normal, Mouth: Lips: moist, Oral mucosa: pink and intact, moist, Posterior pharynx: Airway: no evidence of obstruction, patent, Tonsils: with erythema, no enlargement, no exudate, swelling, is not appreciated, erythema, that is mild, exudate, is not appreciated. 16:20 Neck: ROM/movement: is normal, is supple, without pain, no range of motions limitations, no meningismus, Lymph nodes: no appreciated lymphadenopathy. 16:20 Chest/axilla: Inspection: normal. 16:20 Cardiovascular: Rate: tachycardic, Rhythm: regular. 16:20 Respiratory: the patient does not display signs of respiratory distress, Respirations: normal, no use of accessory muscles, no retractions, labored breathing, is not present, Breath sounds: are clear throughout, no decreased breath sounds, no stridor, no wheezing. 16:20 Abdomen/GI: Exam negative for discomfort, distension, guarding, Inspection: abdomen appears normal. 16:20 Back: pain, is absent, ROM is normal. Vital Signs: 15:53 Pulse 106; Resp 18; Temp 100.9(TE); Pulse Ox 99% on R/A; Weight 99.34 kg; Height 5 ft. ld1 11 in. (180.34 cm); Pain 0/10; 18:04 BP 116 / 80; Pulse 80; Resp 20; Temp 99; Pulse Ox 98% ; kb3 15:53 Body Mass Index 30.54 (99.34 kg, 180.34 cm) ld1 MDM: 16:03 Patient medically screened. cp 17:55 Data reviewed: vital signs, nurses notes, lab test result(s), radiologic studies, plain cp films. 17:55 Differential diagnosis: bronchitis, flu, pneumonia. Antibiotic administration: The cp patient is discharged and will get outpatient antibiotics, Zithromax, due to concern for pneumonia with reported hemoptysis. Test interpretation: by ED physician or midlevel provider: plain radiologic studies. Counseling: I had a detailed discussion with the patient and/or guardian regarding: the historical points, exam findings, and any diagnostic results supporting the discharge/admit diagnosis, lab results, radiology results, to return to the emergency department if symptoms worsen or persist or if there are any questions or concerns that arise at home. 10/17 15:59 Order name: COVID-19/FLU A+B; Complete Time: 17:45 kb3 10/17 17:45 Interpretation: Reviewed. cp 10/17 16:10 Order name: Strep; Complete Time: 17:04 cp 10/17 16:10 Order name: XRAY Chest Pa And Lat (2 Views); Complete Time: 17:51 cp 10/17 17:51 Interpretation: Report reviewed. 10/17 16:51 Order name: Throat Culture EDMS Administered Medications: 16:22 Drug: Ibuprofen 800 mg Route: PO; kb3 18:05 Follow up: Response: No adverse reaction; Temperature is decreased kb3 Disposition: 18:34 Co-signature as Attending Physician, Arthur Ace MD I agree with the assessment and rt plan of care. Disposition Summary: 10/17/22 17:55 Discharge Ordered Location: Home cp Problem: new cp Symptoms: have improved cp Condition: Stable cp Diagnosis - Influenza due to identified novel influenza A virus with other respiratory cp manifestations Followup: cp - With: Private Physician - When: 2 - 3 days - Reason: Recheck today's complaints Discharge Instructions: - Discharge Summary Sheet cp - Influenza, Adult cp Forms: - Medication Reconciliation Form cp - Thank You Letter cp - Antibiotic Education cp - Prescription Opioid Use cp Prescriptions: - Ibuprofen 800 mg Oral Tablet - take 1 tablet by ORAL route every 8 hours As needed take with food; 30 tablet; cp Refills: 0, Product Selection Permitted - Tamiflu 75 mg Oral Capsule - take 1 capsule by ORAL route every 12 hours for 5 days; 10 capsule; Refills: 0, cp Product Selection Permitted - Zithromax Z-Wilner 250 mg Oral Tablet - take 1 tablet by ORAL route as directed for 5 days Day 1 - take two (2) tablets cp one time. Day 2, 3, 4 , 5 take one (1) tablet once daily.; 6 tablet; Refills: 0, Product Selection Permitted - Bromfed DM 2-30-10 mg/5 mL Oral syrup - take 10 milliliter by ORAL route every 6 hours; 180 milliliter; Refills: 0, cp Product Selection Permitted Signatures: Dispatcher [employer] EDWA Armando Murillo PA PA cp Dibbern, Lauren, RN RN ld1 Susan Franklin RN RN kb3 Arthur Ace MD MD rt
[2022-10-17 18:11] VITALS: BP 116/80; TEMP 99; O2SAT 98
== END 2022-10-17 18:05 | disposition home or self-care (01) ==
LOC: ER 15:46
DX: J10.1 Influenza due to other identified influenza virus with other respiratory manifestations (principal); Z20.822 Contact with and (suspected) exposure to COVID-19
CPT/HCPCS: 87070; 87081; 0240U; 71046; 99284

== ENCOUNTER 2022-10-31 16:03 | Emergency (ER) | payer BC ==
--- OUTSIDE RECORDS SUMMARY | 2022-10-31 16:06 | XMS REPORT | Continuity of Care Document ---
:1995 Author Organization [facility] t Address [address] [place] [address] Care Team Providers Name Role Phone Pcp, Patient Does Not Have A Primary Care Physician [phone] AMBAR MILLER Attending Clinician Unavailable BECKI ZHAO Attending Clinician Unavailable LAB47 Attending Clinician Unavailable Yeni MARKETING AND COMMUNICATIONS OFFICERVianney Stokes Attending Clinician ANTIONE BECERRA Attending Clinician Unavailable Ivan Chau MD Attending Clinician IVAN CHAU Attending Clinician Unavailable Doctor Unassigned, [facility] Attending Clinician Unavailable Only, Ang Db Test Attending Clinician Unavailable EbrahiLeann Nowak Attending Clinician EBLEANN HEREDIA Attending Clinician Unavailable Omaghomi MARKETING AND COMMUNICATIONS OFFICER Omayemi Attending Clinician Lab, Adc Fam Pob I Attending Clinician Unavailable Makayla Wright Attending Clinician MAKAYLA MONROY Attending Clinician Unavailable Payers Payer Name Policy Type Policy Number Effective Date Expiration Date Elie tarango BCBS 2 [id number] 2022 00:00:00 [place] [id number] 2017 00:00:00 WOMEN Problems Condition Condition Condition [place] vaginal 00 [facility] delivery) delivery) Bran ch Normal Normal Disease Active Univers 2-28 ity of (single (single 00:00: [place] liveborn) liveborn) 00 [facility] Branch Group beta Group beta Disease Active Overview : Univers Strep Strep 2-28 [place] ity of positive positive 00:00: g of this Tor as 00 note Medical might be Branch different from the original. +GBS early in urine from results from [place]- scanned into EMR, will need IP tx 39 weeks 39 weeks Disease Active Unive rs gestation gestation 2-27 ity of of of 00:00: [place] 00 [facility] Branch Labor and Labor and Disease [...] Active Univers ALLERGIE Class ity of S [facility] Social History Social Habit Start Date Stop Date Quantity Comments Source Exposure to 2022-05-12 2022-05-22 Yes [facility] SARS-CoV-2 00:00:00 19:44:00 [facility] (event) [place] Alcohol intake 2022-05-22 2022-05-22 0 /d University of 00:00:00 00:00:00 [facility] Tobacco use and 2016-12-25 2016-12-25 Smokeless tobacco Un iversity of exposure 00:00:00 00:00:00 non-user [facility] Sex Ass[birth year] At [birth year] Universit y of 00:00:00 00:00:00 [facility] Smoking Status Start Date Stop Date Source Never smoked tobacco [facility] Medications Ordered Filled Start Stop Current Ordering Indication Dosage Frequency Signature Comments Components Source Medication Medication Date Date Medication? Clinician (SIG) Name Name bromphenira Yes [id number] 5mL Take 5 mL Univers mine-pseudo 6-27 by mouth 4 it y of ephedrine-D 00:00: (four) Brianna Rush (BROMFED 00 times Medical DM) 2-30-10 daily as Bran ch mg/5 mL needed for syrup Congestion /Allergies or Cough. albuterol Yes [id number] 2{puff} Inhale 2 Univers 90 6-27 Puffs ity of mcg/actuati 00:00: every 6 Tor as on inhaler 00 (six) Medical hours as Branch needed for Wheezing, Bronchospa sm or Chest tightness. bromphenira Yes [id number] 5mL Take 5 mL Univers mine-pseudo 6-27 by mouth 4 it y of ephedrine-D 00:00: (four) Brianna s M (BROMFED 00 times Medical DM) 2-30-10 daily as Bran ch mg/5 mL needed for syrup Congestion /Allergies or Cough. albuterol Yes [id number] 2{puff} Inhale 2 Univers 90 6-27 Puffs [...] Immunizations Ordered Filled Immunization Date Status Comments [facility] e Immunization Name Name HPV9 2017-01-24 Completed University of 00:00:00 [facility]9 2017-01-24 Completed University of 00:00:00 [facility] HPV9 2017-01-24 Completed University of 00:00:00 [facility] HPV9 2017-01-24 Completed University of 00:00:00 [facility] HPV9 2017-01-24 Completed University of 00:00:00 [facility] HPV9 2017-01-24 Completed University of 00:00:00 [facility] TDAP 2016-12-25 Completed University of 00:00:00 [facility] TDAP 2016-12-25 Completed University of 00:00:00 [facility] TDAP 2016-12-25 Completed University of 00:00:00 [facility] TDAP 2016-12-25 Completed University of 00:00:00 [facility] TDAP 2016-12-25 Completed University of 00:00:00 [facility] TDAP 2016-12-25 Completed University of 00:00:00 [facility] Influenza Virus 2016-09-26 Completed Universit y of Vaccine 00:00:00 [facility] Influenza Virus 2016-09-26 Completed Universit y of Vaccine 00:00:00 [facility] Influenza Virus 2016-09-26 Completed Universit y of Vaccine 00:00:00 [facility] Influenza Virus 2016-09-26 Completed Universit y of Vaccine 00:00:00 [facility] Influenza Virus 2016-09-26 Completed Universit y of Vaccine 00:00:00 [facility] Influenza Virus 2016-09-26 Completed Universit y of Vaccine 00:00:00 [facility] Vital Signs Vital Name Observation Time Observation Value Comments Source Systolic blood 2022-05-23 00:51:00 127 mm[Hg] Univer sity of pressure [facility] Diastolic blood 2022-05-23 00:51:00 87 mm[Hg] Unive rsity of [facility] Heart rate 2022-05-23 00:47:00 81 /min [facility] Body temperature 2022-05-23 00:47:[address] [facility] Respiratory rate 2022-05-23 00:47:00 18 /min [facility] Body height 2022-05-23 00:47:00 180.3 cm [facility] Body weight 2022-05-23 00:47:00 99.247 kg [facility] BMI 2022-05-23 00:47:00 30.52 kg/m2 [facility] Oxygen saturation in 2022-05-23 00:47:00 100 /min [facility] blood by [facility] Pulse oximetry Branch Procedures Procedure Date / Time Performed Performing Clinician [facility] e CONSENT/REFUSAL FOR 2022-05-23 00:43:43 Doctor Unassigned, No [facility] DIAGNOSIS AND Name Medical Branch TREATMENT ASSIGNMENT OF BENEFITS 2022-05-23 00:43:32 Doctor Unassigned, No [facility] Encounters Start End Encounter Admission Attending Care Care Encounter Source Date/Time Date/Time Type Type Clinicians Facility Department ID 2022-10-23 2022-10-23 Outpatient MELISSA MILLER [id number] Melissa 15:15:00 15:15:00 HOMAYOSSI Bojorquezol fidencio 2022-09-18 2022-09-18 Outpatient MELISSA ZHAO [id number] Melissa 00:00:00 00:00:00 BECKI guidry 2022-09-15 2022-09-15 Outpatient MELISSA ZHAO [id number] Melissa 00:00:00 00:00:00 BECKI guidry 2022-09-14 2022-09-14 Outpatient MELISSA ZHAO MELISSA [id number] Melissa 00:00:00 00:00:00 BECKI Seyb old 2022-09-13 2022-09-13 Outpatient LAB47 MELISSA MELISSA [id number] Melissa 09:40:00 09:40:00 Seybol d 2022-09-13 2022-09-13 Outpatient MELISSA ZHAO MELISSA [id number] Melissa 08:30:00 08:30:00 BECKI Seyb old 2022-06-09 2022-06-09 [place] [id number] [facility] 00:00:00 00:00:00 [facility] [id number] i ty of [place] [id number] Tor as TEDDY?BLEA [id number] [address] OFFICE [facility] 2022-05-30 2022-05-30 Outpatient HERNAN MELISSA TIWARI [id number] Melissa 10:45:00 10:45:00 ANTIONE Seybol d 2022-05-22 2022-05-22 [facility] 1.2.840. [id number] Univers 19:40:00 20:00:00 Corey Chau [facility] [id number] ity of [place] [id number] Tor as TEDDY?BLEA [id number] [address] OFFICE [facility] 2022-05-22 2022-05-22 [facility] [id number] Univers 19:40:00 19:40:00 IVAN ity [facility] 2022-05-22 2022-05-22 Orders Doctor MURCIA [id number] Univers 00:00:00 00:00:00 Only Unassigned, MEAGHAN [id number] [facility] [id number] Tor as [id number] [address] 2022-02-19 2022-02-19 Outpatient PRIV PRIV [id number] [facility] 10:13:00 10:13:00 [id number] Medica l 2022-02-142022-02-14 Outpatient PRIV PRIV [id number] [facility] 05:49:00 05:49:00 [id number] Medica l 2021-08-18 2021-08-18 Laboratory Only, Ang Db Test [facility] 1.2.8 40.114 [id number] Univers 13:13:23 13:28:23 Only Leann [facility] [id number] ity of [place] [id number] Tor as Teddy?Blea [id number] Sc dical aliceey [address] [facility] 2021-08-18 2021-08-18 Outpatient R MARY ANN [facility] [id number] Univers 13:15:00 13:15:00 LEANN ity [facility] 2020-06-08 2020-06-08 Telephone DIVINA Shea [id number] 00:00:00 00:00:00 zhanna MEAGHAN [id number] HOSPITAL 4.2.7.2.686 [id number] 2020-06-08 2020-06-08 Telephone SavitamarcoDIVINA couch [id number] [facility] 00:00:00 00:00:00 Ommiroslava MEAGHAN [id number] it y of HOSPITAL [id number] Tor as [phone] [address] 2020-06-06 2020-06-06 Laboratory Lab, [facility] [id number] 09:55:39 10:15:39 Only Fam Pob I Health [id number] [place] [id number] Professio [id number] nal [facility] [address] 2020-06-06 2020-06-06 Laboratory Lab, [facility] Fam Pob I [facility] 1.2. [id number] [facility] 09:55:39 10:15:39 Only Anene, Makayla Health [id number] ity of [place] [id number] Tor as Professio [id number] Sc dical nal [address] 2020-06-06 2020-06-06 Outpatient R [facility] [id number] Univers 10:00:00 10:00:00 rudy [facility] 2020-05-26 2020-05-26 Outpatient R ELIANA [facility] [id number] Univers 16:20:00 16:20:00 MAKAYLA grant [facility] Results This patient has no known results.
--- NOTE | 2022-10-31 16:38 | EDPHYS ---
Physician Documentation [facility] Name: Pablito Irwin Age: 27 yrs Sex: Female : 1995 Arrival Date: 10/31/2022 Time: 16:06 Bed 10 Private MD: ED Physician Rodriguez Pierce HPI: 10/31 16:49 This 27 yrs old Black Female presents to ER via Ambulatory with complaints of Foot Pain.snw 16:49 The patient presents with pain, that is acute. The complaints affect the left lateral snw ankle and left Achilles. Context: The problem was sustained at a sports field or court, resulted from a repetitive motion, lifting, the patient can partially bear weight, the patient is able to ambulate, with mild difficulty. Onset: The symptoms/episode began/occurred acutely. Associated signs and symptoms: The patient has no apparent associated signs or symptoms. Severity of symptoms: At their worst the symptoms were moderate. The patient has not experienced similar symptoms in the past. The patient has not recently seen a physician. 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 - Social history:: Smoking status: Patient denies any tobacco usage or history of. ROS: 16:44 Constitutional: Negative for fever, chills, and weight loss, Eyes: Negative for injury, snw pain, redness, and discharge, ENT: Negative for injury, pain, and discharge, Neck: Negative for injury, pain, and swelling, Cardiovascular: Negative for chest pain, palpitations, and edema, Respiratory: Negative for shortness of breath, cough, wheezing, and pleuritic chest pain, Abdomen/GI: Negative for abdominal pain, nausea, vomiting, diarrhea, and constipation, Back: Negative for injury and pain, : Negative for injury, bleeding, discharge, and swelling, Skin: Negative for injury, rash, and discoloration, Neuro: Negative for headache, weakness, numbness, tingling, and seizure, Psych: Negative for depression, anxiety, suicide ideation, homicidal ideation, and hallucinations. 16:44 MS/extremity: Positive for decreased range of motion, tenderness, of the left achilles tenderness. Exam: 16:43 Constitutional: This is a well developed, well nourished patient who is awake, alert, snw and in no acute distress. Head/Face: Normocephalic, atraumatic. Eyes: Pupils equal round and reactive to light, extra-ocular motions intact. Lids and lashes normal. Conjunctiva and sclera are non-icteric and not injected. Cornea within normal limits. Periorbital areas with no swelling, redness, or edema. Neck: Trachea midline, no thyromegaly or masses palpated, and no cervical lymphadenopathy. Supple, full range of motion without nuchal rigidity, or vertebral point tenderness. No Meningismus. Chest/axilla: Normal chest wall appearance and motion. Nontender with no deformity. No lesions are appreciated. Cardiovascular: Regular rate and rhythm with a normal S1 and S2. No gallops, murmurs, or rubs. Normal PMI, no JVD. No pulse deficits. Respiratory: Lungs have equal breath sounds bilaterally, clear to auscultation and percussion. No rales, rhonchi or wheezes noted. No increased work of breathing, no retractions or nasal flaring. Abdomen/GI: Soft, non-tender, with normal bowel sounds. No distension or tympany. No guarding or rebound. No evidence of tenderness throughout. Back: No spinal tenderness. No costovertebral tenderness. Full range of motion. Skin: Warm, dry with normal turgor. Normal color with no rashes, no lesions, and no evidence of cellulitis. Neuro: Awake and alert, GCS 15, oriented to person, place, time, and situation. Cranial nerves II-XII grossly intact. Motor strength 5/5 in all extremities. Sensory grossly intact. Cerebellar exam normal. Normal gait. Psych: Awake, alert, with orientation to person, place and time. Behavior, mood, and affect are within normal limits. 16:43 Musculoskeletal/extremity: Extremities: grossly normal except: noted in the left achilles, +Fitch: decreased ROM, tenderness, ROM: limited active range of motion due to pain, limited passive range of motion due to pain, Circulation is intact in all extremities. Sensation intact. Vital Signs: 16:20 BP 132 / 77; Pulse 84; Resp 16; Temp 98.6; Pulse Ox 98% ; Weight 95.25 kg; Height 5 ft. ss 11 in. (180.34 cm); Pain 8/10; 16:20 Body Mass Index 29.29 (95.25 kg, 180.34 cm) MDM: 16:24 Patient medically screened. snw 16:45 Data reviewed: vital signs, nurses notes. Data interpreted: Pulse oximetry: on room air snw is 98 %. Interpretation: normal. Counseling: I had a detailed discussion with the patient and/or guardian regarding: the historical points, exam findings, and any diagnostic results supporting the discharge/admit diagnosis, the need for outpatient follow up, to return to the emergency department if symptoms worsen or persist or if there are any questions or concerns that arise at home. Special discussion: Based on the history and exam findings, there is no indication for further emergent testing or inpatient evaluation. I discussed with the patient/guardian the need to see the orthopedic surgeon for further evaluation of the symptoms. I discussed with the patient/guardian the need to see the primary care provider for further evaluation of the symptoms. 10/31 16:37 Order name: Walking boot; Complete Time: 17:01 snw Administered Medications: 17:01 Drug: traMADol 50 mg Route: PO; db 17:02 Follow up: Response: No adverse reaction db Disposition: 18:46 Co-signature as Attending Physician, Rodriguez Pierce MD I agree with the assessment and kdr plan of care. Disposition Summary: 10/31/22 16:37 Discharge Ordered Location: Home snw Condition: Stable snw Diagnosis - Achilles tendinitis, left leg snw Followup: snw - With: Emergency Department - When: As needed - Reason: Worsening of condition Followup: snw - With: Private Physician - When: 2 - 3 days - Reason: Recheck today's complaints, Continuance of care, Re-evaluation by your physician Discharge Instructions: - Discharge Summary Sheet snw - Achilles Tendinitis snw - Heat Therapy snw - Walking Boot, Adult snw Forms: - Medication Reconciliation Form snw - Thank You Letter snw - Antibiotic Education snw - Prescription Opioid Use snw Prescriptions: - Tramadol 50 mg Oral Tablet - take 1 tablet by ORAL route every 8 hours as needed; 12 tablet; Refills: 0, snw Product Selection Permitted Signatures: Rodriguez Pierce MD MD kdr Waters, Shelly, FNP-C RAMPMAN-Kevinw Tiara Jesus RN RN Godoy, Johana, RN RN db
--- NOTE | 2022-10-31 16:38 | ER ---
Nurse's Notes [facility] Name: Pablito Irwin Age: 27 yrs Sex: Female : 1995 Arrival Date: 10/31/2022 Time: 16:06 Bed 10 Private MD: Diagnosis: Achilles tendinitis, left leg Presentation: 10/31 16:20 Chief complaint: Patient states: I was at the gym Sunday squatting and i felt something ss in my left heel and ankle pull so I stopped my workout but yesterday put heels on for work and it was so painful and i have just been in pain since. Coronavirus screen: Vaccine status: Patient reports receiving the 2nd dose of the covid vaccine. Client denies travel out of the [place] in the last 14 days. Ebola Screen: Patient negative for fever greater than or equal to 101.5 degrees Fahrenheit, and additional compatible Ebola Virus Disease symptoms Patient denies exposure to infectious person. Patient denies travel to an Ebola-affected area in the 21 days before illness onset. Initial Sepsis Screen: Does the patient meet any 2 criteria? No. Patient's initial sepsis screen is negative. Does the patient have a suspected source of infection? No. Patient's initial sepsis screen is negative. Risk Assessment: Do you want to hurt yourself or someone else? Patient reports no desire to harm self or others. Onset of symptoms was October 29, 2022. 16:20 Method Of Arrival: Ambulatory ss 16:20 Acuity: ADONIS 4 ss Triage Assessment: 16:22 General: Appears in no apparent distress. uncomfortable, well groomed, well developed, ss well nourished, Behavior is calm, cooperative, appropriate for age. Pain: Complains of pain in left foot and left leg. 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 - Social history:: Smoking status: Patient denies any tobacco usage or history of. Screenin:30 Abuse screen: Denies threats or abuse. Denies injuries from another. Nutritional db screening: No deficits noted. Tuberculosis screening: No symptoms or risk factors identified. Fall Risk None identified. No fall in past 12 months (0 pts). No secondary diagnosis (0 pts). No IV (0 pts). Ambulatory Aid- None/Bed Rest/Nurse Assist (0 pts). Gait- Normal/Bed Rest/Wheelchair (0 pts) Mental Status- Oriented to own ability (0 pts). Total Smith Fall Scale indicates No Risk (0-24 pts). Assessment: 16:30 Reassessment: Patient appears in no apparent distress at this time. Patient and/or db family updated on plan of care and expected duration. Pain level reassessed. Patient is alert, oriented x 3, equal unlabored respirations, skin warm/dry/pink. left heel pain. General: Appears in no apparent distress. comfortable. Pain: Complains of pain in left foot and left leg. Neuro: No deficits noted. Level of Consciousness is awake, alert, obeys commands, Oriented to person, place, time, situation, Appropriate for age. Respiratory: No deficits noted. Airway is patent Respiratory effort is even, unlabored, Respiratory pattern is regular, symmetrical. GI: No deficits noted. No signs and/or symptoms were reported involving the gastrointestinal system. 17:03 Reassessment: Patient appears in no apparent distress at this time. No changes from db previously documented assessment. Patient and/or family updated on plan of care and expected duration. Pain level reassessed. Patient is alert, oriented x 3, equal unlabored respirations, skin warm/dry/pink. Vital Signs: 16:20 BP 132 / 77; Pulse 84; Resp 16; Temp 98.6; Pulse Ox 98% ; Weight 95.25 kg; Height 5 ft. ss 11 in. (180.34 cm); Pain 8/10; 16:20 Body Mass Index 29.29 (95.25 kg, 180.34 cm) ED Course: 16:06 Patient arrived in ED. mr 16:11 Celine [facility]lero [facility]-C [facility] snw 16:11 Rodriguez Pierce MD is Attending Physician. snw 16:22 Triage completed. ss 16:22 Arm band placed on right wrist. ss 16:29 Johana Godoy, GAY is Primary Nurse. db 17:02 Patient did not have IV access during this emergency room visit. boot applied. db 17:03 Patient has correct armband on for positive identification. Bed in low position. Call db light in reach. Side rails up X 1. 17:03 No provider procedures requiring assistance completed. db Administered Medications: 17:01 Drug: traMADol 50 mg Route: PO; db 17:02 Follow up: Response: No adverse reaction db Medication: 17:03 VIS not applicable for this client. db Outcome: 16:37 Discharge ordered by MD. oglesby 17:03 Discharged to home ambulatory. db 17:03 Condition: stable 17:03 Discharge instructions given to patient, Instructed on discharge instructions, Demonstrated understanding of instructions, follow-up care, Prescriptions given X 1. 17:03 Patient left the ED. db Signatures: Celine Roblero, REGIONAL TRAINER-C REGIONAL TRAINER-Csnw Marya Hughes mr Tiara Jesus, RN RN Johana Godoy RN RN db
[2022-10-31] MEDS ORDERED: TRAMADOL HCL 50 MG TAB ONE (16:52)
[2022-10-31 21:49] VITALS: BP 132/77; TEMP 98.6; O2SAT 98
== END 2022-10-31 17:03 | disposition home or self-care (01) ==
LOC: ER 16:03
DX: M76.62 Achilles tendinitis, left leg (principal)
CPT/HCPCS: 99283

== ENCOUNTER 2023-10-12 01:56 | Emergency (ER) | payer BC, SELFPAY ==
--- OUTSIDE RECORDS SUMMARY | 2023-10-12 02:01 | XMS REPORT | Continuity of Care Document ---
:1995 Author Organization [facility] t Address [address] [place] [address] Care Team Providers Name Role Phone Pcp, Patient Does Not Have A Primary Care Physician +[phone] Leann Chappell Attending Clinician Unknown, Attending Attending Clinician Unavailable LEANN MITTAL Attending Clinician Unavailable UNKNOWN, ATTENDING Attending Clinician Unavailable Monica Attending Clinician Unavailable Mirta Attending Clinician Unavailable AMBAR MILLER Attending Clinician Unavailable BECKI ZHAO Attending Clinician Unavailable LAB47 Attending Clinician Unavailable Doctor Unassigned, [place] Attending Clinician Unavailable Vianney Monet Attending Clinician ANTIONE BECERRA Attending Clinician Unavailable Ivan Chau MD Attending Clinician IVAN CHAU Attending Clinician Unavailable Only, Ang Db Test Attending Clinician Unavailable Omaghomi SENSOR SPECIALIST Omayemi Attending Clinician Lab, Adc Fam Pob I Attending Clinician Unavailable Makayla Wright Attending Clinician MAKAYLA DIAZ Attending Clinician Unavailable Monica Admitting Clinician Unavailable Mirta Admitting Clinician Unavailable Payers Payer Name Policy Type Policy Number Effective Date Expiration Date S em[place] [id number] 2020 2022 [place] (PPO) 00:00:00 00:00:00 BCBS 2 [id number] 2022 00:00:00 [place] [id number] 2017 WOMEN 00:00:00 Problems Condition Condition Condition Status Onset Resolution Last Treating Co mments Source Name Details Category Date Date Treatment Clinician Date First First Disease Active Univers degree degree 3-01 [place] of lac[place] Medical perineum perineum Branch during during delivery, delivery, First First Disease Active Univers degree degree 3-01 [place] of laceration [place] [...] +GBS early in urine from results from [place]- scanned into EMR, will need IP tx Disease Active Univers (normal (normal 2-28 ity of spontaneou spontaneou [place] vaginal s vaginal 00 Medi elana delivery) delivery) Bran ch Normal Normal Disease Active Univers 2-28 ity of (single (single 00:00: [place] liveborn) liveborn) 00 [facility] Branch 39 weeks 39 weeks Disease Active Unive rs gestation gestation 2-27 ity of of of 00:00: [place] 00 [facility] Branch Labor and Labor and Disease Active Uni vers delivery delivery 2-27 [place] of indication indication [place] for care for care 00 Medica l or or Branch interventi interventi on on Labor and Labor and Disease Active Uni vers delivery delivery 01-22 [place] of indication indication [place] for [place] for care 00 Medica l or or Branch interventi interventi on on Anemia of Anemia of Disease Active Uni vers mother in mother in 2-14 [place]y of , , [place] antepartum antepartum 00 Me dical Branch Anemia of Anemia of Disease Active Uni vers mother in mother in 2-14 [place]y of , , [place] antepartum antepartum 00 Me dical Branch Supervisio Supervisio Disease Active Overview : Univers n of high n of high 12-25 Formattin i ty of risk risk 00:00: g of this [place] , , 00 note Me dical antepartum antepartum might be Branch different from the original. See external records for records Allergies, Adverse Reactions, Alerts Allergy Allergy Status Severity Reaction(s) Onset Inactive Treating Comm ents Source Name Type Date Date Clinician NO KNOWN Drug Active Univers ALLERGIE Class ity of S [facility] Social History Social Habit Start Date Stop Date Quantity Comments Source Sexual orientation [facility] Exposure to 2022-11-27 2022-12-[address] [facility] SARS-CoV-2 (event) 00:00:00 15:42:00 [facility] History of Social 2022-05-22 2022-05-22 Univers ity of function 00:00:00 00:00:00 [facility] Alcohol intake 2017-01-24 2017-01-24 0 /d University 00:00:00 00:00:00 [facility] Tobacco use and 2016-12-25 2016-12-25 Smokeless Universit y of exposure 00:00:00 00:00:00 tobacco non-user [facility] Sex Ass[birth year] Universit y of 00:00:00 00:00:00 [facility] Smoking Status Start Date Stop Date Source Never smoked tobacco [facility] Medications Ordered Filled Start Stop Current Ordering Indication Dosage Frequency Signature Comments Components Source Medication Medication Date Date Medication? Clinician (SIG) Name Name dexamethaso 2022- No [id number] 10mg U nivers ne 12-07 ity of (DECADRON) 23:00: 22:13 [place] injection 00 :00 Medical 10 mg Branch penicillin 2022- No [id number] 1.210 U nivers g 12-07 ity of benzathine 23:00: 22:11 [place] (BICILLIN 00 :00 Medical L-A) Branch injection 1.2 Million Units penicillin 2022- No [id number] 1.210 1.2 U nivers g 12-07 Million ity of benzathine 23:00: 22:11 [place] (BICILLIN 00 :00 Intramuscu Medi elana L-A) lar, ONCE, Branch injection 1 dose, On 1.2 Million Arely Units 12/07/22 at 1700, CRISSY
Re ason for Anti-Infec tive: Documented Infection< br>Documen kaylene Infection Site: HEENT
D uration of Therapy: Other (see Comments) dexamethaso 2022- No [id number] 10mg 10 mg, Univers ne 12-07 Intramuscu ity of (DECADRON) 23:00: 22:13 lar, ONCE, [place] injection 00 :00 1 dose, On Medi elana 10 mg Arely Branch 12/07/22 at 1700, Routine bromphenira Yes [id number] 5mL Take 5 mL Univers mine-pseudo 6-27 by mouth 4 it y of ephedrine-D 00:00: (four[place] (BROMFED 00 times Medical DM) 2-30-10 daily as Bran ch mg/5 mL needed for syrup Congestion /Allergies or Cough. albuterol Yes [id number] 2{puff} Inhale 2 Univers 90 6-27 Puffs ity of mcg/actuati 00:00: every 6 Tor as on inhaler 00 (six) Medical hours as Branch needed for Wheezing, Bronchospa sm or Chest tightness. bromphenira Yes [id number] 5mL Take 5 mL Univers mine-pseudo 6-27 by mouth 4 it y of ephedrine-D 00:00: (four[place] (BROMFED 00 times Medical DM) 2-30-10 daily as Bran ch mg/5 mL needed for syrup Congestion /Allergies or Cough. albuterol Yes [id number] 2{puff} Inhale 2 Univers 90 6-27 Puffs ity of mcg/actuati 00:00: every 6 Tor as on inhaler 00 (six) Medical hours as Branch needed for Wheezing, Bronchospa sm or Chest tightness. bromphenira Yes [id number] 5mL Take 5 mL Univers mine-pseudo 6-27 by mouth 4 it y of ephedrine-D 00:00: (four[place] (BROMFED 00 times Medical DM) 2-30-10 daily as Bran ch mg/5 mL needed for syrup Congestion /Allergies or Cough. albuterol Yes [id number] 2{puff} Inhale 2 Univers 90 6-27 Puffs ity of mcg/actuati 00:00: every 6 Tor as on inhaler 00 (six) Medical hours as Branch needed for Wheezing, Bronchospa sm or Chest tightness. bromphenira Yes [id number] 5mL Take 5 mL Univers mine-pseudo 6-27 by mouth 4 it y of ephedrine-D 00:00: (four[place] (BROMFED 00 times Medical DM) 2-30-10 daily as Bran ch mg/5 mL needed for syrup Congestion /Allergies or Cough. albuterol Yes [id number] 2{puff} Inhale 2 Univers 90 6-27 Puffs ity of mcg/actuati 00:00: every 6 Tor as on inhaler 00 (six) Medical hours as Branch needed for Wheezing, Bronchospa sm or Chest tightness. docusate 2017- Yes 240mg Take 1 Univer s calcium [...] tablet by ity of tablet 00:00: mouth 00 every 6 Medical (six) Branch hours as needed for Pain (scale 1-3) or Pain (scale 4-6). Take with food or milk. 2017-0 Yes 1{tbl} Take 1 Unive rs vitamin 3-01 tablet by ity of w/FA tablet 00:00: mouth 00 daily. Medical Branch Immunizations Ordered Filled Date Status Comments Source Immunization Name Immunization Name HPV9 2017-01-24 Completed University of 00:00:00 [facility] Branch HPV9 2017-01-24 Completed University of 00:00:00 [facility] Branch HPV9 2017-01-24 Completed University of 00:00:00 [facility] Branch HPV9 2017-01-24 Completed University of 00:00:00 [facility] Branch HPV9 2017-01-24 Completed University of 00:00:00 [facility] Branch HPV9 2017-01-24 Completed University of 00:00:00 [facility] HPV9 2017-01-24 Completed University of 00:00:00 [facility] TDAP 2016-12-25 Completed University of 00:00:00 [facility] TDAP 2016-12-25 Completed University of 00:00:00 [facility] TDAP 2016-12-25 Completed University of 00:00:00 [facility] TDAP 2016-12-25 Completed University of 00:00:00 [facility] TDAP 2016-12-25 Completed University of 00:00:00 [facility] TDAP 2016-12-25 Completed University of 00:00:00 [facility] TDAP 2016-12-25 Completed University of 00:00:00 [facility] Influenza Virus 2016-09-26 Completed Universit y of Vaccine 00:00:00 [facility] Influenza Virus 2016-09-26 Completed Universit y of Vaccine 00:00:00 [facility] Influenza Virus 2016-09-26 Completed Universit y of Vaccine 00:00:00 [facility] Influenza Virus 2016-09-26 Completed Universit y of Vaccine 00:00:00 [facility] Influenza Virus 2016-09-26 Completed Universit y of Vaccine 00:00:00 [facility] Influenza Virus 2016-09-26 Completed Universit y of Vaccine 00:00:00 [facility] Influenza Virus 2016-09-26 Completed Universit y of Vaccine 00:00:00 [facility] Influenza Virus Unknown Completed Universit y of Vaccine [facility] TDAP Unknown Completed [facility] HPV9 Unknown Completed [facility] Influenza Virus Unknown Completed Universit y of Vaccine [facility] TDAP Unknown Completed [facility] HPV9 Unknown Completed [facility] Vital Signs Vital Name Observation Time Observation Value Comments Source Systolic blood 2022-12-07 21:56:00 110 mm[Hg] Univer sity of pressure [facility] Diastolic blood 2022-12-07 21:56:00 66 mm[Hg] Unive rsity of pressure [facility] Heart rate 2022-12-07 21:56:00 73 /min Universi ty of [facility] Body temperature 2022-12-07 21:56:00 [facility].11 [place] [facility] Res[facility] rate 2022-12-07 21:56:00 16 /min Univ ersity [facility] Body height 2022-12-07 21:56:00 180.3 cm Universi ty of [facility] Body weight 2022-12-07 21:56:00 101.197 kg Universi ty of [facility] BMI 2022-12-07 21:56:00 31.12 kg/m2 Universi ty of [facility] Oxygen saturation in 2022-12-07 21:56:00 99 /min [facility] Arterial blood by [facility] Pulse oximetry Branch Systolic blood 2022-05-23 00:51:00 127 mm[Hg] Univer sity of [facility] Diastolic blood 2022-05-23 00:51:00 87 mm[Hg] Unive rsity of [facility] Heart rate 2022-05-23 00:47:00 81 /min Universi ty of [facility] Body temperature 2022-05-23 00:47:00 36.61 [place] Univ ersity [facility] Respiratory rate 2022-05-23 00:47:00 18 /min Univ ersity [facility] Body height 2022-05-23 00:47:00 180.3 cm Universi ty of [place] [facility] [place] Body weight 2022-05-23 00:47:00 99.247 kg Universi ty of [place] [facility] [place] BMI 2022-05-23 00:47:00 30.52 kg/m2 Universi ty of [facility] Oxygen saturation in 2022-05-23 00:47:00 100 /min University Arterial blood by [facility] Pulse oximetry Branch Procedures Procedure Date / Time Performed Performing Clinician Leta bagley POCT MOLECULAR FLU 2022-12-07 21:54:00 Unknown, Attending Avi orellana [facility] POCT MOLECULAR STREP 2022-12-07 21:51:00 Unknown, Attending Samira [facility] CONSENT/REFUSAL FOR 2022-05-23 00:43:43 Doctor Unassigned, No [facility] DIAGNOSIS AND Name Medical Branch TREATMENT ASSIGNMENT OF BENEFITS 2022-05-23 00:43:32 Doctor Unassigned, No [facility] Encounters Start End Encounter Admission Attending Care Care Encounter Source Date/Time Date/Time Type Type Clinicians Facility Department ID 2022-12-07 2022-12-07 Urgent Leann Mittal [facility] [id number] Univers 15:40:00 16:00:00 Care Unknown, Attending [place] [id number] [facility] [id number] Tor as TEDDY?BLEA [id number] [facility] [address] MEDICAL OFFICE BUILDING 2022-12-07 2022-12-07 Outpatient R EBGIOVANNA, [facility] [id number] Univers 15:40:00 15:40:[address] [facility] 2022-12-07 2022-12-07 Outpatient R UNKNOWN, [facility] [id number] Univers 13:00:00 13:00:[address] [facility] 2022-11-02 2022-11-02 Outpatient FOG_Burke_R AOSM AOSM [id number] [facility] 00:00:00 00:00:00 Melecio [id number] [facility] 2022-11-01 2022-11-01 Outpatient FOG_Burke_R AOSM AOSM [id number] [place] 00:00:00 00:00:00 Melecio [id number] [facility] 2022-10-31 2022-10-31 Outpatient FOG_Allen_J AOSM AOSM [id number] [place] 00:00:00 00:00:00 Geoffrey [id number] [facility] 2022-10-23 2022-10-23 Outpatient SIDIQ, MELISSA TIWARI [id number] Melissa 15:15:00 15:15:00 HOMAYON Seybol d 2022-09-18 2022-09-18 Outpatient ZHAO, MELISSA TIWARI [id number] Melissa 00:00:00 00:00:00 BECKI Seyb old 2022-09-15 2022-09-15 Outpatient ZHAO, MELISSA TIWARI [id number] Melissa 00:00:00 00:00:00 BECKI Seyb old 2022-09-14 2022-09-14 Outpatient ZHAO, MELISSA TIWARI [id number] Melissa 00:00:00 00:00:00 BECKI Seyb old 2022-09-13 2022-09-13 Outpatient LAB47 MELISSA TIWARI [id number] Melissa 09:40:00 09:40:00 Seybol d 2022-09-13 2022-09-13 Outpatient ZHAO, MELISSA TIWARI [id number] Melissa 08:30:00 08:30:00 BECKI Seyb old 2022-06-10 2022-06-10 Patient Doctor [facility] [id number] Univers 00:00:00 00:00:00 Secure Msg Unassigned, HEALTH [id number] ity of [place] [id number] Tor as TEDDY?BLEA [id number] [address] OFFICE [facility] 2022-06-09 2022-06-09 Telephone Yeni [facility] [id number] Univers 00:00:00 00:00:00 [facility] [id number] i ty of [place] [id number] Tor as TEDDY?BLEA [id number] Va dical [address] OFFICE [facility] 2022-05-30 2022-05-30 Outpatient MELISSA BECERRA [id number] Melissa 10:45:00 10:45:00 ANTIONE Seybol d 2022-05-22 2022-05-22 Urgent Vianney Jaime [facility] 1.2.840. [id number] Univers 19:40:00 20:00:00 Care Ivan Chau [employer] [id number] ity of [facility] 4.2.7.2.686 Tor as TEDDY?BLEA [id number] [address] MEDICAL OFFICE [facility] 2022-05-22 2022-05-22 Outpatient R CORNELL [facility] [id number] Univers 19:40:00 19:40:00 IVAN jaret [facility] 2022-05-22 2022-05-22 Orders Doctor DIVINA [id number] Univers 00:00:00 00:00:00 Only Unassigned, MEAGHAN [id number] ity of [place] [facility] 4.2.7.2.686 Tor as [id number] [address] 2022-02-19 2022-02-19 Outpatient PRIV PRIV [id number] [facility] 10:13:00 10:13:00 [id number] Medica l 2022-02-14 2022-02-14 Outpatient PRIV PRIV [id number] [facility] 05:49:00 05:49:00 [id number] Medica l 2021-08-18 2021-08-18 Laboratory Only, Ang Db Test [facility] 1.2.8 40.114 [id number] Univers 13:13:23 13:28:23 Only Kyrie TV Pixie [id number] ity of [place] 4.2.7.2.686 Tor as Teddy?Blea [id number] [address] Medical Office [facility] 2021-08-18 2021-08-18 Outpatient R KYRIE [facility] [id number] Univers 13:15:00 13:15:00 LEANN rudy [facility] 2020-06-08 2020-06-08 Telephone DIVINA Shea2.840.114 [id number] 00:00:00 00:00:00 Kinteresa [place] [id number] [facility] 4.2.7.2.686 [id number] 2020-06-08 2020-06-08 Patient Doctor DIVINA [id number] Univers 00:00:00 00:00:00 Secure Msg Unassigned, MEAGHAN [id number] ity of [place] [facility] 4.2.7.2.686 Tor as [id number] [address] 2020-06-08 2020-06-08 Telephone DIVINA Shea 1.2.840.114 [id number] Univers 00:00:00 00:00:00 Alfonzo [place] [id number] it y of HOSPITAL 4.2.7.2.686 Tor as [id number] [address] 2020-06-06 2020-06-06 Laboratory Lab, [facility] [id number] 09:55:39 10:15:39 Only Fam Pob I Health [id number] [place] 4.2.7.2.686 Professio [id number] [place] [address] Office Building [facility] 2020-06-06 2020-06-06 Laboratory Lab, [facility] Fam Pob I [facility] 1.2. 840.114 [id number] [facility] 09:55:39 10:15:39 Only Makayla Diaz [facility] [id number] ity of [place] 4.2.7.2.686 Tor as Professio [id number] Va dical [address] Office Building [facility] 2020-06-06 2020-06-06 Outpatient R [facility] [id number] Univers 10:00:00 10:00:00 ity [facility] 2020-05-26 2020-05-26 Outpatient R ELIANA [facility] [id number] Univers 16:20:00 16:20:[address] [facility] Results Test Description Test Time Test Comments Results Result Comments Source POCT MOLECULAR FLU 2022-12-07 22:05:51 Test Item Value Reference Range Interpretation Comme nts POCT Molecular FluA (test code = 80876-8) Negative Negative POCT Molecular FluB (test code = 09735-1) Negative Negative Lab Interpretation (test code = 10844-8) [facility] [id number] 21:54:25 Test Item Value Reference Range Interpretation Comments POCT Molecular Strep (test code = Positive Negative A 80798-9) Lab Interpretation (test code = Abnormal 61607-6) [facility]
[2023-10-12 02:34] LABS: SARS-CoV-2 Antigen Rapid Res Negative (Negative)
--- NOTE | 2023-10-12 02:50 | ER ---
Nurse's Notes [facility] Name: Pablito Irwin Age: 28 yrs Sex: Female : 1995 Arrival Date: 10/12/2023 Time: 01:56 Bed IW1 Private MD: Diagnosis: Influenza due to other identified influenza virus with other respiratory manifestations Presentation: 10/12 02:02 Chief complaint: Patient states: sore throat started Sunday then followed by fever. rv denies nausea/vomiting. Coronavirus screen: At this time, the client does not indicate any symptoms associated with coronavirus-19. Ebola Screen: No symptoms or risks identified at this time. Initial Sepsis Screen: Does the patient meet any 2 criteria? No. Patient's initial sepsis screen is negative. Does the patient have a suspected source of infection? No. Patient's initial sepsis screen is negative. Risk Assessment: Do you want to hurt yourself or someone else? Patient reports no desire to harm self or others. Onset of symptoms was October 12, 2023. 02:02 Method Of Arrival: Ambulatory rv 02:02 Acuity: ADONIS 4 rv Triage Assessment: 02:04 General: Appears comfortable, Behavior is calm, cooperative. Pain: Complains of pain in rv throat. EENT: Throat is reddened. Neuro: Level of Consciousness is awake, alert, obeys commands, Oriented to person, place, time, situation. Cardiovascular: Capillary refill < 3 seconds Patient's skin is warm and dry. Respiratory: Airway is patent Respiratory effort is even, unlabored. GI: No signs and/or symptoms were reported involving the gastrointestinal system. : No signs and/or symptoms were reported regarding the genitourinary system. Derm: Skin is intact. Historical: - Allergies: 02:04 No Known Allergies; rv - PMHx: 02:04 Depression; rv - PSHx: 02:04 None; rv - Immunization history:: Adult Immunizations up to date. - Social history:: Smoking status: Patient denies any tobacco usage or history of. Screenin:06 [facility] ED Fall Risk Assessment (Adult) History of falling in the last 3 months, rv including since admission No falls in past 3 months (0 pts) Score/Fall Risk Level 0 - 2 = Low Risk Oriented to surroundings, Maintained a safe environment, Educated pt \T\ family on fall prevention, incl call for assistance when getting out of bed, Assessed \T\ reinforced patient's understanding of fall precautions, Provided non-skid footwear, Hourly rounding (assess needs \T\ fall precautionary measures) done, Used ambulatory aids as needed (educated on \T\ assisted with), Used gait belt as appropriate. Abuse screen: Denies threats or abuse. Denies injuries from another. Nutritional screening: No deficits noted. Tuberculosis screening: No symptoms or risk factors identified. Assessment: 02:54 Respiratory: Airway is patent Breath sounds are clear bilaterally. rv Vital Signs: 02:02 BP 124 / 78; Pulse 87; Resp 17; Temp 98.8; Pulse Ox 100% ; Weight 99.79 kg; Height 5 rv ft. 11 in. ; 02:02 Body Mass Index 30.68 (99.79 kg, 180.34 cm) rv ED Course: 01:58 Patient arrived in ED. gm2 02:04 Triage completed. rv 02:04 Arm band placed on right wrist. rv 02:06 Celine Roblero FNP-C is [facility]. snw 02:06 Carlos Alberto Liriano MD is Attending Physician. snw 02:06 Patient has correct armband on for positive identification. rv 02:06 No provider procedures requiring assistance completed. Patient did not have IV access rv during this emergency room visit. Administered Medications: 02:54 Drug: Oseltamivir PO 75 mg PO once Route: PO; rv 02:54 Follow up: Response: Medication administered at discharge. rv 02:54 Drug: Ondansetron PO 4 mg PO once Route: PO; rv 02:54 Follow up: Response: Medication administered at discharge. rv 02:54 Drug: Ketorolac IM 30 mg IM once Route: IM; Site: right deltoid; rv 02:54 Follow up: Response: Medication administered at discharge. rv Medication: 02:06 VIS not applicable for this client. rv Outcome: 02:49 Discharge ordered by . snw 02:55 Discharged to home ambulatory, rv 02:55 Condition: good 02:55 Discharge instructions given to patient, Instructed on discharge instructions, follow up and referral plans. medication usage, Demonstrated understanding of instructions, follow-up care, medications, Prescriptions given X 3, 02:55 Patient left the ED. rv Signatures: Celine Roblero FNP-C FNP-Csnw Rohith Morris, RN RN rv Michael, Bobbi gm2
--- NOTE | 2023-10-12 02:50 | EDPHYS ---
Physician Documentation [facility] Name: Pablito Irwin Age: 28 yrs Sex: Female : 1995 Arrival Date: 10/12/2023 Time: 01:56 Bed IW1 Private MD: ED Physician Carlos Alberto Liriano HPI: 10/12 02:47 This 28 yrs old Black Female presents to ER via Ambulatory with complaints of Fever, snw Sore Throat, Flu Symptoms. 02:47 The patient reports fever, not measured (subjective). Onset: The symptoms/episode snw began/occurred acutely. Associated signs and symptoms: Pertinent positives: sore throat. Severity of symptoms: At their worst the symptoms were moderate. The patient has not experienced similar symptoms in the past, but family has similar symptoms, daughter. The patient has not recently seen a physician. Daughter with Flu . Historical: - Allergies: 02:04 No Known Allergies; rv - PMHx: 02:04 Depression; rv - PSHx: 02:04 None; rv - Immunization history:: Adult Immunizations up to date. - Social history:: Smoking status: Patient denies any tobacco usage or history of. ROS: 02:46 Eyes: Negative for injury, pain, redness, and discharge, snw 02:46 Neck: Negative for injury, pain, and swelling, Cardiovascular: Negative for chest pain, palpitations, and edema, Respiratory: Negative for shortness of breath, cough, wheezing, and pleuritic chest pain, Abdomen/GI: Negative for abdominal pain, nausea, vomiting, diarrhea, and constipation, Back: Negative for injury and pain, : Negative for injury, bleeding, discharge, and swelling, MS/Extremity: Negative for injury and deformity, Skin: Negative for injury, rash, and discoloration, Neuro: Negative for headache, weakness, numbness, tingling, and seizure, Psych: Negative for depression, anxiety, suicide ideation, homicidal ideation, and hallucinations, 02:46 Constitutional: Positive for body aches, fatigue, malaise, poor PO intake, 02:46 ENT: Positive for sore throat, Exam: 02:46 Constitutional: This is a well developed, well nourished patient who is awake, alert, snw and in no acute distress. Head/Face: Normocephalic, atraumatic. Eyes: Pupils equal round and reactive to light, extra-ocular motions intact. Lids and lashes normal. Conjunctiva and sclera are non-icteric and not injected. Cornea within normal limits. Periorbital areas with no swelling, redness, or edema. Neck: Trachea midline, no thyromegaly or masses palpated, and no cervical lymphadenopathy. Supple, full range of motion without nuchal rigidity, or vertebral point tenderness. No Meningismus. Chest/axilla: Normal chest wall appearance and motion. Nontender with no deformity. No lesions are appreciated. Cardiovascular: Regular rate and rhythm with a normal S1 and S2. No gallops, murmurs, or rubs. Normal PMI, no JVD. No pulse deficits. Respiratory: Lungs have equal breath sounds bilaterally, clear to auscultation and percussion. No rales, rhonchi or wheezes noted. No increased work of breathing, no retractions or nasal flaring. Abdomen/GI: Soft, non-tender, with normal bowel sounds. No distension or tympany. No guarding or rebound. No evidence of tenderness throughout. Back: No spinal tenderness. No costovertebral tenderness. Full range of motion. Skin: Warm, dry with normal turgor. Normal color with no rashes, no lesions, and no evidence of cellulitis. MS/ Extremity: Pulses equal, no cyanosis. Neurovascular intact. Full, normal range of motion. Neuro: Awake and alert, GCS 15, oriented to person, place, time, and situation. Cranial nerves II-XII grossly intact. Motor strength 5/5 in all extremities. Sensory grossly intact. Cerebellar exam normal. Normal gait. Psych: Awake, alert, with orientation to person, place and time. Behavior, mood, and affect are within normal limits. 02:46 ENT: TM's: are normal, Nose: is normal, Posterior pharynx: erythema, that is moderate, Vital Signs: 02:02 BP 124 / 78; Pulse 87; Resp 17; Temp 98.8; Pulse Ox 100% ; Weight 99.79 kg; Height 5 rv ft. 11 in. ; 02:02 Body Mass Index 30.68 (99.79 kg, 180.34 cm) rv MDM: 02:11 Patient medically screened. snw 02:48 Differential diagnosis: viral Infection, bacterial infection. Data reviewed: vital snw signs, nurses notes, lab test result(s). I considered the following discharge prescriptions or medication management in the emergency department Medications were administered in the Emergency Department. See MAR. Counseling: I had a detailed discussion with the patient and/or guardian regarding the historical points, exam findings, and any diagnostic results supporting the discharge/admit diagnosis, lab results, the need for outpatient follow up, for definitive care, to return to the emergency department if symptoms worsen or persist or if there are any questions or concerns that arise at home. Special discussion: Based on the history and exam findings, there is no indication for further emergent testing or inpatient evaluation. I discussed with the patient/guardian the need to see the primary care provider for further evaluation of the symptoms. 10/12 02:06 Order name: Flu; Complete Time: 02:46 snw 10/12 02:06 Order name: Strep snw 10/12 02:06 Order name: SARS RAPID; Complete Time: 02:36 snw 10/12 02:43 Order name: Throat Culture EDMS Administered Medications: 02:54 Drug: Oseltamivir PO 75 mg PO once Route: PO; rv 02:54 Follow up: Response: Medication administered at discharge. rv 02:54 Drug: Ondansetron PO 4 mg PO once Route: PO; rv 02:54 Follow up: Response: Medication administered at discharge. rv 02:54 Drug: Ketorolac IM 30 mg IM once Route: IM; Site: right deltoid; rv 02:54 Follow up: Response: Medication administered at discharge. rv Disposition Summary: 10/12/23 02:49 Discharge Ordered Notes: Location: Home snw Condition: Stable snw Diagnosis - Influenza due to other identified influenza virus with other respiratory snw manifestations Followup: snw - With: Emergency Department - When: As needed - Reason: Worsening of condition Followup: snw - With: Private Physician - When: 2 - 3 days - Reason: Recheck today's complaints, Continuance of care, Re-evaluation by your physician Discharge Instructions: - Discharge Summary Sheet snw - Influenza, Adult snw - Pharyngitis snw - Rehydration, Adult snw Forms: - Work release form snw - Medication Reconciliation Form snw - Thank You Letter snw - Antibiotic Education snw - Prescription Opioid Use snw - Patient Portal Instructions snw - Leadership Thank You Letter snw Prescriptions: - Zofran 4 mg Oral tablet - take 1 tablet ORAL route every 12 hours As needed; 12 tablet; Refills: 0, snw Product Selection Permitted - Tessalon Perles 100 mg Oral Capsule - take 1 capsule ORAL route every 8 hours As needed; 15 capsule; Refills: 0, snw Product Selection Permitted - Tamiflu 75 mg Oral capsule - take 1 tablet ORAL route every 12 hours for 5 days; 10 tablet; Refills: 0, snw Product Selection Permitted Addendum: 10/15/2023 20:07 Co-signature as Attending Physician, Carlos Alberto Liriano MD I agree with the assessment s p4 and plan of care. I reviewed the patient's care provided by the Advanced Practice Provider and agree with the diagnosis and treatment plan. Signatures: Dispatcher [employer] Celine Juárez, CAR CLEANING SUPERVISOR-C CAR CLEANING SUPERVISOR-Csnw Rohith Morris RN RN rv Potepalov, Sergey, MD MD sp4
[2023-10-12] MEDS ORDERED: OSELTAMIVIR 75 MG CAP PO ONE (03:01)
[2023-10-12] MEDS ORDERED: KETOROLAC 30 MG/ML INJ ONE (03:01)
[2023-10-12] MEDS ORDERED: ONDANSETRON 4 MG (ODT) TAB ONE (03:01)
[2023-10-12 03:02] VITALS: BP 124/78; TEMP 98.8; O2SAT 100
== END 2023-10-12 02:55 | disposition home or self-care (01) ==
LOC: ER 01:56
DX: J10.1 Influenza due to other identified influenza virus with other respiratory manifestations (principal); Z11.52 Encounter for screening for COVID-19
CPT/HCPCS: 36415; 87070; 87081; 87804; 87811; 96372; 99284; Q0162